=== PATIENT | male | born 1945 | race Caucasian/White ===

== ENCOUNTER 2023-11-12 23:06 | Inpatient (IN) | payer OTHER, SELFPAY ==
[2023-11-12] VITALS (11 sets, daily range): BP systolic 99–127; BP diastolic 59–84; BMI 30.9
[2023-11-12] MEDS: CORDARONE 103 MG IV (21:55)
[2023-11-12 21:57] LABS: % Basophils 0.5 % (0-2); % Eosinophils 6.3 % (0-6); % Immature Granulocytes 0.5 % (0-0.5); % Lymphocytes 24.8 % (20.5-51.1); % Monocytes 11.3 % (1.7-9.3); % Neutrophils 56.6 % (42.2-75.2); Absolute Eosinophils 0.5 10^3/uL (0-0.7); Absolute Lymphocytes 1.8 10^3/uL (1.2-3.4); Absolute Monocytes 0.8 10^3/uL (0.1-0.6); Absolute Neutrophils 4.2 10^3/uL (1.4-6.5); Hematocrit 41.2 % (39.0-52.0); Mean Corpuscular Hgb 28.6 pg (27.0-31.0); Mean Corpuscular Volume 84.3 fL (80.0-94.0); Mean Platelet Volume 10.3 fL (7.4-10.4); Nucleated Red Blood Cells % 0 % (-); Platelet Count 193 10^3/uL (130-400); Red Blood Cell Count 4.89 10^6/uL (4.70-6.10); Red Cell Dist. Width 14.3 % (11.5-14.5); White Blood Cell Count 7.4 10^3/uL (4.8-10.8)
[2023-11-12 22:05] LABS: INR 1.05; PT 13.7 Sec (11.4-14.6)
[2023-11-12 22:06] LABS: APTT 32.4 Sec (23.4-35.0)
--- NOTE | 2023-11-12 22:10 | ED.GENMED ---
History of Present Illness
General
Chief Complaint: Chest Pain
Source: patient and family
Exam Limitations: none
Time Seen by Provider: 11/12/23 21:34
Travel History
Have you had any contact with someone who has COVID-19?: No
Do you have any symptoms of coronavirus? Fever > 100 degrees, chills, cough, shortness of breath, sore throat, loss of taste or smell, muscle aches, or headache?: No
History of Present Illness
History of Present Illness:
78-year-old male with intermittent episodes of substernal chest pain over the last week. At times these are associated with neck pain. These are also associated with dizziness and blurry vision. He has had a few episodes over the last week but
many more episodes today. Described as dull achy. No shortness of breath.
Past History
Past History
ED Past Medical History: COPD, HTN and Hypercholesterolemia
ED Past Surgical History: Orthopedic; Negative Cardiac (cath 06/2013)
Social History
Tobacco: Smoker
Alcohol: Binge drinker
Drug: None
Personal:
Living: with family
Employment: Retired
Family History
Family History: Hypertension
Review of Systems
Review of Systems
All Other Systems: Not applicable
Respiratory: Reports no symptoms
ABD/GI: Reports no symptoms
Phy Exam
Physical Exam
Physical Exam:
GENERAL: Alert and oriented in no apparent distress
EYE: Orbits normal.
NECK: Supple, no thyroid palpable
ENT: Pharynx without erythema
CARDIAC: Regular rate and rhythm without any obvious murmurs. Episodes of pulselessness during V. tach
LUNGS: Clear breath sounds,normal
ABDOMEN: Soft, without focal tenderness or distention
NEUROLOGICAL: Alert and oriented , grossly non-focal
SKIN: Warm and dry
MUSCULOSKELETAL: No edema,no deformity.Good color
PSYCH: Normal and appropriate interaction.
Scores
Heart Score for Chest Pain Patients
STEMI patient?: No
History: Moderately Suspicious
ECG: Nonspecific Repolarization
Age: >/= 65 years
Risk Factors: >/= 3 Risk Factors or History of CAD
Troponin: </= Normal Limit
Heart Score for Chest Pain Patients: 6
Heart Score Risk: 20.3% MACE over next 6 weeks
Course
Orders/Labs/Results
Orders:
Orders
11/12/23 20:58
EKG [Electrocardiogram (*1)] Urgent
Reason for Study: Chest Pain
EKG- Treatment ONCE
11/12/23 21:40
IV Insert/Care/Rem.- Treatment PRN
Pulse Ox/cont/shift [RESP] Stat
Quantity: 1
11/12/23 21:41
Cardiac Monitoring- Treatment ONCE
11/12/23 21:42
Amiodarone [Cordarone] 150 mg .ROUTE .STK-MED ONE
11/12/23 21:49
Basic Metabolic Panel Urgent
Complete Blood Count/With Diff Urgent
Magnesium Urgent
Comment: ADD ON
PTT Urgent
Prothrombin Time Urgent
Troponin I Urgent
11/12/23 21:55
Amiodarone [Cordarone] 150 mg Dextrose 5%/Water 100 ml [D5w] 100 ml IV NOW
11/12/23 21:58
Add On- LAB Urgent
Tests Added?: Magnesium
11/12/23 22:05
Amiodarone [Cordarone] 900 mg DEXTROSE 5% PVC-free BAG [D5W PVC-free BAG] 500 ml IV NOW
Initial Dose in mg/min:: 1
Duration of initial dose (hours):: 6
Subsequent dose in mg/min:: 0.5
Duration of subsequent dose (hours):: 18
Maximum dose in mg/min:: 1
Hold and notify provider if:: Heart rate < 60 BPM or SBP < 90 mmHg or MAP < 60 mmHg
11/12/23 22:13
EKG [Electrocardiogram (*1)] Urgent
Reason for Study: Chest Pain
EKG- Treatment ONCE
11/12/23 22:15
CR Chest Portable - 1 View Urgent
Comment:
Reason For Exam: cp
Reason Study Needs to be Portable: Unable to Transport
11/12/23 23:01
Admit/Transfer Patient As Directed
Co-Sign Provider:
Level of Care: Inpatient admission
Assign to:: IVU
Physician / Group: ian
Diagnosis: nonsustained vtach
Reason for Hospitalization: nonsustained vtach
Expected length of stay greater than two midnights?: Yes
ELOS- Estimated Length of Stay in days: 2
I certify the patient meets the requirements for IP care: Yes
11/12/23 23:03
Code Status As Directed
Resuscitation Status: Full Code
11/13/23 00:42
Amiodarone [Cordarone] 900 mg DEXTROSE 5% PVC-free BAG [D5W PVC-free BAG] 500 ml IV PER PROTOCOL
Initial Dose in mg/min:: 1
Duration of initial dose (hours):: 6
Subsequent dose in mg/min:: 0.5
Duration of subsequent dose (hours):: 18
Maximum dose in mg/min:: 1
Hold and notify provider if:: Heart rate < 60 BPM or SBP < 90 mmHg or MAP < 60 mmHg
11/13/23 00:42
Activity As Directed
Activity Level: As Tolerated
Vital Signs As Directed
Frequency: Per unit guidelines
DX Deep Vein Thrombosis Video Routine
11/13/23 05:13
Complete Blood Count/With Diff IN AM
Comprehensive Metabolic Panel IN AM
11/13/23 08:00
Heparin 5,000 units SC Q12
11/13/23 Dinner
Cholesterol Lowering
At Your Request: Full Participation
Does patient need a safe tray?: No
Cholesterol Lowering: Sodium, 2 Gram
Abnormal Lab Results
11/12/23
21:49
Absolute Monos (auto) 0.8 H 10^3/uL
(0.1-0.6)
Monocytes % 11.3 H %
(1.7-9.3)
Eosinophils % 6.3 H %
(0-6)
Carbon Dioxide 20 L mmol/L
(22-30)
Glucose 130 H mg/dl
(70-99)
11/12/23 21:49
11/12/23 21:49
Vital Signs
Initial and Last Documented VS:
Initial Vital Signs
Temp Pulse Resp BP Pulse Ox
98.0 F 115 20 108/84 96
11/12/23 20:59 11/12/23 20:59 11/12/23 20:59 11/12/23 20:59 11/12/23 20:59
Last Documented Vital Signs
Temp Pulse Resp BP Pulse Ox
97.7 F 63 18 116/64 94
11/13/23 22:54 11/14/23 00:00 11/13/23 22:54 11/13/23 23:02 11/13/23 22:54
*Pulse Oximetry
Patient hypoxic: no
*EKG
Interpreted by ED Provider?: Yes
Interpretation: abnormal
Comparison EKG: changes noted
Heart Rate: 110
Rate: tachycardiac
Rhythm: sinus
[place]: left axis deviation
Interval: normal interval
QRS Pattern: normal QRS
Ischemia: non-specific ST changes
*Ship Erector Interpretation
Rate: normal
Interpretation: abnormal
Heart Rate: 80
Rhythm: sinus and other (Multiple episodes of runs of V. tach typically 6-12 beats.)
*Critical Care Note
Total Time (30-74mins, 75-104mins- exclusive of procedures): 45
Data Reviewed
Review of Other/Old Records Reveals: Labs, Records, Testing and Discharge Summary
Update Note
Update Note:
Patient with multiple episodes of V. tach. These seem to correlate with his symptoms. Amiodarone 150 ordered and drip ordered. Reviewed his QT interval. We will hold his other QT prolonging meds this evening. Discussed with cardiology. Patient
currently asymptomatic.
2240... Repeat EKG sinus rhythm with first-degree block PACs left bundle branch block. Occasional PVC. Patient has bibasilar changes on x-ray but no acute lung symptoms
ED Attending Note
-
Portions of this chart may have been created with voice recognition software.� Occasional wrong word or��sound alike� substitutions may have occurred due to the inherent limitations of voice recognition software.
Discharge Plan
Departure
Patient Disposition: Admit
Date of Disposition: 11/12/23
Time of Disposition: 22:12
Presentation/result/management discussed w/ accepting MD/DO: Cardiology
Discharge Problem:
Recurrent nonsustained V. tach
Interventions
Interventions:
*Risk Screen - Suicide Last Done: 11/12/23 20:59
*General Assessment Last Done: 11/12/23 20:59
*Neglect/Abuse Screening Last Done: 11/12/23 20:59
ED- Fall Risk Assessment Last Done: 11/12/23 21:54
*ED COVID-19 Vaccine History Last Done: 11/13/23 00:49
*Nursing Disposition Last Done: 11/13/23 00:50
ED- Cardiac Assessment Last Done: 11/12/23 21:54
Discharge Date and Time
Discharge Date/Time: 11/13/23 00:50
[2023-11-12 22:13] LABS: Blood Urea Nitrogen 18 mg/dl (9-20); Carbon Dioxide 20 mmol/L (22-30); Chloride 105 mmol/L (98-107); Estimated Creatinine Clearance 55 ml/min; Glucose 130 mg/dl (70-99); Magnesium 1.8 mg/dl (1.6-2.3); Sodium 138 mmol/L (135-145); eGFR > 60.00
[2023-11-12 22:20] LABS: Troponin I 0.015 ng/ml
[2023-11-12] MEDS: CORDARONE 518 MG IV (22:24)
--- NOTE | 2023-11-12 23:10 | HPS.HSE ---
Family Physician
-
Family Physician: Steven Reynolds
Chief Complaint
-
chest pain
History of Present Illness
78-year-old male with past medical history of nonischemic cardiopathy/HFrEF, orthostatic hypotension, hypertension, hyperlipidemia, COPD, obstructive sleep apnea, cognitive dysfunction, recurrent/smoldering distal descending colon diverticulitis
status post sigmoidectomy, obesity, presenting with intermittent episodes of substernal chest pain described as dull and achy over the past week also associated with neck pain sometimes radiating to ears and associated with warmth. Also has
dizziness and blurry vision. No shortness of breath. He had a few episodes over the past week but many more episodes today.
Medical History
Past Medical History
Past Medical History: Reports Other (nonischemic cardiopathy/HFrEF, orthostatic hypotension, hypertension, hyperlipidemia, COPD, obstructive sleep apnea, cognitive dysfunction, recurrent/smoldering distal descending colon diverticulitis status post
sigmoidectomy, obesity)
Past Surgical History: Reports None
Social History
Tobacco: Non-smoker
Alcohol: None
Drug: None
Family History
Family History: Not pertinent
Allergies / Home Medications
Allergies reflects when Allergies were last updated in [facility].
Home Medications with original date entered in [facility]
Allergy/Medication List:
Allergies
Allergy/AdvReac Type Severity Reaction Status Date / Time
No Known Allergies Allergy Verified 11/12/23 20:58
Home Medications
aspirin 81 mg tablet,delayed release 81 mg PO Q48H Blood clot prevention/tx 10/05/22
atorvastatin 40 mg tablet (Lipitor) 40 mg PO DAILY High cholesterol 10/05/22
budesonide-formoterol HFA 160 mcg-4.5 mcg/actuation aerosol inhaler 2 puff inhalation R BID Lung/breathing issues 10/05/22
citalopram 10 mg tablet 10 mg PO DAILY Mental Health/Anxiety 10/05/22
levocetirizine 5 mg tablet (Xyzal) 5 mg PO HS Allergies 10/05/22
gabapentin 300 mg capsule 300 mg PO HS Pain 11/03/22
lisinopril 10 mg tablet 10 mg PO DAILY Blood Pressure 11/03/22
metoprolol succinate 25 mg tablet,extended release 24 hr (Toprol XL) 25 mg PO BID Blood Pressure 08/21/23
pantoprazole 40 mg tablet,delayed release 40 mg PO DAILY Gastrointestinal issue 30 days #30 tabs 08/27/23
aspirin 325 mg tablet 325 mg PO ONCE 11/12/23
guaifenesin 200 mg tablet 200 mg PO BID 11/12/23
Review of Systems
-
History Source: Patient
A 12 point ROS was completed and negative except as noted: Yes
Constitutional: Reports No Symptoms
EENT: Reports No Symptoms
Respiratory: Reports No Symptoms
Cardiac: Reports No Symptoms
Abdomen/GI: Reports No Symptoms
: Reports No Symptoms
Musculoskeletal: Reports No Symptoms
Skin: Reports No Symptoms
Neurological: Reports No Symptoms
Endocrine: Reports No Symptoms
Hematologic/Lymphatic: Reports No Symptoms
Psych: Reports No Symptoms
Physical Exam
Vital Signs
Vital Signs
Temp Pulse Resp BP Pulse Ox
98.0 F 97 16 123/75 95
11/12/23 20:59 11/12/23 22:30 11/12/23 22:30 11/12/23 22:30 11/12/23 22:30
Physical Exam
General: Well Developed, Well Nourished and No Apparent Distress
HEENT: NormoCephalic, Moist mucous membranes and Atraumatic
Respiratory: Clear
Cardiac: S1/S2 and Regular Rhythm; No Murmur or Rub
GI: Soft, Non Tender, Non Distended and Normal Bowel Sounds; No Organomegaly
Rectal: Deferred by Provider
Musculoskeletal: No Clubbing, No Cyanosis and No Edema
Skin: No Rash
Neuro: Nonfocal/grossly intact
Laboratory Results
-
11/12/23 21:49
11/12/23 21:49
Laboratory Results
PT 13.7 Sec (11.4-14.6) 11/12/23 21:49
INR 1.05 11/12/23 21:49
APTT 32.4 Sec (23.4-35.0) 11/12/23 21:49
Troponin I 0.015 ng/ml 11/12/23 21:49
Data Reviewed
-
Lab Data: Labs Reviewed by me
Old Records: Reviewed
Impression/Plan
-
IMPRESSION:
PLAN:
# Multiple episodes of nonsustained ventricular tachycardia
-EKG shows sinus rhythm with first-degree AV block with PACs, left bundle branch block
-Cardiology recommended amiodarone drip
-QTc of 442
-Hold citalopram to avoid QT prolongation
-Troponin 0.015, continue to trend
-Check chest x-ray
-Continue aspirin
Chronic HFrEF/nonicshemic cardiomyopathy
-Recent echo shows 40 to 45% EF
-Continue metoprolol
Essential hypertension
-Continue lisinopril
Orthostatic hypotension
Hyperlipidemia
-Continue statin
COPD
Obstructive sleep apnea
-Noncompliant with CPAP
Mild cognitive impairment
-Hold citalopram
Recurrent diverticulitis status post sigmoidectomy
Obesity
GERD
-Continue Protonix
Full code
DVT prophylaxis- heparin
Cardiac diet
[2023-11-13] VITALS (9 sets, daily range): BP systolic 103–117; BP diastolic 62–96; BMI 30.9
[2023-11-13] MEDS: TYLENOL 650 MG PO (01:28)
[2023-11-13] MEDS: ASPIR LOW (ENTERIC COATED) 81 MG PO (01:28)
--- NOTE | 2023-11-13 01:54 | PTCARENOTE ---
Pt rec'd from ED on stretcher awake,alert c/o blurriness, Sinus on telemetry with with occ pvc's first degree with BBB. + cough non productive. Iv Amio gtt infusing at 1 mg/hr. Pt made aware to call nursing if pain at site.
--- NOTE | 2023-11-13 05:34 | PTCARENOTE ---
Pt remains sinus no VT noted. Amio gtt titrated per protocol to 0.5 mg /hr 16.7 ml/hr
[2023-11-13 05:47] LABS: % Basophils 0.3 % (0-2); % Eosinophils 7.8 % (0-6); % Immature Granulocytes 0.5 % (0-0.5); % Lymphocytes 26.1 % (20.5-51.1); % Monocytes 10.8 % (1.7-9.3); % Neutrophils 54.5 % (42.2-75.2); Absolute Eosinophils 0.5 10^3/uL (0-0.7); Absolute Lymphocytes 1.5 10^3/uL (1.2-3.4); Absolute Monocytes 0.6 10^3/uL (0.1-0.6); Absolute Neutrophils 3.2 10^3/uL (1.4-6.5); Hemoglobin 13.2 g/dL (13.0-18.0); Mean Corpuscular Hgb 28.5 pg (27.0-31.0); Mean Corpuscular Volume 86.4 fL (80.0-94.0); Mean Platelet Volume 10.4 fL (7.4-10.4); Nucleated Red Blood Cells % 0 % (-); Platelet Count 170 10^3/uL (130-400); Red Blood Cell Count 4.63 10^6/uL (4.70-6.10); Red Cell Dist. Width 14.3 % (11.5-14.5); White Blood Cell Count 5.9 10^3/uL (4.8-10.8)
[2023-11-13 06:08] LABS: ALT (SGPT) 19 U/L (0-50); AST (SGOT) 24 U/L (17-59); Albumin 3.4 g/dl (3.5-5.0); Alkaline Phosphatase 104 U/L (38-126); Blood Urea Nitrogen 16 mg/dl (9-20); Calcium 8.4 mg/dl (8.4-10.2); Carbon Dioxide 23 mmol/L (22-30); Chloride 109 mmol/L (98-107); Estimated Creatinine Clearance 53 ml/min; Glucose 116 mg/dl (70-99); Potassium 3.8 mmol/L (3.5-5.1); Sodium 138 mmol/L (135-145); Total Bilirubin 0.6 mg/dl (0.2-1.3); Total Protein 5.7 g/dl (6.3-8.2); eGFR > 60.00
[2023-11-13 06:10] LABS: Troponin I 0.019 ng/ml
--- NOTE | 2023-11-13 06:18 | PTCARENOTE ---
Pt called nursing to room stating he felt something wet at his iv site. some leakage noted on drsg. small infiltrate noted. no redness or cord noted
IV Amio gtt switched to RFA.
--- NOTE | 2023-11-13 06:28 | PTCARENOTE ---
IV team notified of left wrist iv site leaking (amio site) iv site removed.
[2023-11-13] MEDS: SYMBICORT 160/4.5 MCG INHALER 2 PUFF INH ×2 (07:55→17:48)
[2023-11-13] MEDS: ZESTRIL 10 MG PO (08:34)
[2023-11-13] MEDS: HEPARIN 5000 UNITS SC ×2 (08:34→19:33)
[2023-11-13] MEDS: LIPITOR 40 MG PO (08:34)
[2023-11-13] MEDS: PROTONIX 40 MG PO (08:34)
[2023-11-13] MEDS: ROBITUSSIN 200 MG PO ×2 (08:34→19:34)
[2023-11-13] MEDS: TOPROL XL 25 MG PO ×2 (08:34→19:34)
--- NOTE | 2023-11-13 08:55 | PTCARENOTE ---
assumed care of pt from previous shift RN, sinus rhythm on tele w 1st degree HB and BBB, + peripheral pulses, no edema, denies CP or SOB. Lungs diminished bilaterally. POx 94% on RA. +BS, NPO maintained until see by . Amiodarone infusing through
right FA PIV.
--- NOTE | 2023-11-13 08:55 | CON.CAR ---
Addendum entered and electronically signed by Mendez Todd MD 11/13/23 10:21:
78-year-old man with history of nonischemic cardiomyopathy with improved EF, most recent EF 45% by cardiac catheterization in 2022. No significant coronary artery disease identified at cardiac catheterization. Now admitted with 2 or 3 episodes of
dizziness and lightheadedness last week, associated with tightness in the neck at the moment of symptoms, with 3 or 4 episodes yesterday all occurring at rest. Presented to emergency department with runs of rapid nonsustained VT correlating with
symptoms.
PMH: Nonischemic cardiomyopathy, most recent EF 45%, possibly alcohol related, COPD, hypertension, hyperlipidemia, possible mild cognitive impairment, untreated sleep apnea, history of PVCs with 2 episodes of nonsustained VT on monitor September
2021, depression
SH: , retired, lives with daughter, former smoker, former alcohol
FH: Noncontributory
Surgical history: Numerous orthopedic procedures hands, knees, feet, robotic sigmoidectomy September 2023
Allergies: None
Review of systems: Negative except as above
Hemoglobin 13.2 platelets 170, BUN and creatinine 16 and 1.2, magnesium 1.8, troponin is 0.019 and 0.015
Chest x-ray no active disease
ECG: Sinus rhythm, first-degree AV block left axis, left bundle branch block, PVCs
Impression:
Symptomatic nonsustained VT
Nonischemic cardiomyopathy with improved EF, most recent EF 45% 2022, possibly alcohol related
Minimal coronary artery disease by cardiac catheterization 2022
COPD
History of alcohol use disorder
History of tobacco use, rare cigars now
Hypertension
Hyperlipidemia
History of PVCs
Untreated obstructive sleep apnea
Robotic sigmoidectomy September 2023
Plan:
He presents with symptomatic nonsustained VT at a rapid cycle length.
I suspect VT relates to nonischemic cardiomyopathy and am skeptical that it is a manifestation of an acute coronary syndrome or severe obstructive CAD. At this point, I do not feel pressed to repeat cardiac catheterization in the past, we have
canceled stress testing related to concerns about dobutamine and regadenoson. However, will discuss with electrophysiology regarding need for cardiac catheterization.
We will repeat echocardiogram.
Will also review with EP as to best treatment strategy for VT, options likely limited to amiodarone versus VT ablation. He is already on metoprolol and in the past has tolerated carvedilol poorly probably related to COPD.
Original Note:
Consultation
Consultation Request
Date/Time Consultation Requested: 11/12/2023
Date/Time Consultation Performed: 11/13/2023
Requesting Provider: Dr. Arreguin
Performing Provider: Rekha Cowart PA-C for Dr. Mendez Todd
Reason for Consultation: Chest pain, arrhythmia
Medical History
-
History of Present Illness:
Patient is a 78-year-old male with past medical history significant for nonobstructive coronary artery disease on cardiac catheterization October 2022, nonischemic cardiomyopathy with mildly reduced ejection fraction of 45%, hypertension,
hyperlipidemia, former smoker with COPD, obstructive sleep apnea with intolerance to CPAP and recurrent diverticulitis recent robotic sigmoidectomy in September 2023 who presented to emergency department 11/12/2023 with intermittent chest pain
radiating into neck associated with warmth sensation, dizziness and blurry vision. He reports symptoms have been intermittent and ongoing for approximately 2 to 3 weeks. They seem to be increasing in frequency. He denies having syncope or
presyncope. Baseline EKG on presentation showed sinus rhythm with first-degree AV block, PACs and left bundle branch block. QTc 442 ms. Troponin 0.015, 0.019. Potassium 4.0, magnesium 1.8. Chest x-ray stable bibasilar atelectasis scarring. In
emergency department he was noted to have multiple episodes of nonsustained ventricular tachycardia which correlated with his symptoms. He was provided IV amiodarone bolus and drip.
At time of this evaluation patient is feeling well. He has not had any further symptoms since starting Amio gtt.
PMH:
Nonischemic cardiomyopathy, EF 45%
Nonobstructive coronary artery disease
Hypertension
Hyperlipidemia
PVCs
Former smoker
COPD
Obstructive sleep apnea, CPAP intolerant
Diverticulitis s/p robotic sigmoidectomy on 09/17/2023
Past Medical History
Past Medical History: Other (See HPI)
Past Surgical History: Bowel Resection (s/p robotic sigmoidectomy on 09/17/2023), Orthopedic (Right knee arthroscopy, right foot surgery, bilateral hand surgery) and Other (Bilateral hernia repair)
Social History
Tobacco: Former Smoker (quit cigarettes 2001, occasional cigar)
Alcohol: Occasional (rare 1-2 drinks a month)
Drug: None
Personal:
Living: With Family
Family History
Family History: Other (Father had dementia, mother diabetes and heart disease)
Allergies / Home Medications
Allergy/AdvReac Type Severity Reaction Status Date / Time
No Known Allergies Allergy Verified 11/13/23 01:03
Medication Instructions Recorded Confirmed Type
aspirin 81 mg tablet,delayed 81 mg PO Q48H Blood clot 10/05/22 11/12/23 History
release prevention/tx
atorvastatin 40 mg tablet (Lipitor) 40 mg PO DAILY High cholesterol 10/05/22 11/12/23 History
budesonide-formoterol HFA 160 2 puff inhalation R BID 10/05/22 11/12/23 History
mcg-4.5 mcg/actuation aerosol Lung/breathing issues
inhaler
citalopram 10 mg tablet 10 mg PO DAILY Mental 10/05/22 11/12/23 History
Health/Anxiety
levocetirizine 5 mg tablet (Xyzal) 5 mg PO HS Allergies 10/05/22 11/12/23 History
gabapentin 300 mg capsule 300 mg PO HS Pain 11/03/22 11/12/23 History
lisinopril 10 mg tablet 10 mg PO DAILY Blood Pressure 11/03/22 11/12/23 History
metoprolol succinate 25 mg 25 mg PO BID Blood Pressure 08/21/23 11/12/23 History
tablet,extended release 24 hr
(Toprol XL)
pantoprazole 40 mg tablet,delayed 40 mg PO DAILY Gastrointestinal 08/27/23 11/12/23 Rx
release issue 30 days #30 tabs
aspirin 325 mg tablet 325 mg PO ONCE 11/12/23 11/12/23 History
guaifenesin 200 mg tablet 200 mg PO BID 11/12/23 11/12/23 History
Review of Systems
-
History Source: Patient
All other systems: Negative unless noted
Physical Exam
Vital Signs
Temp Pulse Resp BP Pulse Ox
97.5 F 63 18 115/66 95
11/13/23 07:57 11/13/23 08:00 11/13/23 07:59 11/13/23 07:57 11/13/23 07:59
GEN: No distress, awake, Ox3
HEENT: supple, anicteric, mmm
LUNGS:faint crackles at bases otherwise CTA, no wheezes/rales
CV: Reg, S1/S2, no murmur, rub or gallop
ABD: soft, BS+, NT/ND
EXT: No edema, clubbing or cyanosis
NEURO: Gross non-focal
SKIN: No rash, warm, dry, pink
Lab Results
11/13/23 05:13
11/13/23 05:13
Troponin I Cancelled 11/13/23 12:42
Impression / Plan
-
PCP: Steven Reynolds
Personal Lines Advisor: Dr. EDGAR Todd
Impression:
Presented with 11/12/2023 with intermittent chest pain, blurry vision and dizziness
Nonsustained ventricular tachycardia
Recent admission 09/2023 for recurrent diverticulitis
s/p robotic sigmoidectomy on 09/17/2023
Nonischemic cardiomyopathy, EF 45%
Nonobstructive coronary artery disease
Hypertension
Hyperlipidemia
PVCs
Former smoker
COPD
Obstructive sleep apnea, CPAP intolerant
Nuclear Sestamibi 10/30/22. Mild to moderate-sized, mid intensity defect in the basal, mid, inferior and apical segments. Summed rest score was 4.
Cardiac cath 11/03/2022:�LM: NL; LAD: LI, A [employer] wire was advanced to the distal LAD and the iFR serially measured at/above the ischemic threshold. RAMUS:LI. LCX:LI. RCA: LI.� LVG:Mildly reduced LVEF estimated 45% with moderate global
hypokinesis that is more pronounced in the inferior and anterolateral gallegos
Echo 10/30/22: EF 40-45%,� mild concentric LVH with inferior, anteroseptal, and focal apical hypokinesis. Thickened mitral leaflets w/ trace MR. nl LA. trace AR. nl RV. nl RA. aortic root is 4cm. Similar to December 2021.
Echo 09/16/2023: EF 40 to 45%, mild global hypokinesis, stage I diastolic dysfunction, mild MR, trace TR, mildly dilated aortic root at 4.0 cm.
Plan:
Patient is a 78-year-old male with past medical history significant for nonobstructive coronary artery disease on cardiac catheterization October 2022, nonischemic cardiomyopathy with mildly reduced ejection fraction of 45%, hypertension,
hyperlipidemia, former smoker with COPD, obstructive sleep apnea with intolerance to CPAP and recurrent diverticulitis recent robotic sigmoidectomy in September 2023 who presented to emergency department 11/12/2023 with intermittent chest pain
radiating into neck associated with warmth sensation, dizziness and blurry vision. He reports symptoms have been intermittent and ongoing for approximately 2 to 3 weeks. They seem to be increasing in frequency. He denies having syncope or
presyncope. Baseline EKG on presentation showed sinus rhythm with first-degree AV block, PACs and left bundle branch block. QTc 442 ms. Troponin 0.015, 0.019. Potassium 4.0, magnesium 1.8. Chest x-ray stable bibasilar atelectasis scarring. In
emergency department he was noted to have multiple episodes of nonsustained ventricular tachycardia which correlated with his symptoms. He was provided IV amiodarone bolus and drip.
At time of this evaluation patient is feeling well. He has not had any further symptoms since starting Amio gtt.
-Presented with 11/12/2023 with intermittent chest pain, blurry vision and dizziness.
-Nonsustained ventricular tachycardia multiple episodes 4-12 beats which was symptomatic and correlated with above symptoms.
-Negative troponin x 2.
-Provided amiodarone bolus 150 mg followed by drip starting 11/12/2023.
-No further VT on tele since initiation of Amiodarone, still occasional PVCs
-Start oral Amiodarone 400 mg TID.
-Monitor QTc closely, will repeat EKG daily. EKG 11/13/2023 pending
-Check echo.
-Would hold/Avoid QT prolonging medication including Citalopram
-K+3.8 and magnesium 1.8. Will replete keep K greater than 4 and magnesium greater than 2
-Patient has history of nonobstructive coronary artery disease on cardiac cath 11/03/2022
-History of NICM. Continue Toprol, Lisinopril.
-Will discuss with electrophysiology.
Data Reviewed
-
EKG: Report Reviewed by me, Discussed with Physician, Discussed with Nurse, Discussed with Patient and Discussed with Family
Radiology: Report Reviewed by me, Discussed with Physician, Discussed with Nurse, Discussed with Patient and Discussed with Family
Labs: Labs Reviewed by me, Discussed with Physician, Discussed with Nurse, Discussed with Patient and Discussed with Family
Old Records: Reviewed
--- NOTE | 2023-11-13 10:14 | W.PN.HOSP.TC ---
Today's Communication/Plan
-
Amiodarone drip
Cardio consult
Assessment / Plan
Assessment / Plan
# Multiple episodes of Symptomatic nonsustained ventricular tachycardia
-EKG shows sinus rhythm with first-degree AV block with PACs, left bundle branch block
-Cardiology recommended amiodarone drip
-QTc of 442
-Hold citalopram to avoid QT prolongation
-Troponin 0.015, continue to trend
-chest x-ray: Stable bibasilar atelectasis/scarring. No convincing acute cardiopulmonary process.
-Continue aspirin
09/16/23 Echo: Normal left ventricular wall thickness. Normal left ventricular chamber size.
�Mildly reduced left ventricular systolic function. Left ventricular ejection
�fraction is 40 to 45% visually.� Mild global hypokinesis.� Stage I diastolic
�dysfunction suggestive of abnormal relaxation.
�Mildly dilated aortic root. 4.0 cm.
�Since echocardiogram October 2022, there is no significant change.
Chronic HFrEF/nonischemic cardiomyopathy
-Recent echo shows 40 to 45% EF
-Continue metoprolol
Essential hypertension
-Continue lisinopril
Orthostatic hypotension
Hyperlipidemia
-Continue statin
COPD
Obstructive sleep apnea
-Noncompliant with CPAP
Mild cognitive impairment
-Hold citalopram
Recurrent diverticulitis status post sigmoidectomy
Pt states currently asymptomatic
Hx of Cigarette use in past
currently rare Cigars only
Obesity
GERD
-Continue Protonix
Full code
DVT prophylaxis- heparin
Cardiac diet
Anticipated Discharge: > 48 hours
Subjective/Interval History
-
Date of Service: November 13, 2023
Awake, alert, denies chest pain
Objective Data
-
Labs:
Laboratory Results
11/13/23
05:13
WBC 5.9
Hgb 13.2
Hct 40.0
Plt Count 170
Sodium 138
Potassium 3.8
Chloride 109 H
Carbon Dioxide 23
BUN 16
Creatinine 1.2
Glucose 116 H
Calcium 8.4
Total Bilirubin 0.6
AST 24
ALT 19
Alkaline Phosphatase 104
Vital Signs:
Vital Signs
Temp Pulse Resp BP Pulse Ox
97.5 F 63 18 115/66 94
11/13/23 07:57 11/13/23 08:00 11/13/23 07:59 11/13/23 07:57 11/13/23 09:06
I&O
11/12/23 11/13/23 11/14/23
06:59 06:59 06:59
Intake Total 300 / 300 16.7 / 16.7
Output Total 500 / 500
Balance -200 / -200 16.7 / 16.7
Review of Systems
-
History Source: Patient and Coordinated Provider
Constitutional: Denies Fever
EENT: Reports No Symptoms Reported
Respiratory: Reports No Symptoms; Denies Cough or Trouble Breathing
Cardiac: Reports No Symptoms; Denies Chest Pain (prior to admission, radiating into neck with warmth sensation, none since admission), Palpitations or Orthopnea
Abdomen/GI: Reports No Symptoms
Genitourinary: Reports No Symptoms
Neuro: Reports Dizzy (prior to admit, since resolved)
Physical Exam
-
General: Well Developed, Well Nourished and No Apparent Distress
HEENT: Normocephalic, Atraumatic and Moist Mucous Membranes
Respiratory: Rales (fine bibasilar rales, noted on deep inspiration)
Cardiac: Regular Rhythm and S1/S2
GI: Soft, Nontender and Nondistended
Musculoskeletal: No Clubbing, No Cyanosis and No Edema
Neuro: Awake, Alert and Oriented
Psych: Calm
[2023-11-13] MEDS: KCL 40 MEQ PO (10:25)
[2023-11-13] MEDS: PACERONE 400 MG PO ×3 (10:25→23:02)
[2023-11-13] MEDS: MAGNESIUM OXIDE 500 MG PO (10:25)
[2023-11-13 10:56] LABS: NT-proBNP 234 pg/ml; Troponin I 0.016 ng/ml
--- NOTE | 2023-11-13 12:14 | CM ---
Chart reviewed. Patient is independent of ADLS, lives with his grandson in an apartment, [address], 0 [address]ILVER, 0 DME. Patient is not current with VN and said he is not interested. He said his granddaughter works in his [employer]'s office. Plan
is for the patient to return home. CM to follow
--- NOTE | 2023-11-13 14:21 | PTCARENOTE ---
amiodarone gtt discontinued, IV removed and new IV started.
[2023-11-13 14:25] LABS: TSH Reflex To Free T4 3.38 uIU/ml (0.47-4.68)
--- NOTE | 2023-11-13 17:27 | W.PN.UPDATE ---
Update Note
Progress Note Update
Spoke with Dr. Todd, daughter, plan to meet with patient regarding his symptoms. Had 15 minutes of near syncope and heart racing yesterday and came to the ER. He was found to have salvos of non sustained ventricular tachycardia here and IV
amiodarone was initiated. His EF% by echo here is 30-35% and is similar to 09/2023 echocardiogram in review of those images. He is on beta-rissa and MARQUES-I. QRS duration is 122-128msec with prolonged MI interval in LBBB pattern.
Reviewed options with daughter and plan to with patient and discussed implant as well as risks in detail. Will plan IV/PO amiodarone transition and BIVICD thursday. Daughter and Dr. Todd in agreement.
[2023-11-13] MEDS: NEURONTIN 300 MG PO (22:59)
[2023-11-13] MEDS: ZYRTEC 5 MG PO (22:59)
[2023-11-14] VITALS (7 sets, daily range): BP systolic 100–124; BP diastolic 50–76; BMI 30.4
--- NOTE | 2023-11-14 00:32 | PTCARENOTE ---
Pt received at start of shift. HR SR/SB w/ 1st degree HB and BBB 50s-70s. BP stable. Pt in bed with daughter at bedside. Educated pt on plan of care, pt states no further questions. Pt denies any CP, vision changes, or lightheadedness/dizziness at
this time. Informed to notify RN if any changes, call simental within reach.
--- NOTE | 2023-11-14 04:38 | PTCARENOTE ---
swelling noted at IV site where amio infused at L wrist/forearm area. Pt states tender to touch. Ice pack placed on site.
[2023-11-14 05:21] LABS: Blood Urea Nitrogen 19 mg/dl (9-20); Calcium 9.2 mg/dl (8.4-10.2); Carbon Dioxide 22 mmol/L (22-30); Chloride 106 mmol/L (98-107); Estimated Creatinine Clearance 58 ml/min; Glucose 97 mg/dl (70-99); Potassium 4.6 mmol/L (3.5-5.1); Sodium 139 mmol/L (135-145); eGFR > 60.00
[2023-11-14] MEDS: SYMBICORT 160/4.5 MCG INHALER 2 PUFF INH ×2 (08:16→18:01)
[2023-11-14] MEDS: PROTONIX 40 MG PO (08:46)
[2023-11-14] MEDS: PACERONE 400 MG PO ×3 (08:47→22:19)
[2023-11-14] MEDS: ZESTRIL 10 MG PO (08:47)
[2023-11-14] MEDS: ROBITUSSIN 200 MG PO ×2 (08:47→20:31)
[2023-11-14] MEDS: HEPARIN 5000 UNITS SC ×2 (08:47→20:31)
[2023-11-14] MEDS: TOPROL XL 25 MG PO (08:47)
[2023-11-14] MEDS: LIPITOR 40 MG PO (08:47)
--- NOTE | 2023-11-14 10:11 | W.PN.CARDCBS ---
Today's Communication / Plan
-
Stop lisinopril
Start Entresto
Start spironolactone
BiV ICD on Thursday
Impression / Plan
-
PCP: Steven Reynolds
Lab Intern: Dr. EDGAR Todd
Impression:
Presented with 11/12/2023 with intermittent chest pain, blurry vision and dizziness
Nonsustained ventricular tachycardia
Recent admission 09/2023 for recurrent diverticulitis
s/p robotic sigmoidectomy on 09/17/2023
Nonischemic cardiomyopathy, EF 45%
Nonobstructive coronary artery disease
Hypertension
Hyperlipidemia
PVCs
Former smoker
COPD
Obstructive sleep apnea, CPAP intolerant
Nuclear Sestamibi 10/30/22. Mild to moderate-sized, mid intensity defect in the basal, mid, inferior and apical segments. Summed rest score was 4.
Cardiac cath 11/03/2022:�LM: NL; LAD: LI, A [place] Omni wire was advanced to the distal LAD and the iFR serially measured at/above the ischemic threshold. RAMUS:LI. LCX:LI. RCA: LI.� LVG:Mildly reduced LVEF estimated 45% with moderate global
hypokinesis that is more pronounced in the inferior and anterolateral gallegos
Echo 10/30/22: EF 40-45%,� mild concentric LVH with inferior, anteroseptal, and focal apical hypokinesis. Thickened mitral leaflets w/ trace MR. nl LA. trace AR. nl RV. nl RA. aortic root is 4cm. Similar to December 2021.
Echo 09/16/2023: EF 40 to 45%, mild global hypokinesis, stage I diastolic dysfunction, mild MR, trace TR, mildly dilated aortic root at 4.0 cm.
Echo 11/13/2023: EF 30-35%, global hypokinesis, mild LVH, trace MR, aortic valve grossly normal, right atrium normal left atrium mildly dilated, RV normal, trace TR
Plan:
Case reviewed with electrophysiology. Based on EF of 30 to 35%, with left bundle branch block, biventricular ICD is planned for Thursday.
In the meantime, will switch lisinopril to Entresto, continue metoprolol and amiodarone, add low-dose spironolactone, and consider SGLT2 antagonist. Potassium is 4.6 will need to follow. We may need to decrease metoprolol.
Based on catheterization roughly 1 year ago, we will not repeat at this time, suspect there is no ongoing ACS.
proBNP is 234, which is reassuring.
Progress Note - Lab Intern
Subjective
Date of Service: November 14, 2023:
Allergies: None, outpatient medications: Aspirin, atorvastatin 40 mg a day, budesonide/formoterol, citalopram, gabapentin, guaifenesin, levo cetirizine, lisinopril 10 mg a day, metoprolol ER 25 mg twice daily, pantoprazole
Current medications: As above, plus amiodarone
PMH/PSH/SH/FH: Reviewed
ROS: Some discomfort left great toe
ECG today: Sinus, first-degree AV block, left bundle branch block left axis
BUN and creatinine 19 and 1.1, proBNP 234, troponin 0.016
Objective
Labs:
11/13/23 05:13
11/14/23 04:27
Labs
Hgb 13.2 g/dL (13.0-18.0) 11/13/23 05:13
Hct 40.0 % (39.0-52.0) 11/13/23 05:13
Plt Count 170 10^3/uL (130-400) 11/13/23 05:13
PT 13.7 Sec (11.4-14.6) 11/12/23 21:49
INR 1.05 11/12/23 21:49
APTT 32.4 Sec (23.4-35.0) 11/12/23 21:49
Sodium 139 mmol/L (135-145) 11/14/23 04:27
Potassium 4.6 mmol/L (3.5-5.1) 11/14/23 04:27
BUN 19 mg/dl (9-20) 11/14/23 04:27
Creatinine 1.1 mg/dL (0.7-1.3) 11/14/23 04:27
Glucose 97 mg/dl (70-99) 11/14/23 04:27
Troponins
11/12/23 11/13/23 11/13/23
21:49 00:42 05:13
Troponin I 0.015 Cancelled 0.019 D
11/13/23 11/13/23 11/13/23
06:42 10:22 12:42
Troponin I Cancelled 0.016 Cancelled
11/13/23
16:00
Troponin I Cancelled
Vital Signs and I&O:
Vital Signs
Temp Pulse Resp BP Pulse Ox
36.6 C 55 16 124/65 95
11/14/23 07:34 11/14/23 08:18 11/14/23 08:18 11/14/23 07:33 11/14/23 08:18
Vital Signs
Temp Pulse Resp BP Pulse Ox
36.6 C 55 16 124/65 95
11/14/23 07:34 11/14/23 08:18 11/14/23 08:18 11/14/23 07:33 11/14/23 08:18
Intake & Output
11/12/23 11/13/23 11/14/23 11/15/23
07:59 07:59 07:59 07:59
Intake Total 300 / 300 256.7 / 256.7
Output Total 500 / 500
Balance -200 / -200 256.7 / 256.7
Physical Exam
Physical Exam
124/65, pulse 50s to 60s, resp rate 16, head neck exam unremarkable, lungs rare rhonchi, regular rate and rhythm without obvious murmurs, abdomen benign extremities without clubbing cyanosis or edema neuro nonfocal
[2023-11-14] MEDS: ALDACTONE 12.5 MG PO (12:51)
[2023-11-14] MEDS: TYLENOL 650 MG PO (13:38)
--- NOTE | 2023-11-14 13:40 | PTCARENOTE ---
patient c/o headache, Tylenol po given as ordered.
--- NOTE | 2023-11-14 15:03 | W.PN.HOSP.TC ---
Today's Communication/Plan
-
Entresto started
Lisinopril stopped
Amio now 400 tid
Started Aldactone
Assessment / Plan
Assessment / Plan
# Multiple episodes of Symptomatic nonsustained ventricular tachycardia
-EKG shows sinus rhythm with first-degree AV block with PACs, left bundle branch block
-Cardiology has transitioned pt to Amio 400 mg tid
-QTc of 442
-Hold citalopram to avoid QT prolongation
-chest x-ray: Stable bibasilar atelectasis/scarring. No convincing acute cardiopulmonary process.
-Continue aspirin
09/16/23 Echo: Normal left ventricular wall thickness. Normal left ventricular chamber size.
�Mildly reduced left ventricular systolic function. Left ventricular ejection
�fraction is 40 to 45% visually.� Mild global hypokinesis.� Stage I diastolic
�dysfunction suggestive of abnormal relaxation.
�Mildly dilated aortic root. 4.0 cm.
�Since echocardiogram October 2022, there is no significant change.
Chronic HFrEF/nonischemic cardiomyopathy
-Recent echo shows 40 to 45% EF
-Continue metoprolol
Essential hypertension
-Continue lisinopril
Area of pain in left medial hallux evaluated
currently nothing to suggest infection, but small spur from nail is pressing on medial nail bed
Once cardiac aspect resolved, will need to follow up with Podiatry for intervention on the nail, pt and dgt told
Orthostatic hypotension
Hyperlipidemia
-Continue statin
COPD
Obstructive sleep apnea
-Noncompliant with CPAP
Recurrent diverticulitis status post sigmoidectomy
Pt states currently asymptomatic
Hx of Cigarette use in past
currently rare Cigars only
Obesity
GERD
-Continue Protonix
Full code
DVT prophylaxis- heparin
Cardiac diet
reviewed with dgt at bedside
BiV ICD for Thursday
Anticipated Discharge: > 48 hours
Subjective/Interval History
-
Date of Service: November 14, 2023
In good spirits, awaiting AICD
Objective Data
-
Labs:
Laboratory Results
11/14/23
04:27
Sodium 139
Potassium 4.6
Chloride 106
Carbon Dioxide 22
BUN 19
Creatinine 1.1
Glucose 97
Calcium 9.2
Vital Signs:
Vital Signs
Temp Pulse Resp BP Pulse Ox
97.9 F 58 18 123/72 95
11/14/23 11:34 11/14/23 11:16 11/14/23 11:34 11/14/23 11:16 11/14/23 11:34
I&O
11/13/23 11/14/23 11/15/23
06:59 06:59 06:59
Intake Total 300 / 300 256.7 / 256.7
Output Total 500 / 500
Balance -200 / -200 256.7 / 256.7
Review of Systems
-
History Source: Patient and Coordinated Provider
Constitutional: Denies Fever
EENT: Reports No Symptoms Reported
Respiratory: Reports No Symptoms; Denies Cough or Trouble Breathing
Cardiac: Reports No Symptoms; Denies Chest Pain (prior to admission, radiating into neck with warmth sensation, none since admission), Palpitations or Orthopnea
Abdomen/GI: Reports No Symptoms
Genitourinary: Reports No Symptoms
Musculoskeletal: Reports Other (left medial hallux tenderness)
Neuro: Reports Dizzy (prior to admit, since resolved)
Physical Exam
-
General: Well Developed, Well Nourished and No Apparent Distress
HEENT: Normocephalic, Atraumatic and Moist Mucous Membranes
Respiratory: Rales (fine bibasilar rales, noted on deep inspiration)
Cardiac: Regular Rhythm and S1/S2
GI: Soft, Nontender and Nondistended
Musculoskeletal: No Clubbing, No Cyanosis and No Edema
Neuro: Awake, Alert and Oriented
Psych: Calm
[2023-11-14] MEDS: ZYRTEC 5 MG PO (20:31)
[2023-11-14] MEDS: NEURONTIN 300 MG PO (22:20)
[2023-11-14] MEDS: ASPIR LOW (ENTERIC COATED) 81 MG PO (22:20)
[2023-11-15] VITALS (8 sets, daily range): BP systolic 100–123; BP diastolic 61–76
[2023-11-15 04:08] LABS: Blood Urea Nitrogen 21 mg/dl (9-20); Carbon Dioxide 23 mmol/L (22-30); Chloride 107 mmol/L (98-107); Estimated Creatinine Clearance 53 ml/min; Glucose 97 mg/dl (70-99); Potassium 4.5 mmol/L (3.5-5.1); Sodium 136 mmol/L (135-145); eGFR > 60.00
[2023-11-15] MEDS: SYMBICORT 160/4.5 MCG INHALER 2 PUFF INH ×2 (07:22→17:57)
[2023-11-15] MEDS: ROBITUSSIN 200 MG PO (08:35)
[2023-11-15] MEDS: HEPARIN 5000 UNITS SC ×2 (08:35→20:13)
[2023-11-15] MEDS: TYLENOL 650 MG PO (08:35)
[2023-11-15] MEDS: PROTONIX 40 MG PO (08:35)
[2023-11-15] MEDS: LIPITOR 40 MG PO (08:36)
[2023-11-15] MEDS: ALDACTONE 12.5 MG PO (08:36)
[2023-11-15] MEDS: TOPROL XL PO (08:49)
[2023-11-15] MEDS: PACERONE 200 MG PO ×3 (09:21→22:08)
[2023-11-15] MEDS: PACERONE PO (09:36)
--- NOTE | 2023-11-15 15:54 | W.PN.CARDCBS ---
Today's Communication / Plan
-
ICD in a.m.
Reduce metoprolol and amiodarone for bradycardia
Impression / Plan
-
PCP: Steven Reynolds
Drawing Frame Tender: Dr. EDGAR Todd
Impression:
Presented with 11/12/2023 with intermittent chest pain, blurry vision and dizziness
Nonsustained ventricular tachycardia
Recent admission 09/2023 for recurrent diverticulitis
s/p robotic sigmoidectomy on 09/17/2023
Nonischemic cardiomyopathy, EF 45%
Nonobstructive coronary artery disease
Hypertension
Hyperlipidemia
PVCs
Former smoker
COPD
Obstructive sleep apnea, CPAP intolerant
Nuclear Sestamibi 10/30/22. Mild to moderate-sized, mid intensity defect in the basal, mid, inferior and apical segments. Summed rest score was 4.
Cardiac cath 11/03/2022:�LM: NL; LAD: LI, A [employer] Omni wire was advanced to the distal LAD and the iFR serially measured at/above the ischemic threshold. RAMUS:LI. LCX:LI. RCA: LI.� LVG:Mildly reduced LVEF estimated 45% with moderate global
hypokinesis that is more pronounced in the inferior and anterolateral gallegos
Echo 10/30/22: EF 40-45%,� mild concentric LVH with inferior, anteroseptal, and focal apical hypokinesis. Thickened mitral leaflets w/ trace MR. nl LA. trace AR. nl RV. nl RA. aortic root is 4cm. Similar to December 2021.
Echo 09/16/2023: EF 40 to 45%, mild global hypokinesis, stage I diastolic dysfunction, mild MR, trace TR, mildly dilated aortic root at 4.0 cm.
Echo 11/13/2023: EF 30-35%, global hypokinesis, mild LVH, trace MR, aortic valve grossly normal, right atrium normal left atrium mildly dilated, RV normal, trace TR
Plan:
He looks well but is somewhat bradycardic.
Will reduce metoprolol ER from 25 twice daily to 25 once daily, and reduce amiodarone from 400 mg 3 times daily to 200 mg 3 times daily.
Proceed with ICD implantation in AM.
Progress Note - Drawing Frame Tender
Subjective
Date of Service: November 15, 2023:
He offers no complaints
Allergies none
Outpatient medications aspirin every 48 hours, atorvastatin 40 mg a day budesonide formoterol, citalopram, gabapentin, guaifenesin, levocetirizine, lisinopril 10 mg a day, metoprolol ER 25 twice daily
Current meds as above, plus amiodarone 200 mg 3 times daily and spironolactone 12.5 mg a day, Entresto in place of lisinopril once
PMH/PSH/FH/SH: Reviewed
ROS negative except as above
Telemetry: Bradycardic at times
BUN/creatinine 21 and 1.2 potassium 4.5
Objective
Labs:
11/13/23 05:13
11/15/23 02:54
Labs
Hgb 13.2 g/dL (13.0-18.0) 11/13/23 05:13
Hct 40.0 % (39.0-52.0) 11/13/23 05:13
Plt Count 170 10^3/uL (130-400) 11/13/23 05:13
PT 13.7 Sec (11.4-14.6) 11/12/23 21:49
INR 1.05 11/12/23 21:49
APTT 32.4 Sec (23.4-35.0) 11/12/23 21:49
Sodium 136 mmol/L (135-145) 11/15/23 02:54
Potassium 4.5 mmol/L (3.5-5.1) 11/15/23 02:54
BUN 21 mg/dl (9-20) H 11/15/23 02:54
Creatinine 1.2 mg/dL (0.7-1.3) 11/15/23 02:54
Glucose 97 mg/dl (70-99) 11/15/23 02:54
Troponins
11/12/23 11/13/23 11/13/23
21:49 00:42 05:13
Troponin I 0.015 Cancelled 0.019 D
11/13/23 11/13/23 11/13/23
06:42 10:22 12:42
Troponin I Cancelled 0.016 Cancelled
11/13/23
16:00
Troponin I Cancelled
Vital Signs and I&O:
Vital Signs
Temp Pulse Resp BP Pulse Ox
36.3 C 61 20 120/73 93
11/15/23 15:39 11/15/23 15:39 11/15/23 15:39 11/15/23 15:39 11/15/23 15:39
Vital Signs
Temp Pulse Resp BP Pulse Ox
36.3 C 61 20 120/73 93
11/15/23 15:39 11/15/23 15:39 11/15/23 15:39 11/15/23 15:39 11/15/23 15:39
Intake & Output
11/13/23 11/14/23 11/15/23 11/16/23
07:59 07:59 07:59 07:59
Intake Total 300 / 300 256.7 / 256.7 240 / 240
Output Total 500 / 500
Balance -200 / -200 256.7 / 256.7 240 / 240
Physical Exam
Physical Exam
No distress, head neck exam unremarkable, mildly diminished breath sounds in bases, regular rate and rhythm without obvious murmurs, abdomen benign extremities without much edema distal pulses intact
--- NOTE | 2023-11-15 17:46 | W.PN.HOSP.TC ---
Today's Communication/Plan
-
for AICD tomorrow
Assessment / Plan
Assessment / Plan
# Multiple episodes of Symptomatic nonsustained ventricular tachycardia
-EKG shows sinus rhythm with first-degree AV block with PACs, left bundle branch block
-Cardiology has transitioned pt first to Amio 400 mg tid and now 200 mg tid along with Toprol XL 25 mg daily
-QTc of 442
-Hold citalopram to avoid QT prolongation
-chest x-ray: Stable bibasilar atelectasis/scarring. No convincing acute cardiopulmonary process.
-Continue aspirin
09/16/23 Echo: Normal left ventricular wall thickness. Normal left ventricular chamber size.
�Mildly reduced left ventricular systolic function. Left ventricular ejection
�fraction is 40 to 45% visually.� Mild global hypokinesis.� Stage I diastolic
�dysfunction suggestive of abnormal relaxation.
�Mildly dilated aortic root. 4.0 cm.
�Since echocardiogram October 2022, there is no significant change.
Chronic HFrEF/nonischemic cardiomyopathy
-Recent echo shows 40 to 45% EF
-Continue metoprolol
Essential hypertension
-Continue lisinopril
Area of pain in left medial hallux evaluated
currently nothing to suggest infection, but small spur from nail is pressing on medial nail bed
Once cardiac aspect resolved, will need to follow up with Podiatry for intervention on the nail, pt and dgt told
Orthostatic hypotension
Hyperlipidemia
-Continue statin
COPD
Obstructive sleep apnea
-Noncompliant with CPAP
Recurrent diverticulitis status post sigmoidectomy
Pt states currently asymptomatic
Hx of Cigarette use in past
currently rare Cigars only
Obesity
GERD
-Continue Protonix
Full code
DVT prophylaxis- heparin
Cardiac diet
BiV ICD for Thursday
Anticipated Discharge: 24 - 48 hours
Subjective/Interval History
-
Date of Service: November 15, 2023
Awake, alert, as per son-in-law mentation is at baseline
Objective Data
-
Vital Signs:
Vital Signs
Temp Pulse Resp BP Pulse Ox
97.3 F 50 20 120/73 93
11/15/23 15:39 11/15/23 17:24 11/15/23 15:39 11/15/23 15:39 11/15/23 15:39
I&O
11/14/23 11/15/23 11/16/23
06:59 06:59 06:59
Intake Total 256.7 / 256.7 240 / 240
Balance 256.7 / 256.7 240 / 240
Review of Systems
-
History Source: Patient and Coordinated Provider
Constitutional: Denies Fever
EENT: Reports No Symptoms Reported
Respiratory: Reports No Symptoms; Denies Cough or Trouble Breathing
Cardiac: Reports No Symptoms; Denies Chest Pain (prior to admission, radiating into neck with warmth sensation, none since admission), Palpitations or Orthopnea
Abdomen/GI: Reports No Symptoms
Genitourinary: Reports No Symptoms
Musculoskeletal: Reports Other (left medial hallux tenderness)
Neuro: Reports Dizzy (prior to admit, since resolved)
Physical Exam
-
General: Well Developed, Well Nourished and No Apparent Distress
HEENT: Normocephalic, Atraumatic and Moist Mucous Membranes
Respiratory: Rales (fine bibasilar rales, noted on deep inspiration)
Cardiac: Regular Rhythm and S1/S2
GI: Soft, Nontender and Nondistended
Musculoskeletal: No Clubbing, No Cyanosis and No Edema
Neuro: Awake, Alert and Oriented
Psych: Calm
[2023-11-15] MEDS: ROBITUSSIN PO (20:14)
[2023-11-15] MEDS: ENTRESTO 24 MG/26 MG 1 TAB PO (20:14)
--- NOTE | 2023-11-15 21:40 | PTCARENOTE ---
assumed care of patient at the change of shift. AAOx3. SB-SR with a first degree AVB 50s-60s. bp stable. ambulating in the room independently. denies any lightheadedness/dizziness. reviewed plan of care with patient and verbalized understanding.
reviewed ICD prep. NPO at midnight. answered all questions. call simental within reach; makes needs know.
[2023-11-15] MEDS: ZYRTEC 5 MG PO (22:08)
[2023-11-15] MEDS: NEURONTIN 300 MG PO (22:08)
[2023-11-16] VITALS (11 sets, daily range): BP systolic 85–124; BP diastolic 63–97; BMI 29.9
[2023-11-16 05:09] LABS: Blood Urea Nitrogen 22 mg/dl (9-20); Calcium 9.1 mg/dl (8.4-10.2); Carbon Dioxide 22 mmol/L (22-30); Chloride 104 mmol/L (98-107); Estimated Creatinine Clearance 53 ml/min; Glucose 107 mg/dl (70-99); Potassium 4.5 mmol/L (3.5-5.1); Sodium 137 mmol/L (135-145); eGFR > 60.00
[2023-11-16] MEDS: TYLENOL 650 MG PO ×2 (05:58→15:22)
[2023-11-16] MEDS: PROTONIX 40 MG PO (08:09)
[2023-11-16] MEDS: ENTRESTO 24 MG/26 MG 1 TAB PO ×2 (08:10→20:21)
[2023-11-16] MEDS: ALDACTONE 12.5 MG PO (08:10)
[2023-11-16] MEDS: TOPROL XL 25 MG PO (08:10)
[2023-11-16] MEDS: PACERONE 200 MG PO ×2 (08:10→15:39)
[2023-11-16] MEDS: LIPITOR 40 MG PO (08:10)
--- NOTE | 2023-11-16 08:10 | W.ICD.CONTRA ---
Post ICD/PUBLIC DEFENDER-D
-
History of [place]?: No
LV Function
Left ventricular function study result?: Ejection Fraction >/= 40%
ACEI/ARB/ARNI
Patient already on ACEI/ARB/ARNI: Yes
Beta-Ken
Patient already on Beta Ken: Yes
[2023-11-16] MEDS: ROBITUSSIN 200 MG PO ×2 (08:50→20:23)
[2023-11-16] MEDS: SYMBICORT 160/4.5 MCG INHALER 2 PUFF INH ×2 (09:04→20:07)
--- NOTE | 2023-11-16 09:21 | PTCARENOTE ---
Rec'd pt from prev nsg shift AAOx3 w/no c/o CP or SOB. Pt does c/o 'mild' 2/10 anterior headache, for which the prev nsg shift had administered PO Tylenol as ordered. Pt's VS stable. Pt's daughter at bedside w/pt, awaiting pt's scheduled ICD
placement this AM. This RN spoke w/Cardiac PLASTER MOLDER & rec'd order to hold SC Heparin dose this AM prior to procedure. Pt w/call simental within reach & no addtl needs at this time. Plan of care ongoing.
[2023-11-16] MEDS: HEPARIN SC (09:47)
--- NOTE | 2023-11-16 10:47 | PTCARENOTE ---
Report given to Helen in EP lab & pt transported by EP staff to pathology lab technician/EP lab for ICD placement. Pt w/no jewelry, dentures, or undergarments on. Plan of care ongoing.
--- NOTE | 2023-11-16 11:52 | CM ---
Pricing on Entresto 24-26mg through the patient's PP is $19.35 for a 30 day supply. I will place a free 30 day coupon in the patient's red discharge folder
--- NOTE | 2023-11-16 13:58 | PTCARENOTE ---
Rec'd report from Renetta in EP lab & rec'd pt back into the rm s/p ICD placement at 1345. Pt AAOx3 w/no CP or SOB. Pt c/o 4/10 pain at L chest wall device site. Positioned pt for comfort, elevating LUE on a pillow. Having pt drink some juice &
have some crackers prior to administering PO meds for pain. Post procedure EKG completed. Pt's daughter at bedside. Call simental within reach. Plan of care ongoing.
--- NOTE | 2023-11-16 15:15 | W.PN.HOSP.TC ---
Addendum entered and electronically signed by Broderick Gonzáles MD 11/19/23 14:49:
Correction, lisinopril has been replaced by Entresto
Original Note:
Today's Communication/Plan
-
see bold
Assessment / Plan
Assessment / Plan
# Recurrent symptomatic nonsustained ventricular tachycardia
-EKG shows sinus rhythm with first-degree AV block with PACs, left bundle branch block
-Appreciate cardiology input, continue amiodarone and metoprolol as per cardiology, dose adjustments as per cardiology
-Hold citalopram to avoid QT prolongation
-Chest x-ray: Stable bibasilar atelectasis/scarring. No convincing acute cardiopulmonary process.
-Continue aspirin, status post AICD 11/16 today
-Monitor overnight, discharge when cleared by cardiology
-Patient is independent�no PT needed
09/16/23 Echo: Normal left ventricular wall thickness. Normal left ventricular chamber size.
�Mildly reduced left ventricular systolic function. Left ventricular ejection
�fraction is 40 to 45% visually.� Mild global hypokinesis.� Stage I diastolic
�dysfunction suggestive of abnormal relaxation.
�Mildly dilated aortic root. 4.0 cm.
�Since echocardiogram October 2022, there is no significant change.
Chronic HFrEF/nonischemic cardiomyopathy
-Recent echo shows 40 to 45% EF
-Continue metoprolol
Essential hypertension
-Continue lisinopril
Area of pain in left medial hallux evaluated
currently nothing to suggest infection, but small spur from nail is pressing on medial nail bed
Once cardiac aspect resolved, will need to follow up with Podiatry for intervention on the nail, pt and dgt told
Orthostatic hypotension
Hyperlipidemia
-Continue statin
COPD
Obstructive sleep apnea
-Noncompliant with CPAP
Recurrent diverticulitis status post sigmoidectomy
Pt states currently asymptomatic
Hx of Cigarette use in past
currently rare Cigars only
Obesity
GERD
-Continue Protonix
DVT prophylaxis�subcu heparin
Full code
Updated daughter at bedside 11/16
Physical Exam
General: No acute distress
HEENT: Normocephalic, Atraumatic, EOMI, MMM
Respiratory: Clear to Auscultation bilaterally
Cardiac: Normal S1/S2, tachycardic rate and Rhythm
Chest wall: Dressing over ICD incision
GI: Soft, Nontender, Nondistended, Normal Bowel Sounds
Anticipated Discharge: Within 24 hours
Subjective/Interval History
-
Date of Service: November 16, 2023
Patient reports left-sided chest soreness. Denies palpitations.
Objective Data
-
Labs:
Laboratory Results
11/16/23
04:22
Sodium 137
Potassium 4.5
Chloride 104
Carbon Dioxide 22
BUN 22 H
Creatinine 1.2
Glucose 107 H
Calcium 9.1
Vital Signs:
Vital Signs
Temp Pulse Resp BP Pulse Ox
98.2 F 54 16 114/73 92
11/16/23 06:29 11/16/23 09:07 11/16/23 09:07 11/16/23 04:19 11/16/23 09:07
I&O
11/15/23 11/16/23 11/17/23
06:59 06:59 06:59
Intake Total 490 / 490
Balance 490 / 490
--- NOTE | 2023-11-16 15:30 | PTCARENOTE ---
This RN attempted to get pt OOB to use bathroom & pt had an episode of VT upon standing at bedside. Pt was symptomatic w/dizziness but was not shocked by his new ICD. Pt assisted back to bed & VS obtained. HR 90's, BP 124/77, R 24, SpO2 93% on 2L
via SD. Cardiology notified & ORI Braswell in to see pt. 1600 dose of PO Amiodarone administered as ordered. Labs drawn & sent. PRN Tylenol for 4/10 L chest wall pain at new ICD site administered as ordered. Plan of care ongoing.
--- NOTE | 2023-11-16 15:31 | ITS.CL.ICD ---
Strategic Marketing Leader - ICD
Implantable Cardioverter Defibrillator
Procedure Report:
ICD IMPLANTATION REPORT
Date of Procedure: November 16, 2023
Primary Care Provider: Dr. Steven Reynolds
Primary stainless steel finisher: Dr. Mendez Todd
tool grinder operator external: Paul Reddy M.D.
PROCEDURES:
1. Right Heart Cath, 2. BiV ICD Implant
INDICATION FOR PROCEDURE:
He has demonstrated sustained symptomatic self terminating monomorphic ventricular tachycardia.
He has a known history of heart failure with reduced ejection fraction/cardiomyopathy felt to be noninfarct related. Most recent echocardiogram has found diminished LVEF now down to 30 to 35% with global hypokinesis. There is no wall motion
abnormality or significant valvular disease. Right ventricular size and function is noted to be normal.
He has a known history of frequent runs of nonsustained ventricular tachycardia. He underwent coronary angiography November 03, 2022 in part related to evaluation of frequent ventricular tachycardia at which time he was found to have nonobstructive
coronary artery disease and mildly reduced LVEF at 45% with moderate global hypokinesis that was more pronounced at the inferior and anterolateral gallegos.
Additionally he has left bundle branch morphology QRS with mildly widened QRS duration at 125 ms.
Implantation of cardiac resynchronization defibrillator has been requested.
She does meet secondary prevention indication for ICD and given his continued fall and LVEF despite guideline directed medical therapy and widened QRS complex, attempted cardiac resynchronization is also indicated.
Lidocaine with epi was used for local anesthesia. Central venous access was obtained via axillary venipuncture. An incision was made along the left chest and a pre-pectoral pocket was formed. Using a Seldinger technique and peel-away sheaths, the
pacing leads were placed under fluoroscopic guidance with ICD lead placed at the mid interventricular septum, right atrial lead placed at the right atrial appendage.
Fluoroscopy was used to determine likely anatomic site for left bundle branch pacing. The re3D C315 sheath was used to deliver the Medtronic 3830 Selectsecure pacing lead with the helix exposed just exposed from the sheath tip during continuous
monitoring when pacemapping the septum during gentle clockwise rotation to obtain a paced QRS morphology of a W pattern in lead V1. Once the suspected optimal site was identified, lead deployment was performed with several rapid rotations as paced
QRS morphology was intermittently monitored until a paced QRS complex in lead V1 demonstrated development of an R wave (QR).
Unipolar pacing impedance dropped by approximately 100 ohms suggesting it had reached the left ventricular subendocardial.
Stable VEgm injury current is present throughout lead position and at end of case.
Final unipolar pacing impedance is 900 Ohms
Unipolar pacing threshold (LBB lead tip to RV ICD lead coil) is stable at 1.75 V @ 0.4 ms.
The patient had pre-existing left bundle branch block at baseline.
Final conduction system paced QRS complex duration is 134 ms
LVAT is 69 ms and peak V5 -> peak V1 timing is 90 ms
Once testing (see below) showed adequate and stable function, the leads were secured using the suture sleeves. The pocket was liberally irrigated with antibiotic solution. The leads were connected to the generator header and the leads and
generator were placed within the pocket. Fluoroscopy confirmed stable lead position. The pocket was closed in the typical fashion.
Antibiotic pouch was used
FLUOROSCOPY:
Fluoroscopy was used to guide lead placement.
IMPLANTS:
ICD Medtronic [id number], SN [id number] , Left Pectoral
RA Medtronic 5076, SN [id number]
RV Medtronic [id number], SN [id number]
LBB Medtronic [id number], SN [id number]
DEVICE TESTING:
Sensing: RA 2.1, RV 8 mV, LBB 5 mV
Capture: RA 0.75 V @ 0.4 ms, RV 1 point V @ 0.4ms, LBB 1.75 V@ 0.4ms
Ohms: RA 560, RV 670, LV 670 (extended bi-pole LBB lead tip to RV coil)
FINAL PROGRAMMING:
Osman Pacing: MVP (max AV delay of 400 ms) 50-130 ppm
At present avoiding ventricular pacing and allowing intrinsic conduction but if QRS duration further prolongs her LV function further falls there can be an attempt at pacing resynchronization via the LBB lead.
Tachy parameters:
VF: 188 bpm, ATP X 1, ShockX 6
VT: 150 bpm, iATP, CV 10 J, CV 40 J X 4
COMPLICATIONS:
None
CONCLUSIONS:
- Recurrent sustained monomorphic ventricular tachycardia
- Successful implantation of cardiac resynchronization ICD
* During the case he did have several runs of sustained self terminating ventricular tachycardia. He also had sustained ventricular tachycardia terminating with antitachycardia pacing. With ventricular tachycardia he did become hypotensive with
systolic blood pressures of 65-70 mmHg.
Each episode of VT is wide left bundle inferior axis and rightward, QS in aVR and aVL consistent with ventricular outflow tract origin and concerning for LV summit given there is some degree of pattern break at lead V1 -> V2 (RS -> rS with
monophasic R in V3 where R in V3 is > 3 times the r in V2). However lead placement during ICD implant is modified to allow sterile access at implant site and precordial lead placement / transition may be affected.
RECOMMENDATIONS:
Continue amiodarone
If he continues to have sustained ventricular tachycardia after amiodarone loading, mapping and ablation would be neck step.
Guideline directed medical therapy for heart failure with reduced ejection fraction.
He is currently on Entresto, continue
He is currently on spironolactone, continue
With pacing support we can now increase dose of Toprol-XL which we will do.
Evaluate cost for SGLT2 inhibitor
Copy:
Dr. Steven Reynolds
Dr. Mendez Todd
--- NOTE | 2023-11-16 15:36 | W.PN.UPDATE ---
Update Note
Progress Note Update
Called to see patient for NSVT when attempting OOB to go to the bathroom, he felt dizzy during the episode. Check BMP and magnesium now. He is due for the next dose of amiodarone 200 mg TID now. He still needs his post-implant CXR too.
--- NOTE | 2023-11-16 15:59 | CM ---
Chart reviewed. Patient is independent of ADLS, lives with his grandson in a 1st floor apartment, daughter also lives close by, 0 DME. Patient is not current with VN and is not interested in VN. Plan is for the patient to return home. CM to
follow
[2023-11-16 16:08] LABS: Blood Urea Nitrogen 21 mg/dl (9-20); Calcium 8.9 mg/dl (8.4-10.2); Carbon Dioxide 21 mmol/L (22-30); Chloride 105 mmol/L (98-107); Estimated Creatinine Clearance 48 ml/min; Glucose 118 mg/dl (70-99); Magnesium 2.1 mg/dl (1.6-2.3); Potassium 4.6 mmol/L (3.5-5.1); Sodium 138 mmol/L (135-145); eGFR 55.88
[2023-11-16] MEDS: ANCEF 5 IV (17:41)
[2023-11-16] MEDS: FLUSH (NSS) 2 FLUSH IV (17:42)
--- NOTE | 2023-11-16 19:30 | PTCARENOTE ---
Pt w/ approx 3 mins of sustained VT at 1900. This RN and other staff in to see pt. Pt reports no CP, but stated his 'vision went blurry' & that he 'felt dizzy'. Pt on bedrest at the time. BP low at 85/73, recheck was 119/66. Had pt bear down &
cough repeatedly. Pacer pads placed on pt. Pt converted back to SR w/HR in the 70's-80's. Dr Mcguire notified & telemetry strip sent to Dr Mcguire. CT PA asked to see pt & call Dr Mcguire. CT PA CASSI Mustafa notified & in to see pt & pt's daughters. Plan of
care ongoing.
[2023-11-16] MEDS: HEPARIN 5000 UNITS SC (20:21)
[2023-11-16] MEDS: ULTRAM 50 MG PO (21:22)
[2023-11-16] MEDS: NEURONTIN 300 MG PO (22:56)
[2023-11-16] MEDS: PACERONE 400 MG PO (22:56)
[2023-11-16] MEDS: ZYRTEC 5 MG PO (22:57)
[2023-11-17] VITALS (14 sets, daily range): BP systolic 95–122; BP diastolic 54–91; BMI 30.1
[2023-11-17] MEDS: ANCEF 5 IV ×2 (01:02→22:35)
[2023-11-17] MEDS: ASPIR LOW (ENTERIC COATED) 81 MG PO (01:02)
[2023-11-17] MEDS: FLUSH (NSS) 2 FLUSH IV ×2 (01:03→22:36)
--- NOTE | 2023-11-17 03:06 | PTCARENOTE ---
Voiding clear betsey urine. Left chest wall ICD dressing dry and intact. Using O2 at 2 lpm via NC. Around 0055 he had a run of wide-complex tachycardia in the the 140's, lasting approximately 12 minutes, he was asymptomatic, were able to obtain an
EKG during the tachy rhythm. Ed Ramsey PAC aware, no orders at this time. Sleeping at intervals.
[2023-11-17 05:54] LABS: Hematocrit 43.5 % (39.0-52.0); Hemoglobin 14.6 g/dL (13.0-18.0); Mean Corp Hgb Conc. 33.6 g/dL (33.0-37.0); Mean Corpuscular Hgb 28.4 pg (27.0-31.0); Mean Corpuscular Volume 84.6 fL (80.0-94.0); Mean Platelet Volume 10.6 fL (7.4-10.4); Platelet Count 172 10^3/uL (130-400); Red Blood Cell Count 5.14 10^6/uL (4.70-6.10); Red Cell Dist. Width 14.5 % (11.5-14.5); White Blood Cell Count 8.5 10^3/uL (4.8-10.8)
[2023-11-17 06:04] LABS: Blood Urea Nitrogen 25 mg/dl (9-20); Calcium 8.7 mg/dl (8.4-10.2); Carbon Dioxide 21 mmol/L (22-30); Chloride 104 mmol/L (98-107); Estimated Creatinine Clearance 48 ml/min; Glucose 120 mg/dl (70-99); Magnesium 2.1 mg/dl (1.6-2.3); Potassium 4.8 mmol/L (3.5-5.1); Sodium 134 mmol/L (135-145); eGFR 55.88
--- NOTE | 2023-11-17 07:11 | W.PN.CARDCBS ---
Addendum entered and electronically signed by Paul Reddy MD 11/17/23 16:09:
Patient seen, interviewed and examined by me.
Well-appearing, no acute distress
Regular rate and rhythm with normal S1 and S2, no S3 no S4. There is a grade 1/6 apical holosystolic murmur and no rubs. PMI is normally placed.
Aquacel dressing is clean and dry at left chest
Lungs are clear to auscultation bilaterally without wheezes rales or rhonchi.
Abdomen soft nontender nondistended with normoactive bowel sounds
Extremities show trace pretibial edema bilaterally no clubbing or cyanosis.
Neurologic exam is grossly nonfocal.
Agree with advanced practice professionals assessment and plan as noted below.
Of note, interrogation of the newly placed device shows an increase in right ventricular pacing threshold. Evaluation of chest x-ray suggest that the lead has been pulled back slightly although there is adequate sensing at present. I discussed
this with the patient and his daughter and I recommended that we take him back to the laboratory for repositioning of the right ventricular defibrillator lead.
Additionally, we have increased amiodarone to 400 mg 3 times daily to treat his recurrent ventricular tachycardia which by electrogram is most consistent with outflow tract origin. The QRS complex is quite wide and at times precordial transition is
suggestive of possible epicardial/summit origin although endocardial origin is still possible. Plan will be to continue with antiarrhythmic drug therapy and at some point we can consider mapping and ablation.
Given that there is no clear etiology for his ventricular tachycardia and for his declining left ventricular systolic function, will check echocardiogram to assess for infiltrative disorder.
While it is generally recommended to the try to wait 6 weeks after implantation to obtain an MRI, MRI is obtained prior to 6 weeks can be done and done safely. After assessing risk versus benefit of proceeding with MRI and a device and lead system
that is less than 6 weeks old, I recommended that we proceed with cardiac MRI which can be performed tomorrow as overall I believe the risk to be very low of any MRI related complication.
Original Note:
Today's Communication / Plan
-
Device checked by me and patient with VT treated with ATP
Increased amiodarone to 400 mg TID
GDMT now includes Coreg, Entresto, spironolactone and Farxiga.
Impression / Plan
-
PCP: Steven Reynolds
Research And Evaluation Analyst: Dr. EDGAR Todd
Impression:
Presented with 11/12/2023 with intermittent chest pain, blurry vision and dizziness
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
Recent admission 09/2023 for recurrent diverticulitis
s/p robotic sigmoidectomy on 09/17/2023
Nonischemic cardiomyopathy, EF 30-35% by echo 11/13/23
Nonobstructive coronary artery disease by cath 11/03/22
Hypertension
Hyperlipidemia
PVCs
Former smoker
COPD
Obstructive sleep apnea, CPAP intolerant
Nuclear Sestamibi 10/30/22. Mild to moderate-sized, mid intensity defect in the basal, mid, inferior and apical segments. Summed rest score was 4.
Cardiac cath 11/03/2022:�LM: NL; LAD: LI, A 1Ring Omni wire was advanced to the distal LAD and the iFR serially measured at/above the ischemic threshold. RAMUS:LI. LCX:LI. RCA: LI.� LVG:Mildly reduced LVEF estimated 45% with moderate global
hypokinesis that is more pronounced in the inferior and anterolateral gallegos
Echo 10/30/22: EF 40-45%,� mild concentric LVH with inferior, anteroseptal, and focal apical hypokinesis. Thickened mitral leaflets w/ trace MR. nl LA. trace AR. nl RV. nl RA. aortic root is 4cm. Similar to December 2021.
Echo 09/16/23: EF 40 to 45%, mild global hypokinesis, stage I diastolic dysfunction, mild MR, trace TR, mildly dilated aortic root at 4.0 cm.
Echo 11/13/23: EF 30-35%, global hypokinesis, mild LVH, trace MR, aortic valve grossly normal, right atrium normal left atrium mildly dilated, RV normal, trace TR
Plan:
-Overnight events reviewed. [facility] express transmission performed by ks 11/17/23 AM. Patient had sustained VT treated with ATP. Will increase amiodarone to 400 mg TID starting 11/17/23 AM. Patient has received a 3.8 gram load as of 11/17/23.
-Potassium 4.8 and magnesium 2.1 on 11/17/23.
-Outpatient dose of Toprol XL 25 mg BID was decreased to 25 mg daily this admission. Will increase back to Toprol XL 25 mg BID.
-If patient continues with VT options include adding additional AAD or consideration for VT ablation.
-EF 30-35% by echo 11/13/23. GDMT includes Toprol XL as noted and outpatient dose of lisinopril was changed to Entresto 24/26 mg BID and his co-pay is only $19/month.
-New to spironolactone 12.5 mg daily this admission.
-Added Farxiga 10 mg daily 11/17/23.
Progress Note - Research And Evaluation Analyst
Subjective
Date of Service: November 17, 2023
He gets lightheaded with VT
Objective
Labs:
11/17/23 05:20
11/17/23 05:20
Labs
Hgb 14.6 g/dL (13.0-18.0) 11/17/23 05:20
Hct 43.5 % (39.0-52.0) 11/17/23 05:20
Plt Count 172 10^3/uL (130-400) 11/17/23 05:20
PT 13.7 Sec (11.4-14.6) 11/12/23 21:49
INR 1.05 11/12/23 21:49
APTT 32.4 Sec (23.4-35.0) 11/12/23 21:49
Sodium 134 mmol/L (135-145) L 11/17/23 05:20
Potassium 4.8 mmol/L (3.5-5.1) 11/17/23 05:20
BUN 25 mg/dl (9-20) H 11/17/23 05:20
Creatinine 1.3 mg/dL (0.7-1.3) 11/17/23 05:20
Glucose 120 mg/dl (70-99) H 11/17/23 05:20
Vital Signs and I&O:
Vital Signs
Temp Pulse Resp BP Pulse Ox
98.4 F 63 18 106/60 97
11/17/23 04:58 11/17/23 04:57 11/17/23 04:58 11/17/23 04:57 11/17/23 04:58
Vital Signs
Temp Pulse Resp BP Pulse Ox
98.4 F 63 18 106/60 97
11/17/23 04:58 11/17/23 04:57 11/17/23 04:58 11/17/23 04:57 11/17/23 04:58
Intake & Output
11/15/23 11/16/23 11/17/23 11/18/23
06:59 06:59 06:59 06:59
Intake Total 490 / 490 660 / 660
Output Total 840 / 840
Balance 490 / 490 -180 / -180
Physical Exam
Physical Exam
GEN: NAD. AAOx3
HEENT: EOMI, MMM
LUNGS: CTA B/L without rales
CV: Reg, left ACW implant site without hematoma or ecchymosis
ABD: soft, BS+
EXT: No edema B/L
NEURO: Gross non-focal
SKIN: No rash
[2023-11-17] MEDS: SYMBICORT 160/4.5 MCG INHALER 2 PUFF INH ×2 (08:51→20:35)
[2023-11-17] MEDS: PACERONE 400 MG PO ×3 (09:11→22:37)
[2023-11-17] MEDS: TYLENOL 650 MG PO (09:12)
[2023-11-17] MEDS: ROBITUSSIN 200 MG PO ×2 (09:15→19:38)
[2023-11-17] MEDS: HEPARIN 5000 UNITS SC ×2 (09:15→19:39)
[2023-11-17] MEDS: LIPITOR 40 MG PO (09:15)
[2023-11-17] MEDS: PROTONIX 40 MG PO (09:15)
[2023-11-17] MEDS: FARXIGA 10 MG PO (09:15)
[2023-11-17] MEDS: ENTRESTO 24 MG/26 MG 1 TAB PO ×2 (09:16→19:38)
[2023-11-17] MEDS: TOPROL XL 25 MG PO (09:16)
[2023-11-17] MEDS: ALDACTONE 12.5 MG PO (09:17)
--- NOTE | 2023-11-17 10:39 | W.PN.HOSP.TC ---
Addendum entered and electronically signed by Broderick Gonzáles MD 11/19/23 14:49:
Correction, lisinopril has been replaced by Entresto
Original Note:
Today's Communication/Plan
-
see bold
Assessment / Plan
Assessment / Plan
# Recurrent symptomatic nonsustained ventricular tachycardia
-EKG shows sinus rhythm with first-degree AV block with PACs, left bundle branch block
-Status post AICD 11/16, continue amiodarone and metoprolol dose adjustments as per cardiology
-Cardiology added spironolactone and Farxiga
-Hold citalopram to avoid QT prolongation, continue aspirin
-Patient is independent�no PT needed
-Discharge when cleared by cardiology
Chronic HFrEF/nonischemic cardiomyopathy
-Recent echo shows 40 to 45% EF
-Continue metoprolol
Essential hypertension
-Continue lisinopril
Area of pain in left medial hallux evaluated
-Currently nothing to suggest infection, but small spur from nail is pressing on medial nail bed
-Will need to follow up with Podiatry for intervention on the nail, pt and dtr informed
Orthostatic hypotension
Hyperlipidemia
-Continue statin
COPD
Obstructive sleep apnea
-Noncompliant with CPAP
Recurrent diverticulitis status post sigmoidectomy
Pt states currently asymptomatic
Hx of Cigarette use in past
currently rare Cigars only
Obesity
GERD
-Continue Protonix
DVT prophylaxis�subcu heparin
Full code
Updated daughter at bedside 11/16
Physical Exam
General: No acute distress
HEENT: Normocephalic, Atraumatic, EOMI, MMM
Respiratory: Clear to Auscultation bilaterally
Cardiac: Normal S1/S2, tachycardic rate and Rhythm
Chest Wall: AICD dressing in place
Chest wall: Dressing over ICD incision
GI: Soft, Nontender, Nondistended, Normal Bowel Sounds
Anticipated Discharge: Within 24 hours
Subjective/Interval History
-
Date of Service: November 17, 2023
Overnight events noted. Patient has sustained V. tach treated with ATP.
Objective Data
-
Labs:
Laboratory Results
11/17/23
05:20
WBC 8.5
Hgb 14.6
Hct 43.5
Plt Count 172
Sodium 134 L
Potassium 4.8
Chloride 104
Carbon Dioxide 21 L
BUN 25 H
Creatinine 1.3
Glucose 120 H
Calcium 8.7
Vital Signs:
Vital Signs
Temp Pulse Resp BP Pulse Ox
97.7 F 75 14 109/65 92
11/17/23 08:00 11/17/23 09:16 11/17/23 08:55 11/17/23 09:16 11/17/23 08:00
I&O
11/16/23 11/17/23 11/18/23
06:59 06:59 06:59
Intake Total 490 / 490 660 / 660
Output Total 840 / 840
Balance 490 / 490 -180 / -180
--- NOTE | 2023-11-17 10:41 | CM ---
Chart reviewed. Patient is independent of ADLS, lives in a 1st floor apartment with his grandson and his daughter also lives close by, 0 DME. Patient currently with no discharge needs. CM to follow
[2023-11-17] MEDS: PACERONE PO (10:55)
--- NOTE | 2023-11-17 12:39 | CM ---
Pricing on Farxiga 10mg under the patient's PP is $19.35 for a 30 day supply. I will place a free 30 day coupon in the patient's red discharge folder
--- NOTE | 2023-11-17 17:11 | ITS.CL.ICD ---
Vessel Specialist - ICD
Implantable Cardioverter Defibrillator
Procedure Report:
ICD IMPLANTATION REPORT
Date of Procedure: November 17, 2023
Primary Care Provider: Dr. Steven Reynolds
Primary central scheduler: Dr. Mendez Todd
high lift operator: Paul Reddy M.D.
PROCEDURES:
Right ventricular pacing/ICD lead revision
INDICATION FOR PROCEDURE:
He underwent cardiac resynchronization ICD implantation yesterday November 16, 2023. Routine interrogation of his device this morning finds elevated capture threshold for the right ventricular/ICD lead. Evaluation of imaging finds that the lead
seems to have been withdrawn somewhat from its initial implantation position.
Conscious sedation was provided and local anesthesia was provided at the ICD site. An incision was made over the previous incision and the ICD and leads were dissected from the pocket. The right ventricular/ICD lead was identified and
from the header. Its suture sleeve was then identified and the sutures were from the suture sleeve freeing up the lead. Under fluoroscopy the active-fixation was withdrawn. Using a stylette, the ICD lead was positioned to a new site,
more basal septal or active-fixation was applied and excellent pacing and sensing thresholds were obtained. There is stable injury current.
The lead was fixated to the pectoral fascia using the suture sleeve. The pocket was irrigated with antibiotic solution. A lead was reattached to the ICD header. The ICD and leads were repositioned within the pocket and the ICD was tethered to the
pectoral fascia with suture. Fluoroscopic imaging continues to demonstrate stable lead position. Interrogation found stable lead function.
The pocket was then closed in a typical fashion.
Device and leads:
ICD� Medtronic [id number], SN [id number] , Left Pectoral (implanted November 16, 2023)
RA� Medtronic 5076, SN [id number] (implanted November 16, 2023)
RV Medtronic [id number], SN [id number] (Repositioned November 17, 2023)
LBB� Medtronic [id number], SN [id number] (implanted November 16, 2023)
� � � � � � �
DEVICE TESTING: � � � � �
Sensing:�� RV 19 mV� � � � � � �
Capture:� RV 1 V @ 0.4ms � � � �
Ohms:� � � RV 532
FINAL PROGRAMMING:
��Osman Pacing:
Reprogrammed from MVP to DDDR 50- 130
Tachy parameters:
� � � � � VF: 188 bpm, ATP X 1, Shocks
VT: 150 bpm, iATP, CV 10 J, CV 40 J X 4
� � � � � � � � � � � � � � � � � � � � � � �
COMPLICATIONS:
None
CONCLUSIONS:
- Repositioning of dislodged right ventricular ICD lead
RECOMMENDATIONS:
Continue amiodarone
Guideline directed medical therapy for heart failure with reduced ejection fraction.
Cardiac MRI tomorrow.
�
�
Copy:
Dr. Steven Reynolds
Dr. Mendez Todd
--- NOTE | 2023-11-17 17:39 | PTCARENOTE ---
Received pt post lead revision. Left ACW w/ aquacel dressing w/ gauze dressing intact. VSS. Pt denies any chest discomfort. Will monitor.
[2023-11-17] MEDS: ULTRAM 50 MG PO (19:36)
--- NOTE | 2023-11-17 21:56 | PTCARENOTE ---
Medicated with ultram for ICD site pain with relief. Monitor shows V-Paced and occasional AV pacing in the 60's. Sleeping at present.
[2023-11-17] MEDS: ZYRTEC 5 MG PO (22:37)
[2023-11-17] MEDS: NEURONTIN 300 MG PO (22:39)
[2023-11-18] VITALS (7 sets, daily range): BP systolic 103–121; BP diastolic 63–73
[2023-11-18 05:20] LABS: Hematocrit 43.6 % (39.0-52.0); Hemoglobin 14.9 g/dL (13.0-18.0); Mean Corp Hgb Conc. 34.2 g/dL (33.0-37.0); Mean Corpuscular Hgb 28.5 pg (27.0-31.0); Mean Corpuscular Volume 83.5 fL (80.0-94.0); Mean Platelet Volume 10.9 fL (7.4-10.4); Platelet Count 143 10^3/uL (130-400); Red Blood Cell Count 5.22 10^6/uL (4.70-6.10); Red Cell Dist. Width 14.5 % (11.5-14.5); White Blood Cell Count 8.1 10^3/uL (4.8-10.8)
[2023-11-18 05:36] LABS: Blood Urea Nitrogen 24 mg/dl (9-20); Calcium 8.5 mg/dl (8.4-10.2); Carbon Dioxide 21 mmol/L (22-30); Chloride 106 mmol/L (98-107); Estimated Creatinine Clearance 49 ml/min; Glucose 102 mg/dl (70-99); Sodium 133 mmol/L (135-145); eGFR 55.88
[2023-11-18] MEDS: FLUSH (NSS) 2 FLUSH IV (05:37)
[2023-11-18] MEDS: ANCEF 5 IV (05:37)
[2023-11-18 05:42] LABS: Potassium 4.7 mmol/L (3.5-5.1)
[2023-11-18] MEDS: SYMBICORT 160/4.5 MCG INHALER 2 PUFF INH ×2 (07:22→19:54)
[2023-11-18] MEDS: ROBITUSSIN 200 MG PO ×2 (08:37→20:01)
[2023-11-18] MEDS: LIPITOR 40 MG PO (08:38)
[2023-11-18] MEDS: ALDACTONE 12.5 MG PO (08:38)
[2023-11-18] MEDS: HEPARIN 5000 UNITS SC ×2 (08:38→20:01)
[2023-11-18] MEDS: PROTONIX 40 MG PO (08:39)
[2023-11-18] MEDS: PACERONE 400 MG PO ×3 (08:39→22:53)
[2023-11-18] MEDS: ENTRESTO 24 MG/26 MG 1 TAB PO ×2 (08:39→20:01)
[2023-11-18] MEDS: FARXIGA 10 MG PO (08:39)
[2023-11-18] MEDS: TOPROL XL 25 MG PO (08:46)
--- NOTE | 2023-11-18 09:06 | W.PN.HOSP.TC ---
Addendum entered and electronically signed by Broderick Gonzáles MD 11/19/23 14:48:
Correction, lisinopril has been replaced by Entresto
Original Note:
Today's Communication/Plan
-
see bold
Assessment / Plan
Assessment / Plan
# Recurrent symptomatic nonsustained ventricular tachycardia
-EKG shows sinus rhythm with first-degree AV block with PACs, left bundle branch block
-Status post AICD 11/16, continue amiodarone and metoprolol dose adjustments as per cardiology
-Cardiology added spironolactone and Farxiga, awaiting cardiac MRI
-Hold citalopram to avoid QT prolongation, continue aspirin
-Patient is independent�no PT needed
-Discharge when cleared by cardiology
Chronic HFrEF/nonischemic cardiomyopathy
-Recent echo shows 40 to 45% EF
-Continue metoprolol
Essential hypertension
-Continue lisinopril
Area of pain in left medial hallux evaluated
-Currently nothing to suggest infection, but small spur from nail is pressing on medial nail bed
-Will need to follow up with Podiatry for intervention on the nail, pt and dtr informed
Orthostatic hypotension
Hyperlipidemia
-Continue statin
COPD
Obstructive sleep apnea
-Noncompliant with CPAP
Recurrent diverticulitis status post sigmoidectomy
Pt states currently asymptomatic
Hx of Cigarette use in past
currently rare Cigars only
Obesity
GERD
-Continue Protonix
DVT prophylaxis�subcu heparin
Full code
Updated daughter at bedside 11/16
Physical Exam
General: No acute distress
HEENT: Normocephalic, Atraumatic, EOMI, MMM
Respiratory: Clear to Auscultation bilaterally
Cardiac: Normal S1/S2, tachycardic rate and Rhythm
Chest Wall: AICD dressing in place
Chest wall: Dressing over ICD incision
GI: Soft, Nontender, Nondistended, Normal Bowel Sounds
Anticipated Discharge: Within 24 hours
Subjective/Interval History
-
Date of Service: November 18, 2023
Denies CP/SOB/LH.
Objective Data
-
Labs:
Laboratory Results
11/18/23
05:10
WBC 8.1
Hgb 14.9
Hct 43.6
Plt Count 143
Sodium 133 L
Potassium 4.7
Chloride 106
Carbon Dioxide 21 L
BUN 24 H
Creatinine 1.3
Glucose 102 H
Calcium 8.5
Vital Signs:
Vital Signs
Temp Pulse Resp BP Pulse Ox
97.9 F 82 16 114/73 93
11/18/23 06:58 11/18/23 09:00 11/18/23 07:24 11/18/23 08:46 11/18/23 07:24
I&O
11/17/23 11/18/23 11/19/23
06:59 06:59 06:59
Intake Total 660 / 660 650 / 650
Output Total 840 / 840
Balance -180 / -180 650 / 650
--- NOTE | 2023-11-18 09:31 | W.PN.CARDCBS ---
Addendum entered and electronically signed by Paul Reddy MD 11/19/23 12:13:
Patient seen, interviewed and examined by me.
Well-appearing, no acute distress
Regular rate and rhythm with normal S1 and S2, no S3 no S4. There is a grade 1/6 apical holosystolic murmur and no rubs. PMI is normally placed.
Lungs are clear to auscultation bilaterally without wheezes rales or rhonchi.
Abdomen soft nontender nondistended with normoactive bowel sounds
Extremities show trace pretibial edema bilaterally no clubbing or cyanosis.
Neurologic exam is grossly nonfocal.
Agree with advanced practice professionals assessment and plan as noted below.
Rhythm has stabilized on amiodarone.
Will plan to discharge on amiodarone 200 mg 3 times daily for 2 weeks, then 200 mg twice daily for 2 weeks, then 200 mg daily thereafter.
Eventually there can be consideration for cardiac MRI as an outpatient
He will keep his appointment with Dr. Todd for next week and I will plan to see him back in 6 to 8 weeks.
Original Note:
Today's Communication / Plan
-
Cont amiodarone loading upon discharge, will arrange
Cardiac MRI pending
Impression / Plan
-
PCP: Steven Reynolds
Finger Lift Operator: Dr. EDGAR Todd
Impression:
Presented with 11/12/2023 with intermittent chest pain, blurry vision and dizziness
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
RV lead revision 11/17/23
Recent admission 09/2023 for recurrent diverticulitis
s/p robotic sigmoidectomy on 09/17/2023
Nonischemic cardiomyopathy, EF 30-35% by echo 11/13/23
Nonobstructive coronary artery disease by cath 11/03/22
Hypertension
Hyperlipidemia
PVCs
Former smoker
COPD
Obstructive sleep apnea, CPAP intolerant
Nuclear Sestamibi 10/30/22. Mild to moderate-sized, mid intensity defect in the basal, mid, inferior and apical segments. Summed rest score was 4.
Cardiac cath 11/03/2022:�LM: NL; LAD: LI, A [place] Omni wire was advanced to the distal LAD and the iFR serially measured at/above the ischemic threshold. RAMUS:LI. LCX:LI. RCA: LI.� LVG:Mildly reduced LVEF estimated 45% with moderate global
hypokinesis that is more pronounced in the inferior and anterolateral gallegos
Echo 10/30/22: EF 40-45%,� mild concentric LVH with inferior, anteroseptal, and focal apical hypokinesis. Thickened mitral leaflets w/ trace MR. nl LA. trace AR. nl RV. nl RA. aortic root is 4cm. Similar to December 2021.
Echo 09/16/23: EF 40 to 45%, mild global hypokinesis, stage I diastolic dysfunction, mild MR, trace TR, mildly dilated aortic root at 4.0 cm.
Echo 11/13/23: EF 30-35%, global hypokinesis, mild LVH, trace MR, aortic valve grossly normal, right atrium normal left atrium mildly dilated, RV normal, trace TR
Plan:
-Uneventful night and patient overall feels better on 11/18/23. Ectopy burden decreased overnight.
-Outpatient dose of Toprol XL 25 mg BID has been resumed.
-Patient has received a 5.0 gram load as of 11/18/23 AM. Upon discharge to home will continue amiodarone 200 mg TID for 2 weeks then 200 mg BID for 2 weeks and then 200 mg daily thereafter.
-If patient continues with VT options include adding additional AAD or consideration for VT ablation.
-EF 30-35% by echo 11/13/23. GDMT includes Toprol XL as noted and outpatient dose of lisinopril was changed to Entresto mg BID and his co-pay is only $19/month.
-New to spironolactone 12.5 mg daily this admission.
-Added Farxiga 10 mg daily 11/17/23.
-Cardiac MRI scheduled for 11/18/23.
-Possible discharge to home 11/18/23
Progress Note - Finger Lift Operator
Subjective
Date of Service: November 18, 2023
He feels better today, uneventful night
Objective
Labs:
11/18/23 05:10
11/18/23 05:10
Labs
Hgb 14.9 g/dL (13.0-18.0) 11/18/23 05:10
Hct 43.6 % (39.0-52.0) 11/18/23 05:10
Plt Count 143 10^3/uL (130-400) 11/18/23 05:10
PT 13.7 Sec (11.4-14.6) 11/12/23 21:49
INR 1.05 11/12/23 21:49
APTT 32.4 Sec (23.4-35.0) 11/12/23 21:49
Sodium 133 mmol/L (135-145) L 11/18/23 05:10
Potassium 4.7 mmol/L (3.5-5.1) 11/18/23 05:10
BUN 24 mg/dl (9-20) H 11/18/23 05:10
Creatinine 1.3 mg/dL (0.7-1.3) 11/18/23 05:10
Glucose 102 mg/dl (70-99) H 11/18/23 05:10
Vital Signs and I&O:
Vital Signs
Temp Pulse Resp BP Pulse Ox
97.9 F 82 16 114/73 93
11/18/23 06:58 11/18/23 09:00 11/18/23 07:24 11/18/23 08:46 11/18/23 07:24
Vital Signs
Temp Pulse Resp BP Pulse Ox
97.9 F 82 16 114/73 93
11/18/23 06:58 11/18/23 09:00 11/18/23 07:24 11/18/23 08:46 11/18/23 07:24
Intake & Output
11/16/23 11/17/23 11/18/23 11/19/23
06:59 06:59 06:59 06:59
Intake Total 490 / 490 660 / 660 650 / 650
Output Total 840 / 840
Balance 490 / 490 -180 / -180 650 / 650
Physical Exam
Physical Exam
GEN: NAD. AAOx3
HEENT: EOMI, MMM
LUNGS: CTA B/L without rales
CV: Reg, left ACW implant site without hematoma or ecchymosis
ABD: soft, BS+
EXT: No edema B/L
NEURO: Gross non-focal
SKIN: No rash
--- NOTE | 2023-11-18 10:35 | PTCARENOTE ---
Pt accompanied by RN to MRI. VSS. Cardiac unable to be completed. Pt escorted back to his room. MD notified. Will monitor.
--- NOTE | 2023-11-18 21:59 | PTCARENOTE ---
Pt received start of shift, HR AV Paced 60s-70s. Reviewed activity restrictions with pt. Pt states understanding, requested arm immobilizer to be left on overnight in case he moves arm in sleep. Dressing CDI at pacemaker insertion site. Pt denies
any CP, SOB, or lightheadedness/dizziness at this time. Informed to notify RN if any changes, call simental within reach.
[2023-11-18] MEDS: ZYRTEC 5 MG PO (22:53)
[2023-11-18] MEDS: NEURONTIN 300 MG PO (22:56)
[2023-11-18] MEDS: ASPIR LOW (ENTERIC COATED) 81 MG PO (23:43)
[2023-11-19 03:30] VITALS: BP 107/60
[2023-11-19 06:00] VITALS: BMI 29.9
[2023-11-19 07:46] VITALS: BP 102/62
[2023-11-19] MEDS: ROBITUSSIN 200 MG PO (07:49)
[2023-11-19] MEDS: ENTRESTO 24 MG/26 MG 1 TAB PO (07:49)
[2023-11-19] MEDS: PACERONE 400 MG PO (07:49)
[2023-11-19] MEDS: FARXIGA 10 MG PO (07:50)
[2023-11-19] MEDS: PROTONIX 40 MG PO (07:50)
[2023-11-19] MEDS: TOPROL XL 25 MG PO (07:50)
[2023-11-19] MEDS: LIPITOR 40 MG PO (07:50)
[2023-11-19] MEDS: ALDACTONE 12.5 MG PO (07:51)
[2023-11-19] MEDS: HEPARIN 5000 UNITS SC (07:51)
[2023-11-19] MEDS: SYMBICORT 160/4.5 MCG INHALER 2 PUFF INH (08:27)
--- NOTE | 2023-11-19 08:51 | PTCARENOTE ---
Assumed care of pt from night RN. Pt received awake and alert, Ox3. VSS, CM shows 100% A/V pacing, POX 91% on RA. Left chest wall dsg remains CDI, immobilizer intact. Limb restrictions reviewed with pt. Pt denies any pain or discomfort at this
time.
--- NOTE | 2023-11-19 09:00 | W.PN.HOSP.TC ---
Addendum entered and electronically signed by Broderick Gonzáles MD 11/19/23 14:48:
Correction, lisinopril has been replaced by Entresto
Original Note:
Today's Communication/Plan
-
Cleared by cardiology for discharge today
Assessment / Plan
Assessment / Plan
# Recurrent symptomatic nonsustained ventricular tachycardia
-EKG shows sinus rhythm with first-degree AV block with PACs, left bundle branch block
-Status post AICD 11/16, continue amiodarone and metoprolol as per cardiology
-Cardiology added spironolactone and Farxiga, recommend outpatient cardiac MRI
-Hold citalopram to avoid QT prolongation, continue aspirin
-Patient is independent�no PT needed
-Cleared by cardiology for discharge today
Chronic HFrEF/nonischemic cardiomyopathy
-Recent echo shows 40 to 45% EF
-Continue metoprolol
Essential hypertension
-Continue lisinopril
Area of pain in left medial hallux evaluated
-Currently nothing to suggest infection, but small spur from nail is pressing on medial nail bed
-Will need to follow up with Podiatry for intervention on the nail, pt and dtr informed
Orthostatic hypotension
Hyperlipidemia
-Continue statin
COPD
Obstructive sleep apnea
-Noncompliant with CPAP
Recurrent diverticulitis status post sigmoidectomy
Pt states currently asymptomatic
Hx of Cigarette use in past
currently rare Cigars only
Obesity
GERD
-Continue Protonix
DVT prophylaxis�subcu heparin
Full code
Updated daughter at bedside 11/19
Physical Exam
General: No acute distress
HEENT: Normocephalic, Atraumatic, EOMI, MMM
Respiratory: Clear to Auscultation bilaterally
Cardiac: Normal S1/S2, tachycardic rate and Rhythm
Chest Wall: AICD dressing in place
Chest wall: Dressing over ICD incision
GI: Soft, Nontender, Nondistended, Normal Bowel Sounds
Anticipated Discharge: Today
Subjective/Interval History
-
Date of Service: November 19, 2023
No acute events overnight. Denies chest pain, shortness of breath, palpitations. Eager for discharge.
Objective Data
-
Vital Signs:
Vital Signs
Temp Pulse Resp BP Pulse Ox
98 F 60 16 102/62 91
11/19/23 07:48 11/19/23 08:27 11/19/23 08:27 11/19/23 07:46 11/19/23 08:43
I&O
11/18/23 11/19/23 11/20/23
06:59 06:59 06:59
Intake Total 1130 / 1130 480 / 480
Balance 1130 / 1130 480 / 480
--- NOTE | 2023-11-19 11:34 | CM ---
Chart reviewed. Patient is independent of ADLS, lives with his grandson in a 1st floor apartment, 0 WILVER, 0 DME. Patient with a supportive family who lives close by. Patient currently with no discharge needs. Plan is for the patient to return
home. CM to follow
--- NOTE | 2023-11-19 13:41 | W.PN.CARDCBS ---
Today's Communication / Plan
-
D/C to home today, will add meds to discharge instructions
Impression / Plan
-
PCP: Steven Reynolds
Human Resources Safety Manager: Dr. EDGAR Todd
Impression:
Presented with 11/12/2023 with intermittent chest pain, blurry vision and dizziness
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
RV lead revision 11/17/23
Recent admission 09/2023 for recurrent diverticulitis
s/p robotic sigmoidectomy on 09/17/2023
Nonischemic cardiomyopathy, EF 30-35% by echo 11/13/23
Nonobstructive coronary artery disease by cath 11/03/22
Hypertension
Hyperlipidemia
PVCs
Former smoker
COPD
Obstructive sleep apnea, CPAP intolerant
Nuclear Sestamibi 10/30/22. Mild to moderate-sized, mid intensity defect in the basal, mid, inferior and apical segments. Summed rest score was 4.
Cardiac cath 11/03/2022:�LM: NL; LAD: LI, A [place] Omni wire was advanced to the distal LAD and the iFR serially measured at/above the ischemic threshold. RAMUS:LI. LCX:LI. RCA: LI.� LVG:Mildly reduced LVEF estimated 45% with moderate global
hypokinesis that is more pronounced in the inferior and anterolateral gallegos
Echo 10/30/22: EF 40-45%,� mild concentric LVH with inferior, anteroseptal, and focal apical hypokinesis. Thickened mitral leaflets w/ trace MR. nl LA. trace AR. nl RV. nl RA. aortic root is 4cm. Similar to December 2021.
Echo 09/16/23: EF 40 to 45%, mild global hypokinesis, stage I diastolic dysfunction, mild MR, trace TR, mildly dilated aortic root at 4.0 cm.
Echo 11/13/23: EF 30-35%, global hypokinesis, mild LVH, trace MR, aortic valve grossly normal, right atrium normal left atrium mildly dilated, RV normal, trace TR
Plan:
-Patient continues to feel well and ectopy/NSVT burden has decreased dramatically.
-Patient has received a 6.4 gram load as of 11/19/23 AM. Upon discharge to home will continue amiodarone 200 mg TID for 2 weeks then 200 mg BID for 2 weeks and then 200 mg daily thereafter.
-Uneventful night and patient overall feels better on 11/18/23. Ectopy burden decreased overnight.
-EF 30-35% by echo 11/13/23. GDMT includes Toprol XL as noted and outpatient dose of lisinopril was changed to Entresto 24/26 mg BID and his co-pay is only $19/month.
-Outpatient dose of Toprol XL 25 mg BID has been resumed.
-New to spironolactone 12.5 mg daily this admission.
-Added Farxiga 10 mg daily 11/17/23.
-Cardiac MRI can be considered as an outpatient. Attempt at inpatient cardiac MRI on 11/18/23 was unsuccessful due to difficulty with gating images
-Reviewed limb restrictions and device follow up
-Talked with patient and his daughter 11/19/23 and reviewed medication changes one by one. Recommended a 64 oz daily fluid restriction, he is not on a diuretic and EF has dropped in the last 2 months.
-Discharge to home 11/18/23
Progress Note - Human Resources Safety Manager
Subjective
Date of Service: November 19, 2023
He feels well and wants to go home
Objective
Labs:
11/18/23 05:10
11/18/23 05:10
Labs
Hgb 14.9 g/dL (13.0-18.0) 11/18/23 05:10
Hct 43.6 % (39.0-52.0) 11/18/23 05:10
Plt Count 143 10^3/uL (130-400) 11/18/23 05:10
PT 13.7 Sec (11.4-14.6) 11/12/23 21:49
INR 1.05 11/12/23 21:49
APTT 32.4 Sec (23.4-35.0) 11/12/23 21:49
Sodium 133 mmol/L (135-145) L 11/18/23 05:10
Potassium 4.7 mmol/L (3.5-5.1) 11/18/23 05:10
BUN 24 mg/dl (9-20) H 11/18/23 05:10
Creatinine 1.3 mg/dL (0.7-1.3) 11/18/23 05:10
Glucose 102 mg/dl (70-99) H 11/18/23 05:10
Vital Signs and I&O:
Vital Signs
Temp Pulse Resp BP Pulse Ox
97.7 F 60 20 102/62 92
11/19/23 11:20 11/19/23 08:27 11/19/23 11:20 11/19/23 07:46 11/19/23 11:20
Vital Signs
Temp Pulse Resp BP Pulse Ox
97.7 F 60 20 102/62 92
11/19/23 11:20 11/19/23 08:27 11/19/23 11:20 11/19/23 07:46 11/19/23 11:20
Intake & Output
11/17/23 11/18/23 11/19/23 11/20/23
06:59 06:59 06:59 06:59
Intake Total 660 / 660 1130 / 1130 480 / 480
Output Total 840 / 840
Balance -180 / -180 1130 / 1130 480 / 480
Physical Exam
Physical Exam
GEN: NAD. AAOx3
HEENT: EOMI, MMM
LUNGS: CTA B/L without rales
CV: Reg, left ACW implant site without hematoma or ecchymosis
ABD: soft, BS+
EXT: No edema B/L
NEURO: Gross non-focal
SKIN: No rash
--- NOTE | 2023-11-19 14:52 | W.DCSUMMARY ---
Discharge Summary
Discharge Data
Date of Admission: 11/12/23
Date of Discharge: 11/19/23
-
Pending Results: No
Hospital Course
Discharge diagnosis:
Recurrent symptomatic nonsustained ventricular tachycardia
Chronic heart failure with reduced ejection fraction
Nonischemic cardiomyopathy
Essential hypertension
Left medial hallux pain
Orthostatic hypotension
Hyperlipidemia
Chronic obstructive pulmonary disease
Obstructive sleep apnea
Consults: Cardiology
Procedures:
11/16/2023 biventricular ICD placement
11/17/2023 RV lead revision
Hospital course:
78-year-old male with past medical history significant for nonobstructive coronary artery disease on cardiac catheterization October 2022, nonischemic cardiomyopathy with mildly reduced ejection fraction of 45%, hypertension, hyperlipidemia, former
smoker with COPD, obstructive sleep apnea with intolerance to CPAP and recurrent diverticulitis with recent robotic sigmoidectomy in September 2023 who presented to emergency department 11/12/2023 with intermittent chest pain radiating into neck,
associated with warmth sensation, dizziness and blurry vision. Patient was found to have recurrent symptomatic nonsustained ventricular tachycardia.
Patient was seen in conjunction with cardiology. He had biventricular ICD placement on 11/16/2023, with RV lead revision on 11/17/2023. Cardiology adjusted his medications. His lisinopril was replaced with Entresto. He was started on Farxiga and and
spironolactone. He was loaded with amiodarone. Cardiology recommends outpatient cardiac MRI.
During his hospitalization, he did complain of an area of pain in the left medial hallux, that appeared elevated. There were no signs or symptoms of infection, there is a small spur from the nail that is pressing on the medial nail bed. He needs
to follow-up with podiatry in the office for intervention.
Patient's symptoms resolved. He is medically stable and cleared by cardiology for discharge. Cardiology recommends amiodarone 200 mg TID for 2 weeks, then 200 mg BID for 2 weeks, and then 200 mg daily thereafter. He will also be discharged on
Farxiga, spironolactone, and Toprol-XL 25 mg twice daily. He needs to follow-up with his primary care doctor in 1 week, as well as cardiology.
Disposition: Home self care
Discharge planning: Required 36 minutes
Discharge Plan
-
Patient Disposition: Home (Routine Discharge)
Discharge Diagnosis/Procedures: Recurrent symptomatic nonsustained ventricular tachycardia status post biventricular ICD implant on 11/16, left ventricular lead revision on 11/17, hypertension, congestive heart failure, left medial hallux pain,
chronic obstructive pulmonary disease, obstructive sleep apnea
Condition: Good
Diet: Restrict fluids to 64 oz
Activity: Other activity
Driving Restrictions: No driving for 3 months.
Bathing Restrictions: OK to Shower
Other Services: Cardiac Rehab
Stop these medications:: STOP taking lisinopril
Activity Restrictions/Additional Instructions:
-Lisinopril was replaced with Entresto (sacubitril/.valsartan).
-Spironolactone is a new medication to help with heart failure.
-Farxiga is a new medication to help with heart failure and was originally designed as a diabetes medication, but has been proven to help improve heart function.
-Take amiodarone 200 mg 3 times a day (morning, noon and night) for 2 weeks (until 12/03/23) then reduce to 200 mg twice a day for 2 weeks (until 12/17/23) and then decrease to 200 mg once a day thereafter.
-Your QTc was prolonged, we recommend you stopping citalopram as this can worsen the QT prolongation.
-Follow up with Podiatry for intervention on your toenail.
-Follow-up with your primary care doctor in 1 week, and cardiology as directed
Stand Alone Forms: DC Inst - Implanted Device
Referrals:
[facility]. Cardiac Rehab [Outside] - 12/31/23 1:00 pm
(Cardiac Rehab Orientation appointment and� First Exercise appointment is on 12/31/23 at 1PM.
The Cardiac Rehab gym is located on the first floor of the [facility] [place].)
Steven Reynolds, [Family Provider] - in one week
Rand Contreras DPM [Active] - in two to three weeks
Mendez Todd MD [Active] - 11/24/23 2:20 pm (Cardiology follow-up and post device incision check appointment. The office is working on a follow up appt with Dr. Darrius Reddy.)
Prescriptions:
New
spironolactone 25 mg Tablet
12.5 mg PO DAILY Qty: 30 11RF
Entresto 24-26 mg Tablet
1 tab PO BID Qty: 60 11RF
dapagliflozin propanediol [Farxiga] 10 mg Tablet
10 mg PO DAILY Qty: 30 11RF
amiodarone 200 mg tablet
200 mg PO TID Qty: 42 0RF
amiodarone 200 mg tablet
200 mg PO BID Qty: 28 0RF
amiodarone 200 mg tablet
200 mg PO DAILY Qty: 30 11RF
Continued
atorvastatin [Lipitor] 40 mg Tablet
40 mg PO DAILY
levocetirizine [Xyzal] 5 mg Tablet
5 mg PO HS
budesonide-formoterol 160-4.5 mcg/actuation Hfa Aerosol Inhaler
2 puff inhalation R BID
aspirin 81 mg Tablet,Delayed Release (Dr/Ec)
81 mg PO Q48H
gabapentin 300 mg capsule
300 mg PO HS
metoprolol succinate [Toprol XL] 25 mg Tablet Extended Release 24 Hr
25 mg PO BID
Hold Instructions: until BP >140/90
pantoprazole 40 mg Tablet,Delayed Release (Dr/Ec)
40 mg PO DAILY 30 Days Qty: 30 0RF
guaifenesin 200 mg Tablet
200 mg PO BID
Discontinued
citalopram 10 mg Tablet
10 mg PO DAILY
lisinopril 10 mg Tablet
10 mg PO DAILY
Discharge Orders:
Discharge Patient (As Directed); Ordered 11/19/23
Ordered By: Broderick Gonzáles
Care Plan Goals
Care Plan Goals:
Problem: Readiness for enhanced knowledge related to diagnosis and treatment plan
Goal: Understand your diagnosis and treatment plan needs, including medications if applicable.
Instructions: Know your diagnosis, underlying causes and treatment plan options, including medications if applicable. Consult with your health care team to learn about your diagnosis and treatment plan, including medications if applicable.
Discharge Date and Time
Discharge Date/Time: 11/19/23 15:55
--- NOTE | 2023-11-19 15:52 | PTCARENOTE ---
All D/C info reviewed with pt and daughter, all questions answered. Pt D/C'd home with daughter.
== END 2023-11-19 15:55 | disposition home or self-care (01) | DRG 277 ==
LOC: IVU 23:06
PROVIDERS: Internal Medicine Cardiovascular Disease; Nurse Practitioner; Physician Assistant Medical; ADMITTING PHYSICIAN Hospitalist; ATTENDING PHYSICIAN Family Medicine; EMERGENCY PHYSICIAN Emergency Medicine; FAMILY PHYSICIAN Family Medicine; OTHER PHYSICIAN Internal Medicine Cardiovascular Disease
PROC: 4A023N6 Measurement of Cardiac Sampling and Pressure, Right Heart, Percutaneous Approach (ICD-10-PCS; 2023-11-16)
PROC: 02HK3KZ Insertion of Defibrillator Lead into Right Ventricle, Percutaneous Approach (ICD-10-PCS; 2023-11-16)
PROC: 3E0102A Introduction of Anti-Infective Envelope into Subcutaneous Tissue, Open Approach (ICD-10-PCS; 2023-11-16)
PROC: 02HL3KZ Insertion of Defibrillator Lead into Left Ventricle, Percutaneous Approach (ICD-10-PCS; 2023-11-16)
PROC: 02H63KZ Insertion of Defibrillator Lead into Right Atrium, Percutaneous Approach (ICD-10-PCS; 2023-11-16)
PROC: 0JH609Z Insertion of Cardiac Resynchronization Defibrillator Pulse Generator into Chest Subcutaneous Tissue and Fascia, Open Approach (ICD-10-PCS; 2023-11-16)
PROC: 02WA3MZ Revision of Cardiac Lead in Heart, Percutaneous Approach (ICD-10-PCS; 2023-11-17)
PROC: 4B02XTZ Measurement of Cardiac Defibrillator, External Approach (ICD-10-PCS; 2023-11-17)
DX: I47.29 Other ventricular tachycardia (principal); I42.8 Other cardiomyopathies; I50.22 Chronic systolic (congestive) heart failure; J98.11 Atelectasis; T82.120A Displacement of cardiac electrode, initial encounter; I44.7 Left bundle-branch block, unspecified; I44.0 Atrioventricular block, first degree; I49.3 Ventricular premature depolarization; I11.0 Hypertensive heart disease with heart failure; I95.1 Orthostatic hypotension; E78.00 Pure hypercholesterolemia, unspecified; J44.9 Chronic obstructive pulmonary disease, unspecified; G47.33 Obstructive sleep apnea (adult) (pediatric); M79.675 Pain in left toe(s); I25.10 Atherosclerotic heart disease of native coronary artery without angina pectoris; Y71.2 Prosthetic and other implants, materials and accessory cardiovascular devices associated with adverse incidents; K21.9 Gastro-esophageal reflux disease without esophagitis; F17.290 Nicotine dependence, other tobacco product, uncomplicated; E66.9 Obesity, unspecified; Z68.30 Body mass index [BMI] 30.0-30.9, adult; G31.84 Mild cognitive impairment of uncertain or unknown etiology; F32.A Depression, unspecified; G47.30 Sleep apnea, unspecified; F10.10 Alcohol abuse, uncomplicated
CPT/HCPCS: 33215; 33249; 71045; 80048; 80053; 83735; 83880; 84443; 84484; 85025; 85027; 85610; 85730; 93005; 93306; 93451; 94640; 96374; 99285; C1769; C1777; C1882; C1887; C1892; C1898

== ENCOUNTER → 2023-11-24 16:41 | Outpatient (REF) | payer OTHER, SELFPAY | LOC: RAD 16:41 | PROVIDERS: ATTENDING PHYSICIAN Internal Medicine Cardiovascular Disease; FAMILY PHYSICIAN Family Medicine | DX: M79.602 Pain in left arm (principal) | CPT/HCPCS: 93971 ==

== ENCOUNTER → 2023-12-15 12:04 | Outpatient (REF) | payer OTHER, SELFPAY ==
[2023-12-15 13:23] LABS: Blood Urea Nitrogen 29 mg/dl (9-20); Carbon Dioxide 18 mmol/L (22-30); Chloride 105 mmol/L (98-107); Glucose 132 mg/dl (70-99); Potassium 4.3 mmol/L (3.5-5.1); Sodium 137 mmol/L (135-145); eGFR 47.06
== END ==
LOC: REG 12:04
PROVIDERS: ATTENDING PHYSICIAN Internal Medicine Cardiovascular Disease
DX: I10 Essential (primary) hypertension (principal)
CPT/HCPCS: 36415; 80048

== ENCOUNTER 2023-12-31 16:11 | Outpatient (RCR) | payer OTHER, SELFPAY | END 2023-12-31 23:59 | disposition home or self-care (01) | LOC: CRHB 16:11 | PROVIDERS: ATTENDING PHYSICIAN Internal Medicine Cardiovascular Disease | DX: I50.22 Chronic systolic (congestive) heart failure (principal); Z95.810 Presence of automatic (implantable) cardiac defibrillator | CPT/HCPCS: G0422; G0423 ==

== ENCOUNTER 2024-01-29 17:27 | Outpatient (RCR) | payer OTHER, SELFPAY | END 2024-01-29 23:59 | disposition home or self-care (01) | LOC: CRHB 17:27 | PROVIDERS: ATTENDING PHYSICIAN Internal Medicine Cardiovascular Disease | DX: I50.20 Unspecified systolic (congestive) heart failure (principal); I50.22 Chronic systolic (congestive) heart failure (principal); Z95.810 Presence of automatic (implantable) cardiac defibrillator | CPT/HCPCS: G0422; G0423 ==

== ENCOUNTER 2024-02-22 18:20 | Outpatient (RCR) | payer OTHER, SELFPAY | END 2024-02-22 23:59 | disposition home or self-care (01) | LOC: CRHB 18:20 | PROVIDERS: ATTENDING PHYSICIAN Internal Medicine Cardiovascular Disease | DX: I50.22 Chronic systolic (congestive) heart failure (principal); M25.559 Pain in unspecified hip | CPT/HCPCS: G0422 ==

== ENCOUNTER 2024-02-26 18:51 | Observation (INO) | payer OTHER, SELFPAY ==
[2024-02-26] VITALS (10 sets, daily range): BP systolic 97–137; BP diastolic 53–74; PULSE 67–83; BMI 27.9; BMI 28.1
[2024-02-26 16:26] LABS: % Basophils 0.3 % (0-2); % Eosinophils 0.9 % (0-6); % Immature Granulocytes 0.5 % (0-0.5); % Lymphocytes 12.3 % (20.5-51.1); % Monocytes 8.1 % (1.7-9.3); % Neutrophils 77.9 % (42.2-75.2); Absolute Eosinophils 0.1 10^3/uL (0-0.7); Absolute Immature Granulocytes 0.1 10^3/uL (0-0.05); Absolute Lymphocytes 1.3 10^3/uL (1.2-3.4); Absolute Monocytes 0.8 10^3/uL (0.1-0.6); Absolute Neutrophils 7.9 10^3/uL (1.4-6.5); Hematocrit 49.1 % (39.0-52.0); Hemoglobin 16.8 g/dL (13.0-18.0); Mean Corp Hgb Conc. 34.2 g/dL (33.0-37.0); Mean Corpuscular Hgb 28.4 pg (27.0-31.0); Mean Corpuscular Volume 83.1 fL (80.0-94.0); Mean Platelet Volume 10.6 fL (7.4-10.4); Nucleated Red Blood Cells % 0 % (-); Platelet Count 146 10^3/uL (130-400); Red Blood Cell Count 5.91 10^6/uL (4.70-6.10); Red Cell Dist. Width 15.3 % (11.5-14.5); White Blood Cell Count 10.1 10^3/uL (4.8-10.8)
[2024-02-26 16:40] LABS: ALT (SGPT) 20 U/L (0-50); AST (SGOT) 25 U/L (17-59); Albumin 4.5 g/dl (3.5-5.0); Alkaline Phosphatase 100 U/L (38-126); Blood Urea Nitrogen 23 mg/dl (9-20); Calcium 9.8 mg/dl (8.4-10.2); Carbon Dioxide 18 mmol/L (22-30); Chloride 108 mmol/L (98-107); Glucose 103 mg/dl (70-99); Potassium 4.4 mmol/L (3.5-5.1); Sodium 140 mmol/L (135-145); Total Protein 7.2 g/dl (6.3-8.2); eGFR 47.06
[2024-02-26 16:41] LABS: Lipase 88 U/L (23-300)
[2024-02-26 16:48] LABS: NT-proBNP 236 pg/ml; Troponin I 0.015 ng/ml
--- NOTE | 2024-02-26 17:20 | ED.GENMED ---
History of Present Illness
General
Chief Complaint: Chest Pain
Source: patient, records and family
Exam Limitations: none
Time Seen by Provider: 02/26/24 16:31
Nursing documentation reviewed up to this point in time: agreed with
Travel History
Have you had any contact with someone who has COVID-19?: No
Do you have any symptoms of coronavirus? Fever > 100 degrees, chills, cough, shortness of breath, sore throat, loss of taste or smell, muscle aches, or headache?: No
History of Present Illness
History of Present Illness:
78-year-old male complex cardiac history on Entresto, AICD, congestive heart failure drinks once or twice a month, non-smoker he is retired had a pacemaker placed a month or 2 ago he has been driving the past week or so he feels fatigued, some
shortness of breath, some chest pain since last night, no syncope, no fevers his device was interrogated, apparently showed some extra fluid apparently did not tolerate diuretic earlier
Past History
Past History
ED Past Medical History: COPD, HTN and Hypercholesterolemia
ED Past Surgical History: Orthopedic; Negative Cardiac (cath 06/2013)
Social History
Tobacco: Smoker
Alcohol: Binge drinker
Drug: None
Personal:
Living: with family
Employment: Retired
Family History
Family History: Hypertension
Phy Exam
Physical Exam
Physical Exam:
Physical Exam
General: 78-year-old sitting upright looks short of breath
Neck: Slight JVD
Heart: Regular
Lungs: Faint crackles at the base
Abdomen: Nontender
Neuro: alert and oriented. no focal neurological deficits
Skin: no rash
Psychiatric: well kept. interactive and cooperative
Extremities: Trace edema
Scores
Heart Score for Chest Pain Patients
STEMI patient?: No
History: Slightly or Non-Suspicious
ECG: Nonspecific Repolarization
Age: >/= 65 years
Risk Factors: 1 or 2 Risk Factors
Troponin: </= Normal Limit
Heart Score for Chest Pain Patients: 4
Heart Score Risk: 20.3% MACE over next 6 weeks
Course
Orders/Labs/Results
Orders:
Orders
02/26/24 15:52
Electrocardiogram (*1) Urgent
Reason for Study: Chest Pain
02/26/24 15:53
EKG- Treatment ONCE
02/26/24 16:07
BNP [NT-proBNP] Urgent
Complete Blood Count/With Diff Urgent
Comprehensive Metabolic Panel Urgent
Free T4 Urgent
Lipase Urgent
TSH Reflex To Free T4 Urgent
Comment: ADD ON
Troponin I Urgent
02/26/24 16:57
CR Chest - 2 Views Urgent
Comment:
Reason For Exam: sob
02/26/24 16:58
Orthostatic VS- Treatment ONCE
02/26/24 17:28
Furosemide [Lasix] 40 mg IV NOW STA
02/26/24 18:28
Admit/Transfer Patient As Directed
Co-Sign Provider:
Level of Care: Observation services
Assign to:: Telemetry
Physician / Group: ian
Diagnosis: chest pressure
Reason for Telemetry: Arrhythmia
Date to Stop Telemetry: 02/29/24
Time to Stop Telemetry: 11:00
Code Status As Directed
Resuscitation Status: Full Code
02/26/24 18:31
Add On- LAB Urgent
Tests Added?: TSH with reflex free T4
02/26/24 18:36
Pantoprazole [Protonix] 40 mg PO NOW STA
02/26/24 19:00
Atorvastatin [Lipitor] 20 mg PO QPM
02/26/24 20:00
Sacubitril 24/Valsartan 26 [Entresto 24 mg/26 mg] 1 tab PO BID
02/27/24 08:00
Amiodarone [Pacerone] 200 mg PO DAILY
Dapagliflozin [Farxiga] 10 mg PO DAILY
Metoprolol Xl [Toprol Xl] 25 mg PO DAILY
Pantoprazole [Protonix] 40 mg PO DAILY
Spironolactone [Aldactone] 12.5 mg PO DAILY
02/29/24 11:00
DC Protocol for Telemetry ONCE
Abnormal Lab Results
02/26/24
16:07
RDW 15.3 H %
(11.5-14.5)
MPV 10.6 H fL
(7.4-10.4)
Abs Immat Gran (auto) 0.1 H 10^3/uL
(0-0.05)
Absolute Neuts (auto) 7.9 H 10^3/uL
(1.4-6.5)
Absolute Monos (auto) 0.8 H 10^3/uL
(0.1-0.6)
Neutrophils % 77.9 H %
(42.2-75.2)
Lymphocytes % 12.3 L %
(20.5-51.1)
Chloride 108 H mmol/L
(98-107)
Carbon Dioxide 18 L mmol/L
(22-30)
BUN 23 H mg/dl
(9-20)
Creatinine 1.5 H mg/dL
(0.7-1.3)
Glucose 103 H mg/dl
(70-99)
TSH (Reflex) 10.50 H uIU/ml
(0.47-4.68)
02/26/24 16:07
02/26/24 16:07
Vital Signs
Initial and Last Documented VS:
Initial Vital Signs
Temp Pulse Resp BP Pulse Ox
98.2 F 86 16 132/74 93
02/26/24 16:00 02/26/24 16:00 02/26/24 16:00 02/26/24 16:00 02/26/24 16:00
Last Documented Vital Signs
Temp Pulse Resp BP Pulse Ox
98.2 F 71 13 119/67 94
02/26/24 16:00 02/26/24 19:00 02/26/24 19:00 02/26/24 19:00 02/26/24 19:00
MDM/Problems Addressed
Differential Diagnosis Includes:
Heart failure deconditioning electrolyte abnormality anemia UTI
MDM/Problems Addressed:
Fatigue shortness of breath
Chronic conditions affecting care: DM, HTN, Cardiomyopathy and Arrhythmia
Acute Exacerbation and/or Progression of Chronic Illness: DM, HTN and Arrhythmia
*Radiology
Radiology exam reviewed: preliminary read by ED provider
*Pulse Oximetry
Patient hypoxic: no
*EKG
Interpreted by ED Provider?: Yes
Interpretation: abnormal
Comparison EKG: no comparison EKG present
Heart Rate: 78
Rate: normal
Rhythm: ventricular paced
[place]: normal axis
Ischemia: non-specific ST changes
*Tutoring Manager Interpretation
Rate: normal
Interpretation: normal
Heart Rate: 78
Rhythm: ventricular paced
*Critical Care Note
Total Time (30-74mins, 75-104mins- exclusive of procedures): Not Applicable
ED Attending Note
-
Portions of this chart may have been created with voice recognition software.� Occasional wrong word or��sound alike� substitutions may have occurred due to the inherent limitations of voice recognition software.
Discharge Plan
Departure
Patient Disposition: Admit
Date of Disposition: 02/26/24
Time of Disposition: 17:28
Admit to: Telemetry
Presentation/result/management discussed w/ accepting MD/DO: Hospitalist
Patient with high blood pressure during this ER visit?: No
Discharge Problem:
Chronic systolic (congestive) heart failure, Nonischemic cardiomyopathy, KATE (obstructive sleep apnea), Hypertensive heart disease with heart failure
Interventions
Interventions:
*Risk Screen - Suicide Last Done: 02/26/24 17:32
*General Assessment Last Done: 02/26/24 16:00
*Neglect/Abuse Screening Last Done: 02/26/24 17:32
ED- Fall Risk Assessment Last Done: 02/26/24 17:32
*ED COVID-19 Vaccine History Last Done: 02/26/24 16:00
ED- Cardiac Assessment Last Done: 02/26/24 17:32
--- NOTE | 2024-02-26 17:46 | CON.CAR ---
Consultation
Consultation Request
Date/Time Consultation Requested: 02/26/2024 at 1700
Date/Time Consultation Performed: 02/26/2024 at 1800
Requesting Provider: Shiraz Carter MD
Performing Provider: Mendez Todd MD
Reason for Consultation: Chest discomfort and dyspnea
Medical History
-
History of Present Illness:
Patient with nonischemic cardiomyopathy status post ICD/DAIRY BACTERIOLOGIST November 2023 for sustained but self terminating monomorphic VT, without symptomatic heart failure, recently resumed driving and doing his own shopping, with increased salt intake. Former
alcohol use, now less. Onset of substernal dull discomfort last night with dyspnea and generalized fatigue. History is difficult to obtain. Daughters is at bedside. Amiodarone has been administered for approximately 3 months. Interrogation of
ICD showed drop in thoracic impedance potentially consistent with CHF, no arrhythmia
Past Medical History
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
irregularities of ramus with luminal irregularities of circumflex and RCA, EF 45% global hypokinesis), CHF (Nonischemic cardiomyopathy, EF 30-35% by echo prior to ICD implantation November 2023), COPD, HTN, Hypercholesterolemia and Other
(Diverticulitis, obstructive sleep apnea, possible mild cognitive impairments)
Past Surgical History: Bowel Resection (Robotic sigmoidectomy September 2023), Orthopedic (Right knee arthroscopy, foot and bilateral hand surgery) and Other (Herniorrhaphy)
Social History
Tobacco: Former Smoker
Drug: Former User (Probably was occasional beer at this time)
Personal:
Living: With Family (Lives with daughter Effie)
Employment: Retired
Family History
Family History: Reviewed & Not Pertinent
Allergies / Home Medications
Allergy/AdvReac Type Severity Reaction Status Date / Time
No Known Allergies Allergy Verified 02/26/24 16:03
�Medication �Instructions �Recorded �Confirmed �Type
aspirin 81 mg tablet,delayed 81 mg PO Q48H Blood clot 10/05/22 11/12/23 History
release prevention/tx
atorvastatin 40 mg tablet (Lipitor) 40 mg PO DAILY High cholesterol 10/05/22 11/12/23 History
budesonide-formoterol HFA 160 2 puff inhalation R BID 10/05/22 11/12/23 History
mcg-4.5 mcg/actuation aerosol Lung/breathing issues
inhaler
levocetirizine 5 mg tablet (Xyzal) 5 mg PO HS Allergies 10/05/22 11/12/23 History
gabapentin 300 mg capsule 300 mg PO HS Pain 11/03/22 11/12/23 History
metoprolol succinate 25 mg 25 mg PO BID Blood Pressure 08/21/23 11/12/23 History
tablet,extended release 24 hr
(Toprol XL)
pantoprazole 40 mg tablet,delayed 40 mg PO DAILY Gastrointestinal 08/27/23 11/12/23 Rx
release issue 30 days #30 tabs
guaifenesin 200 mg tablet 200 mg PO BID 11/12/23 11/12/23 History
amiodarone 200 mg tablet 200 mg PO BID Arrhythmia #28 tabs 11/19/23 Rx
amiodarone 200 mg tablet 200 mg PO DAILY Arrhythmia #30 tabs 11/19/23 Rx
amiodarone 200 mg tablet 200 mg PO TID Arrhythmia #42 tabs 11/19/23 Rx
dapagliflozin propanediol 10 mg 10 mg PO DAILY Heart Failure #30 11/19/23 Rx
tablet (Farxiga) tabs
sacubitril 24 mg-valsartan 26 mg 1 tab PO BID Heart Failure #60 tabs 11/19/23 Rx
tablet (Entresto)
spironolactone 25 mg tablet 12.5 mg (1/2 x 25 mg) PO DAILY 11/19/23 Rx
Heart Failure #30 tabs
Review of Systems
-
All other systems: Negative unless noted
Physical Exam
Vital Signs
Temp Pulse Resp BP Pulse Ox
36.8 C 72 14 110/66 94
02/26/24 16:00 02/26/24 17:30 02/26/24 17:30 02/26/24 17:28 02/26/24 17:32
Lab Results
02/26/24 16:07
02/26/24 16:07
Troponin I 0.015 ng/ml 02/26/24 16:07
Pmy-I-Dgdiutxiydw Pept 236 pg/ml 02/26/24 16:07
Physical Exam
General: Other (Appears fatigued, mildly uncomfortable)
HEENT: Normocephalic
Respiratory: Other (Decreased breath sounds throughout)
Cardiac: Regular Rhythm and Other (No murmur, JVD okay)
GI: Soft, Non Distended and Normal Bowel Sounds
Musculoskeletal: No Cyanosis and No Edema
Skin: Warm and Dry
Neuro: AO x 3 (Mildly irritable) and Nonfocal/Grossly Intact
Psych: Calm
Impression / Plan
-
Impression:
Chest discomfort, fatigue, dyspnea
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
s/p [employer] DAIRY BACTERIOLOGIST-D 11/16/23
RV lead revision 11/17/23Recent admission 09/2023 for recurrent diverticulitis
s/p robotic sigmoidectomy on 09/17/2023
Nonischemic cardiomyopathy, EF 30-35% by echo 11/13/23
Nonobstructive coronary artery disease by cath 11/03/22
Hypertension
Hyperlipidemia
PVCs
Former smoker
COPD
Obstructive sleep apnea, CPAP intolerant
Nuclear Sestamibi 10/30/22. Mild to moderate-sized, mid intensity defect in the basal, mid, inferior and apical segments. Summed rest score was 4.
Cardiac cath 11/03/2022:�LM: NL; LAD: LI, A [employer] Omni wire was advanced to the distal LAD and the iFR serially measured at/above the ischemic threshold. RAMUS:LI. LCX:LI. RCA: LI.� LVG:Mildly reduced LVEF estimated 45% with moderate global
hypokinesis that is more pronounced in the inferior and anterolateral gallegos
Echo 10/30/22: EF 40-45%,� mild concentric LVH with inferior, anteroseptal, and focal apical hypokinesis. Thickened mitral leaflets w/ trace MR. nl LA. trace AR. nl RV. nl RA. aortic root is 4cm. Similar to December 2021.
Echo 09/16/23: EF 40 to 45%, mild global hypokinesis, stage I diastolic dysfunction, mild MR, trace TR, mildly dilated aortic root at 4.0 cm.
Echo 11/13/23: EF 30-35%, global hypokinesis, mild LVH, trace MR, aortic valve grossly normal, right atrium normal left atrium mildly dilated, RV normal, trace TR
Plan:
Overall he looks reasonably well but symptoms of chest discomfort are of concern.
Will admit and trend troponin. If troponin is flat, could probably be released in a.m.
ICD interrogation suggested decreasing thoracic impedance consistent with heart failure, but not much evidence of heart failure on physical exam and proBNP is not elevated. Will observe for now.
Will also add PPI. At some point, patient said that symptoms were worse laying down and possibly pleuritic raising the possibility of pericarditis. We could consider colchicine as well.
Presuming troponin is flat, we could follow-up as outpatient to determine the need for follow-up stress testing, etc.
Data Reviewed
-
EKG: Tracing Personally Visualized and interpreted (AV paced, low voltage)
Radiology: Image Personally Visualized and interpreted (Minimal blunting costophrenic angles, mild vascular congestion, ICD)
Labs: Labs Reviewed by me (Hemoglobin 16.8, BUN and creatinine 23 and 1.5, proBNP 236, troponin 0.015)
Old Records: Reviewed
[2024-02-26] MEDS: LASIX 40 MG IV (18:22)
--- NOTE | 2024-02-26 18:31 | HPS.HSE ---
Family Physician
-
Family Physician: Steven Reynolds
Chief Complaint
-
chest pressure
History of Present Illness
78-year-old male past medical history of recurrent nonsustained ventricular tachycardia with ICD, HFrEF, nonischemic cardiomyopathy, essential hypertension, left medial hallux pain, KATE hypertension, hyperlipidemia, COPD, obstructive sleep apnea,
presenting with chest pressure since last night. He denies ever having pain like this before. He denies any dizziness or palpitations or shortness of breath or cough or fevers or chills. He denies any ICD shocks.
He denies any lower extremity pain. He has lost 25 pounds in the past few months.
He drinks alcohol occasionally. Denies smoking.
Medical History
Past Medical History
Past Medical History: Reports Other (recurrent nonsustained ventricular tachycardia with ICD, HFrEF, nonischemic cardiomyopathy, essential hypertension, left medial hallux pain, KATE hypertension, hyperlipidemia, COPD, obstructive sleep apnea)
Past Surgical History: Reports None
Social History
Tobacco: Non-smoker
Alcohol: Occasional
Drug: None
Family History
Family History: Not pertinent
Allergies / Home Medications
Allergies reflects when Allergies were last updated in [facility].
Home Medications with original date entered in [facility]
Allergy/Medication List:
Allergies
Allergy/AdvReac Type Severity Reaction Status Date / Time
No Known Allergies Allergy Verified 02/26/24 16:03
Home Medications
aspirin 81 mg tablet,delayed release 81 mg PO Q48H Blood clot prevention/tx 10/05/22
atorvastatin 40 mg tablet (Lipitor) 40 mg PO DAILY High cholesterol 10/05/22
budesonide-formoterol HFA 160 mcg-4.5 mcg/actuation aerosol inhaler 2 puff inhalation R BID Lung/breathing issues 10/05/22
levocetirizine 5 mg tablet (Xyzal) 5 mg PO HS Allergies 10/05/22
gabapentin 300 mg capsule 300 mg PO HS Pain 11/03/22
metoprolol succinate 25 mg tablet,extended release 24 hr (Toprol XL) 25 mg PO BID Blood Pressure 08/21/23
pantoprazole 40 mg tablet,delayed release 40 mg PO DAILY Gastrointestinal issue 30 days #30 tabs 08/27/23
guaifenesin 200 mg tablet 200 mg PO BID 11/12/23
amiodarone 200 mg tablet 200 mg PO BID Arrhythmia #28 tabs 11/19/23
amiodarone 200 mg tablet 200 mg PO DAILY Arrhythmia #30 tabs 11/19/23
amiodarone 200 mg tablet 200 mg PO TID Arrhythmia #42 tabs 11/19/23
dapagliflozin propanediol 10 mg tablet (Farxiga) 10 mg PO DAILY Heart Failure #30 tabs 11/19/23
sacubitril 24 mg-valsartan 26 mg tablet (Entresto) 1 tab PO BID Heart Failure #60 tabs 11/19/23
spironolactone 25 mg tablet 12.5 mg (1/2 x 25 mg) PO DAILY Heart Failure #30 tabs 11/19/23
Review of Systems
-
History Source: Patient
A 12 point ROS was completed and negative except as noted: Yes
Constitutional: Reports No Symptoms
EENT: Reports No Symptoms
Respiratory: Reports No Symptoms
Cardiac: Reports No Symptoms
Abdomen/GI: Reports No Symptoms
: Reports No Symptoms
Musculoskeletal: Reports No Symptoms
Skin: Reports No Symptoms
Neurological: Reports No Symptoms
Endocrine: Reports No Symptoms
Hematologic/Lymphatic: Reports No Symptoms
Psych: Reports No Symptoms
Physical Exam
Vital Signs
Vital Signs
Temp Pulse Resp BP Pulse Ox
98.2 F 68 14 99/53 90
02/26/24 16:00 02/26/24 18:22 02/26/24 18:15 02/26/24 18:22 02/26/24 18:15
Physical Exam
General: Well Developed, Well Nourished and No Apparent Distress
HEENT: NormoCephalic, Moist mucous membranes and Atraumatic
Respiratory: Clear
Cardiac: S1/S2 and Regular Rhythm; No Murmur or Rub
GI: Soft, Non Tender, Non Distended and Normal Bowel Sounds; No Organomegaly
Rectal: Deferred by Provider
Musculoskeletal: No Clubbing, No Cyanosis and No Edema
Skin: No Rash
Neuro: Nonfocal/grossly intact
Laboratory Results
-
02/26/24 16:07
02/26/24 16:07
Laboratory Results
Total Bilirubin 1.0 mg/dl (0.2-1.3) 02/26/24 16:07
AST 25 U/L (17-59) 02/26/24 16:07
ALT 20 U/L (0-50) 02/26/24 16:07
Alkaline Phosphatase 100 U/L (38-126) 02/26/24 16:07
Troponin I 0.015 ng/ml 02/26/24 16:07
Lipase 88 U/L (23-300) 02/26/24 16:07
Data Reviewed
-
Lab Data: Labs Reviewed by me
Old Records: Reviewed
Impression/Plan
-
IMPRESSION:
PLAN:
# Chest pressure
-EKG shows AV dual paced rhythm, no ischemic changes
-Troponin 0.015, continue to trend
#HFrEF/nonischemic cardiomyopathy
-Received 40 IV Lasix, although does not particularly appear volume overloaded to me
-Check I's and O's, daily weights
-Chest x-ray negative
-Cardiac BNP of 200
-Continue Entresto, spironolactone
-Continue aspirin, statin
-Continue dapagliflozin
Chronic kidney disease
-Creatinine of 1.5 compared to 1.3 at baseline
History of recurrent nonsustained ventricular tachycardia with ICD
-Needs ICD to be interrogated
-Continue amiodarone
Essential hypertension
-Continue metoprolol
Orthostatic hypotension
Hyperlipidemia
COPD
-Continue inhalers
Obstructive sleep apnea
-Noncompliant with CPAP
Recurrent diverticulitis status post sigmoidectomy
History of cigarette use in the past
Obesity
GERD
-Continue Protonix
History of left medial hallux pain
Full code
DVT prophylaxis�heparin
Cardiac diet
[2024-02-26] MEDS: PROTONIX 40 MG PO (18:43)
[2024-02-26] MEDS: LIPITOR 20 MG PO (19:38)
--- NOTE | 2024-02-26 20:02 | PTCARENOTE ---
Receive pt from ER. Pt alert oriented X3, calm and cooperative, in no distress. Pt assisted X1 to his bed. Pt oriented to the room, call simental within reach. Pt denies chest pain, but states 'it's still there'. Pt denies dizziness, or short of breath.
SpO2=94% on RA. VSS (T=97.5, HR=72, SZ=239/71, RR=18). Pt on V-paced on telemonitor. Will keep close monitoring of the pt.
[2024-02-26] MEDS: HEPARIN 5000 UNITS SC (20:39)
[2024-02-26] MEDS: ENTRESTO 24 MG/26 MG 1 TAB PO (20:39)
[2024-02-26 22:37] LABS: Troponin I 0.024 ng/ml
[2024-02-27 02:25] LABS: Troponin I 0.024 ng/ml
[2024-02-27 03:39] VITALS: BP 97/63
[2024-02-27 06:00] VITALS: BMI 27.9
[2024-02-27 07:00] VITALS: BP 121/63
[2024-02-27 07:47] LABS: % Basophils 0.6 % (0-2); % Eosinophils 2.6 % (0-6); % Immature Granulocytes 0.6 % (0-0.5); % Lymphocytes 16.8 % (20.5-51.1); % Monocytes 9.1 % (1.7-9.3); % Neutrophils 70.3 % (42.2-75.2); Absolute Basophils 0.1 10^3/uL (0-0.2); Absolute Eosinophils 0.2 10^3/uL (0-0.7); Absolute Immature Granulocytes 0.1 10^3/uL (0-0.05); Absolute Lymphocytes 1.5 10^3/uL (1.2-3.4); Absolute Monocytes 0.8 10^3/uL (0.1-0.6); Absolute Neutrophils 6.2 10^3/uL (1.4-6.5); Hematocrit 47.7 % (39.0-52.0); Hemoglobin 16.6 g/dL (13.0-18.0); Mean Corp Hgb Conc. 34.8 g/dL (33.0-37.0); Mean Corpuscular Hgb 28.8 pg (27.0-31.0); Mean Corpuscular Volume 82.7 fL (80.0-94.0); Mean Platelet Volume 10.3 fL (7.4-10.4); Nucleated Red Blood Cells % 0 % (-); Platelet Count 147 10^3/uL (130-400); Red Blood Cell Count 5.77 10^6/uL (4.70-6.10); Red Cell Dist. Width 15.8 % (11.5-14.5); White Blood Cell Count 8.9 10^3/uL (4.8-10.8)
--- NOTE | 2024-02-27 07:55 | W.PN.HOSP.TC ---
Today's Communication/Plan
-
PT eval. Cardiac monitoring. Cardiology reeval pending. Discharge once cleared by cardiology.
Assessment / Plan
Assessment / Plan
Physical Exam
General: Well Developed, Well Nourished and No Apparent Distress
HEENT: NormoCephalic, Moist mucous membranes and Atraumatic
Respiratory: Clear
Cardiac: S1/S2 and Regular Rhythm; No Murmur or Rub
GI: Soft, Non Tender, Non Distended and Normal Bowel Sounds; No Organomegaly
Rectal: Deferred by Provider
Musculoskeletal: No Clubbing, No Cyanosis and No Edema
Skin: No Rash
Neuro: Nonfocal/grossly intact
A/P:
# Chest pressure
-EKG shows AV dual paced rhythm, no ischemic changes
-Troponin 0.015, 0.024, 0.024, 0.019.
-Cardiology evaluated the patient yesterday and appreciated input
-Awaiting for cardiology reevaluation today
-Will ask PT eval for today as well
-Discharge planning once cleared by cardiology
#HFrEF/nonischemic cardiomyopathy
-Received 40 IV Lasix given in the ED yesterday. Not on diuretics at the moment. Appears euvolemic
-Check I's and O's, daily weights
-Chest x-ray negative
-Cardiac BNP of 200
-Continue Entresto, spironolactone
-Continue aspirin, statin
-Continue dapagliflozin
Chronic kidney disease
-Creatinine of 1.5 compared to 1.3 at baseline
History of recurrent nonsustained ventricular tachycardia with ICD
-Needs ICD to be interrogated
-Continue amiodarone
Essential hypertension
-Continue metoprolol
Orthostatic hypotension
Hyperlipidemia
COPD
-Continue inhalers
Obstructive sleep apnea
-Noncompliant with CPAP
Recurrent diverticulitis status post sigmoidectomy
History of cigarette use in the past
Obesity
GERD
-Continue Protonix
History of left medial hallux pain
Full code
DVT prophylaxis�heparin
Cardiac diet
Anticipated Discharge: Within 24 hours
Subjective/Interval History
-
Date of Service: February 27, 2024
Patient denies chest pain or shortness of breath today.
Objective Data
-
Labs:
Laboratory Results
02/27/24
07:30
WBC 8.9
Hgb 16.6
Hct 47.7
Plt Count 147
Sodium Pending
Potassium Pending
Chloride Pending
Carbon Dioxide Pending
BUN Pending
Creatinine Pending
Glucose Pending
Calcium Pending
Total Bilirubin Pending
AST Pending
ALT Pending
Alkaline Phosphatase Pending
Vital Signs:
Vital Signs
Temp Pulse Resp BP Pulse Ox
98.8 F 74 18 97/63 92
02/27/24 03:39 02/27/24 03:39 02/27/24 03:39 02/27/24 03:39 02/27/24 03:39
I&O
02/26/24 02/27/24 02/28/24
06:59 06:59 06:59
Intake Total 480 / 480
Output Total 1650 / 1650
Balance -1170 / -1170
[2024-02-27 08:18] LABS: Troponin I 0.019 ng/ml
[2024-02-27 08:41] LABS: ALT (SGPT) 19 U/L (0-50); AST (SGOT) 25 U/L (17-59); Albumin 4.4 g/dl (3.5-5.0); Alkaline Phosphatase 107 U/L (38-126); Blood Urea Nitrogen 29 mg/dl (9-20); Calcium 9.5 mg/dl (8.4-10.2); Carbon Dioxide 19 mmol/L (22-30); Chloride 105 mmol/L (98-107); Estimated Creatinine Clearance 39 ml/min; Glucose 114 mg/dl (70-99); Potassium 4.3 mmol/L (3.5-5.1); Sodium 138 mmol/L (135-145); Total Protein 6.9 g/dl (6.3-8.2); eGFR 47.06
[2024-02-27 09:45] VITALS: BP 115/70; BP 99/56; PULSE 71; PULSE 72
[2024-02-27] MEDS: PROTONIX 40 MG PO (09:47)
[2024-02-27] MEDS: ENTRESTO 24 MG/26 MG 1 TAB PO (09:47)
[2024-02-27] MEDS: ALDACTONE 12.5 MG PO (09:48)
[2024-02-27] MEDS: PACERONE 200 MG PO (09:48)
[2024-02-27] MEDS: TOPROL XL 25 MG PO (09:48)
[2024-02-27] MEDS: FARXIGA 10 MG PO (09:48)
[2024-02-27] MEDS: HEPARIN 5000 UNITS SC (09:48)
--- NOTE | 2024-02-27 10:35 | CM ---
Addendum entered by Tanja Tomlin 02/27/24 15:29:
OBS/MACARIO form completed and placed on the chart. CM updated patient daughter and family plan to come to transport patient home shortly.
Original Note:
Patient seen at bedside. Patient states that he lives with his grandson in a town home with first floor entrance and no steps. Patient stated that his PCP is Dr. Lenz and he uses the [facility] [address] in [place]. Patient asked for information
about POA documentation and was given the form with information. Patient plan to review with family. Patient IMM completed with admissions 02/25/25. CM will continue to follow for discharge planning needs.
Plan; home with family awaiting PT/OT assessment to confirm VN need
[2024-02-27 11:14] VITALS: BP 127/97
--- NOTE | 2024-02-27 14:35 | W.PN.CARDCBS ---
Today's Communication / Plan
-
Okay for discharge, see below
Impression / Plan
-
Impression:
Chest discomfort, fatigue, dyspnea
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
s/p [employer] HOME CONNECT LPN-D 11/16/23
RV lead revision 11/17/23Recent admission 09/2023 for recurrent diverticulitis
s/p robotic sigmoidectomy on 09/17/2023
Nonischemic cardiomyopathy, EF 30-35% by echo 11/13/23
Nonobstructive coronary artery disease by cath 11/03/22
Hypertension
Hyperlipidemia
PVCs
Former smoker
COPD
Obstructive sleep apnea, CPAP intolerant
Nuclear Sestamibi 10/30/22. Mild to moderate-sized, mid intensity defect in the basal, mid, inferior and apical segments. Summed rest score was 4.
Cardiac cath 11/03/2022:�LM: NL; LAD: LI, A Heavy Omni wire was advanced to the distal LAD and the iFR serially measured at/above the ischemic threshold. RAMUS:LI. LCX:LI. RCA: LI.� LVG:Mildly reduced LVEF estimated 45% with moderate global
hypokinesis that is more pronounced in the inferior and anterolateral gallegos
Echo 10/30/22: EF 40-45%,� mild concentric LVH with inferior, anteroseptal, and focal apical hypokinesis. Thickened mitral leaflets w/ trace MR. nl LA. trace AR. nl RV. nl RA. aortic root is 4cm. Similar to December 2021.
Echo 09/16/23: EF 40 to 45%, mild global hypokinesis, stage I diastolic dysfunction, mild MR, trace TR, mildly dilated aortic root at 4.0 cm.
Echo 11/13/23: EF 30-35%, global hypokinesis, mild LVH, trace MR, aortic valve grossly normal, right atrium normal left atrium mildly dilated, RV normal, trace TR
Plan:
He thinks his breathing is a little better having received furosemide yesterday.
His troponin is flat. In retrospect, he was doing heavy lifting on auto work and wonders if this was the cause of this chest discomfort. Dr. Archibald demonstrated tenderness to palpation over his chest today.
Okay for discharge from cardiac standpoint.
Since he has had a drop in thoracic impedance, and since he feels better having received IV Lasix, we will start furosemide 20 mg 3 times a week.
.
Overall he looks reasonably well but symptoms of chest discomfort are of concern.
Will admit and trend troponin. If troponin is flat, could probably be released in a.m.
ICD interrogation suggested decreasing thoracic impedance consistent with heart failure, but not much evidence of heart failure on physical exam and proBNP is not elevated. Will observe for now.
Will also add PPI. At some point, patient said that symptoms were worse laying down and possibly pleuritic raising the possibility of pericarditis. We could consider colchicine as well.
Presuming troponin is flat, we could follow-up as outpatient to determine the need for follow-up stress testing, etc. recommended cardiac
Medications at discharge:
Amiodarone 200 mg once daily
Aspirin 81 mg a day
Entresto 24-26 twice daily
Atorvastatin 40 mg a day
Metoprolol ER 25 mg once daily
Spironolactone 12.5 mg daily
Furosemide 20 mg on Wednesdays and Fridays
Okay for discharge from cardiac standpoint. He has follow-up with me on March 03.
Progress Note - [employer]
Subjective
Date of Service: February 27, 2024:
He feels his dyspnea is better. 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 Chest discomfort seems better.
PMH/PSH/SH/FH: Reviewed
Allergies: Reviewed
Outpatient medications reviewed
Current medications: Pantoprazole 40 mg a day, amiodarone 200 mg daily, metoprolol ER 25 mg a day, Entresto twice daily, dapagliflozin 10 mg a day, spironolactone 12.5 mg a day, atorvastatin, subcu heparin
ROS negative except as above
Intake and output -1.2 L, weight is 83.2 kg, which is substantially down,
127/97, pulse 68, respiratory rate 20,
Head neck exam unremarkable diminished breath sounds in bases regular rate and rhythm without murmurs, JVD okay, abdomen benign, extremities without edema pulses palpable
BUN and creatinine are 29 and 1.5, potassium is 4.3, troponin is flat at 0.019
Objective
Labs:
02/27/24 07:30
02/27/24 07:30
Labs
Hgb 16.6 g/dL (13.0-18.0) 02/27/24 07:30
Hct 47.7 % (39.0-52.0) 02/27/24 07:30
Plt Count 147 10^3/uL (130-400) 02/27/24 07:30
Sodium 138 mmol/L (135-145) 02/27/24 07:30
Potassium 4.3 mmol/L (3.5-5.1) 02/27/24 07:30
BUN 29 mg/dl (9-20) H 02/27/24 07:30
Creatinine 1.5 mg/dL (0.7-1.3) H 02/27/24 07:30
Glucose 114 mg/dl (70-99) H 02/27/24 07:30
Troponins
02/26/24 02/26/24 02/27/24
16:07 21:58 01:45
Troponin I 0.015 0.024 D 0.024
02/27/24
07:30
Troponin I 0.019
Vital Signs and I&O:
Vital Signs
Temp Pulse Resp BP Pulse Ox
36.9 C 68 20 127/97 93
02/27/24 11:14 02/27/24 11:14 02/27/24 11:14 02/27/24 11:14 02/27/24 11:14
Vital Signs
Temp Pulse Resp BP Pulse Ox
36.9 C 68 20 127/97 93
02/27/24 11:14 02/27/24 11:14 02/27/24 11:14 02/27/24 11:14 02/27/24 11:14
Intake & Output
02/25/24 02/26/24 02/27/24 02/28/24
07:59 07:59 07:59 07:59
Intake Total 480 / 480
Output Total 1650 / 1650
Balance -1170 / -1170
Physical Exam
Physical Exam
See above
[2024-02-27 15:19] VITALS: BP 114/68
--- NOTE | 2024-02-27 15:28 | W.DCSUMMARY ---
Discharge Summary
Discharge Data
Date of Admission: 02/26/24
Date of Discharge: 02/27/24
-
Pending Results: No
Hospital Course
Patient 78 years old male history of nonischemic cardiomyopathy status post ICD in the past with self terminating monomorphic VT, hypertension, COPD, hyperlipidemia, CAD, presented to the hospital with chest pain and dyspnea and generalized fatigue.
Cardiology consulted. Cardiac enzymes remained normal. Telemetry did not show any significant abnormalities. PT evaluated the patient and does not require rehab. He did receive IV Lasix upon admission but no further diuretics given. Overall he
might have had some degree of mild heart failure and recommendations to restart diuretics upon discharge and also regarding his chest pain cardiology felt that this was most likely musculoskeletal. Cardiology adjusted his medications since
medication reconciliation upon admission was inaccurate. We updated medications on his discharge list and we also called in for diuretics since this was the only new medication upon discharge, Lasix 20 mg Thursday and Thursday. He has
appropriate cardiology follow-up as outpatient. Otherwise, patient is chest pain-free and hemodynamically stable. Cardiology reached out to me and cleared him for discharge today.
Discharge duration: 32 minutes
Discharge Plan
-
Patient Disposition: Home (Routine Discharge)
Discharge Diagnosis/Procedures: Chest pain. History of coronary disease. History of chronic systolic congestive heart failure.
Diet: Low Cholesterol and Low Sodium
Activity: As tolerated
Driving Restrictions: As prior to admission
Blood Work: Please PCP to order CBC, BMP within 1 week
Referrals:
Steven Reynolds, [Family Provider] - in less than 1 week
Mendez Todd MD [Active] - in two to three weeks
Prescriptions:
New
amiodarone [Pacerone] 200 mg Tablet
200 mg PO DAILY Qty: 0 0RF
metoprolol succinate 25 mg Tablet Extended Release 24 Hr
25 mg PO DAILY Qty: 0 0RF
aspirin 81 mg capsule
81 mg PO DAILY Qty: 30 0RF
atorvastatin 40 mg tablet
40 mg PO HS Qty: 30 0RF
furosemide [Lasix] 20 mg tablet
20 mg PO Q OTHER DAY Qty: 30 0RF
Rx Instructions:
Thursday
Continued
levocetirizine [Xyzal] 5 mg Tablet
5 mg PO HS
budesonide-formoterol 160-4.5 mcg/actuation Hfa Aerosol Inhaler
2 puff inhalation R BID
gabapentin 300 mg capsule
300 mg PO HS
pantoprazole 40 mg Tablet,Delayed Release (Dr/Ec)
40 mg PO DAILY 30 Days Qty: 30 0RF
guaifenesin 200 mg Tablet
200 mg PO BID
spironolactone 25 mg Tablet
12.5 mg PO DAILY Qty: 30 11RF
Entresto 24-26 mg Tablet
1 tab PO BID Qty: 60 11RF
dapagliflozin propanediol [Farxiga] 10 mg Tablet
10 mg PO DAILY Qty: 30 11RF
Discontinued
atorvastatin [Lipitor] 40 mg Tablet
40 mg PO DAILY
aspirin 81 mg Tablet,Delayed Release (Dr/Ec)
81 mg PO Q48H
metoprolol succinate [Toprol XL] 25 mg Tablet Extended Release 24 Hr
25 mg PO BID
Hold Instructions: until BP >140/90
amiodarone 200 mg tablet
200 mg PO TID Qty: 42 0RF
amiodarone 200 mg tablet
200 mg PO BID Qty: 28 0RF
amiodarone 200 mg tablet
200 mg PO DAILY Qty: 30 11RF
Discharge Orders:
Discharge Patient (As Directed); Ordered 02/27/24
Ordered By: Nathen Harry
Discharge Date and Time
Discharge Date/Time: 02/27/24 17:13
Print Language: PASHTO
== END 2024-02-27 17:13 | disposition home or self-care (01) ==
LOC: 4 EAST ACU 18:51
PROVIDERS: Emergency Medicine; ADMITTING PHYSICIAN Hospitalist; ATTENDING PHYSICIAN Hospitalist; CONSULT PHYSICIAN Internal Medicine Cardiovascular Disease; EMERGENCY PHYSICIAN Emergency Medicine; FAMILY PHYSICIAN Family Medicine
DX: R07.89 Other chest pain (principal); E78.00 Pure hypercholesterolemia, unspecified; N18.9 Chronic kidney disease, unspecified; J44.9 Chronic obstructive pulmonary disease, unspecified; F17.200 Nicotine dependence, unspecified, uncomplicated; E11.22 Type 2 diabetes mellitus with diabetic chronic kidney disease; I50.22 Chronic systolic (congestive) heart failure; G47.33 Obstructive sleep apnea (adult) (pediatric); I42.8 Other cardiomyopathies; I13.0 Hypertensive heart and chronic kidney disease with heart failure and stage 1 through stage 4 chronic kidney disease, or unspecified chronic kidney disease; I47.29 Other ventricular tachycardia; I95.1 Orthostatic hypotension; I25.10 Atherosclerotic heart disease of native coronary artery without angina pectoris; E66.9 Obesity, unspecified; K21.9 Gastro-esophageal reflux disease without esophagitis; Z91.199 Patient's noncompliance with other medical treatment and regimen due to unspecified reason; Z82.49 Family history of ischemic heart disease and other diseases of the circulatory system; Z95.810 Presence of automatic (implantable) cardiac defibrillator; Z79.84 Long term (current) use of oral hypoglycemic drugs; Z90.49 Acquired absence of other specified parts of digestive tract; Z87.19 Personal history of other diseases of the digestive system; Z79.82 Long term (current) use of aspirin
CPT/HCPCS: 93284; 71046; 80053; 83690; 83880; 84439; 84443; 84484; 85025; 93005; 96374; 97161; 99285; G0378

== ENCOUNTER → 2024-03-14 10:31 | Outpatient (REF) | payer OTHER, SELFPAY | LOC: HWRCS 10:31 | PROVIDERS: ATTENDING PHYSICIAN Internal Medicine Cardiovascular Disease; FAMILY PHYSICIAN Family Medicine | DX: I42.8 Other cardiomyopathies (principal); I49.3 Ventricular premature depolarization | CPT/HCPCS: 93306 ==

== ENCOUNTER → 2024-03-16 11:26 | Outpatient (REF) | payer OTHER, SELFPAY ==
[2024-03-16 16:27] LABS: Blood Urea Nitrogen 26 mg/dl (9-20); Calcium 9.2 mg/dl (8.4-10.2); Carbon Dioxide 21 mmol/L (22-30); Chloride 102 mmol/L (98-107); Glucose 111 mg/dl (70-99); Potassium 4.2 mmol/L (3.5-5.1); Sodium 135 mmol/L (135-145); eGFR 51.13
[2024-03-16 16:51] LABS: NT-proBNP 177 pg/ml
== END ==
LOC: HWLAB 11:26
PROVIDERS: ATTENDING PHYSICIAN Internal Medicine Cardiovascular Disease; FAMILY PHYSICIAN Family Medicine
DX: I10 Essential (primary) hypertension (principal); R06.02 Shortness of breath; N18.30 Chronic kidney disease, stage 3 unspecified
CPT/HCPCS: 36415; 80048; 83880

== ENCOUNTER 2024-03-27 16:20 | Emergency (ER) | payer OTHER, SELFPAY ==
[2024-03-27 16:25] VITALS: BP 109/65
[2024-03-27] MEDS: NSS 500 IV (17:44)
[2024-03-27] MEDS: MORPHINE SULFATE 2 MG IV (17:45)
[2024-03-27] MEDS: ZOFRAN 4 MG IV (17:45)
[2024-03-27 18:00] VITALS: BP 116/68
[2024-03-27 18:01] LABS: % Basophils 0.3 % (0-2); % Eosinophils 1.8 % (0-6); % Immature Granulocytes 0.7 % (0-0.5); % Lymphocytes 9.5 % (20.5-51.1); % Monocytes 10.7 % (1.7-9.3); Absolute Eosinophils 0.2 10^3/uL (0-0.7); Absolute Immature Granulocytes 0.1 10^3/uL (0-0.05); Absolute Lymphocytes 0.9 10^3/uL (1.2-3.4); Absolute Neutrophils 7.3 10^3/uL (1.4-6.5); Hematocrit 48.6 % (39.0-52.0); Hemoglobin 16.7 g/dL (13.0-18.0); Mean Corp Hgb Conc. 34.4 g/dL (33.0-37.0); Mean Corpuscular Hgb 28.6 pg (27.0-31.0); Mean Corpuscular Volume 83.4 fL (80.0-94.0); Mean Platelet Volume 10.3 fL (7.4-10.4); Nucleated Red Blood Cells % 0 % (-); Platelet Count 144 10^3/uL (130-400); Red Blood Cell Count 5.83 10^6/uL (4.70-6.10); Red Cell Dist. Width 15.3 % (11.5-14.5); White Blood Cell Count 9.5 10^3/uL (4.8-10.8)
[2024-03-27 18:10] LABS: ALT (SGPT) 22 U/L (0-50); AST (SGOT) 26 U/L (17-59); Albumin 4.7 g/dl (3.5-5.0); Alkaline Phosphatase 107 U/L (38-126); Blood Urea Nitrogen 23 mg/dl (9-20); Calcium 9.6 mg/dl (8.4-10.2); Carbon Dioxide 20 mmol/L (22-30); Chloride 103 mmol/L (98-107); Glucose 101 mg/dl (70-99); Potassium 4.8 mmol/L (3.5-5.1); Sodium 134 mmol/L (135-145); Total Protein 7.2 g/dl (6.3-8.2); eGFR 55.88
[2024-03-27 18:21] LABS: NT-proBNP 262 pg/ml; Troponin I 0.016 ng/ml
--- NOTE | 2024-03-27 18:51 | ED.GENMED ---
History of Present Illness
General
Chief Complaint: Headache
Source: patient
Exam Limitations: none
Time Seen by Provider: 03/27/24 16:44
Nursing documentation reviewed up to this point in time: agreed with
History of Present Illness
History of Present Illness:
Patient to ED with complaint of sharp pain to left arm left neck and head. Symptoms started earlier today. Denies any chest pain or pressure. NO SOB.
Past History
Past History
ED Past Medical History: COPD, HTN and Hypercholesterolemia
ED Past Surgical History: Orthopedic; Negative Cardiac (cath 06/2013)
Social History
Tobacco: Smoker
Alcohol: Binge drinker
Drug: None
Personal:
Living: with family
Employment: Retired
Family History
Family History: Hypertension
Review of Systems
Review of Systems
Allergies reviewed?: Yes
All Other Systems: ROS reviewed and negative except as documented in HPI and ROS
Constitutional: Reports no symptoms
EENT: Reports no symptoms
Respiratory: Reports no symptoms
Cardiac: Reports no symptoms
ABD/GI: Reports no symptoms
: Reports no symptoms
Musculoskeletal: Reports other (left arm pain, left neck pain)
Skin: Reports no symptoms
Neurological: Reports no symptoms
Psychiatric: Reports no symptoms
Phy Exam
General Physical Exam
General Presentation: well appearing and no apparent distress
General age: appears stated age
General Skin: warm and dry
General Habitus: normal
General Mental: alert
Cardiovascular Exam
Cardiovascular Exam: regular rate/rhythm and no edema
Pulmonary Exam
Pulmonary Exam: lungs clear and no respiratory distress
Gastrointestinal Exam
Gastrointestinal Exam: normal bowel sounds, non tender, soft and no organomegaly
Neurological Exam
Neurological Exam: alert, oriented x3, CN II-XII intact, no motor deficits, no sensory deficits, speech normal and normal gait
Musculoskeletal Exam
Musculoskeletal Exam: full ROM and neuro vasc intact
Skin Exam
Skin Exam: normal color, warm/dry and no rash
Psychiatric Exam
Psychiatric Exam: normal mood/affect
Course
Orders/Labs/Results
Orders:
Orders
03/27/24 16:28
Electrocardiogram (*1) Urgent
Reason for Study: Other
Other Reason for Exam: left arm pain
03/27/24 16:29
EKG- Treatment ONCE
03/27/24 16:58
Interrogate Pacemaker- Treatment ONCE
03/27/24 16:59
0.9% Sodium Chloride 500 ml [Nss] 500 ml IV BOLUS
Morphine Sulfate 2 mg IV NOW STA
Ondansetron Injectable [Zofran] 4 mg IV NOW STA
03/27/24 17:01
CT Head W/o Iv Contrast Urgent
Comment:
Reason For Exam: pain
CR Chest - 2 Views Urgent
Comment:
Reason For Exam: chest pain
03/27/24 17:42
Complete Blood Count/With Diff Urgent
Comprehensive Metabolic Panel Urgent
NT-proBNP Urgent
Troponin I Urgent
Abnormal Lab Results
03/27/24
17:42
RDW 15.3 H %
(11.5-14.5)
Abs Immat Gran (auto) 0.1 H 10^3/uL
(0-0.05)
Absolute Neuts (auto) 7.3 H 10^3/uL
(1.4-6.5)
Absolute Lymphs (auto) 0.9 L 10^3/uL
(1.2-3.4)
Absolute Monos (auto) 1.0 H 10^3/uL
(0.1-0.6)
Immature Gran % 0.7 H %
(0-0.5)
Neutrophils % 77.0 H %
(42.2-75.2)
Lymphocytes % 9.5 L %
(20.5-51.1)
Monocytes % 10.7 H %
(1.7-9.3)
Sodium 134 L mmol/L
(135-145)
Carbon Dioxide 20 L mmol/L
(22-30)
BUN 23 H mg/dl
(9-20)
Glucose 101 H mg/dl
(70-99)
03/27/24 17:42
03/27/24 17:42
Vital Signs
Initial and Last Documented VS:
Initial Vital Signs
Temp Pulse Resp BP Pulse Ox
98.9 F 90 20 109/65 96
03/27/24 16:25 03/27/24 16:25 03/27/24 16:25 03/27/24 16:25 03/27/24 16:25
Last Documented Vital Signs
Temp Pulse Resp BP Pulse Ox
98.9 F 73 11 116/68 90
03/27/24 16:25 03/27/24 18:45 03/27/24 18:45 03/27/24 18:00 03/27/24 18:45
*Radiology
Radiology exam reviewed: radiology read reviewed
*Pulse Oximetry
Patient hypoxic: no
*Critical Care Note
Total Time (30-74mins, 75-104mins- exclusive of procedures): Not Applicable
ED Attending Note
-
Portions of this chart may have been created with voice recognition software.� Occasional wrong word or��sound alike� substitutions may have occurred due to the inherent limitations of voice recognition software.
Discharge Plan
Departure
Patient Disposition: Home (Routine Discharge)
Date of Disposition: 03/27/24
Time of Disposition: 18:51
Patient with high blood pressure during this ER visit?: No
Condition: Good
Covid-19: Not Applicable
Discharge Problem:
Neck pain
Instructions: Neck pain, Headache, Adult (DC)
Prescriptions:
No Action
levocetirizine [Xyzal] 5 mg Tablet
5 mg PO HS
budesonide-formoterol 160-4.5 mcg/actuation Hfa Aerosol Inhaler
2 puff inhalation R BID
gabapentin 300 mg capsule
300 mg PO HS
pantoprazole 40 mg Tablet,Delayed Release (Dr/Ec)
40 mg PO DAILY 30 Days Qty: 30 0RF
guaifenesin 200 mg Tablet
200 mg PO BID
spironolactone 25 mg Tablet
12.5 mg PO DAILY Qty: 30 11RF
Entresto 24-26 mg Tablet
1 tab PO BID Qty: 60 11RF
dapagliflozin propanediol [Farxiga] 10 mg Tablet
10 mg PO DAILY Qty: 30 11RF
amiodarone [Pacerone] 200 mg Tablet
200 mg PO DAILY Qty: 0 0RF
metoprolol succinate 25 mg Tablet Extended Release 24 Hr
25 mg PO DAILY Qty: 0 0RF
aspirin 81 mg capsule
81 mg PO DAILY Qty: 30 0RF
atorvastatin 40 mg tablet
40 mg PO HS Qty: 30 0RF
furosemide [Lasix] 20 mg tablet
20 mg PO Q OTHER DAY Qty: 30 0RF
Rx Instructions:
Thursday
Referrals:
Steven Reynolds, DO [Family Provider] - Tomorrow
Interventions
Interventions:
*Risk Screen - Suicide Last Done: 03/27/24 17:56
*General Assessment Last Done: 03/27/24 17:56
*Neglect/Abuse Screening Last Done: 03/27/24 17:56
ED- Fall Risk Assessment Last Done: 03/27/24 18:59
*ED COVID-19 Vaccine History Last Done: 03/27/24 17:56
*Nursing Disposition Last Done: 03/27/24 18:59
ED- Neurological Assessment Last Done: 03/27/24 17:56
Discharge Date and Time
Discharge Date/Time: 03/27/24 18:59
Print Language: KOREAN
== END 2024-03-27 18:59 | disposition home or self-care (01) ==
LOC: EMR 16:20
PROVIDERS: Nurse Practitioner; EMERGENCY PHYSICIAN Emergency Medicine; FAMILY PHYSICIAN Family Medicine
DX: M79.602 Pain in left arm (principal); R51.9 Headache, unspecified; M54.2 Cervicalgia; R11.0 Nausea; R06.02 Shortness of breath; J44.9 Chronic obstructive pulmonary disease, unspecified; I10 Essential (primary) hypertension; E78.00 Pure hypercholesterolemia, unspecified; F17.200 Nicotine dependence, unspecified, uncomplicated; Z95.0 Presence of cardiac pacemaker
CPT/HCPCS: 99284; 96374; 96375; 96361; 93288; 70450; 71046; 80053; 83880; 84484; 85025; 93005

== ENCOUNTER → 2024-04-04 07:17 | Outpatient (REF) | payer OTHER, SELFPAY | LOC: HWRAD 07:17 | PROVIDERS: ATTENDING PHYSICIAN Nurse Practitioner Adult Health; FAMILY PHYSICIAN Student in an Organized Health Care Education/Training Program | DX: R91.1 Solitary pulmonary nodule (principal) | CPT/HCPCS: 71250 ==

== ENCOUNTER 2024-05-10 23:03 | Observation (INO) | payer OTHER, SELFPAY ==
[2024-05-10 20:24] VITALS: BP 94/65
--- NOTE | 2024-05-10 20:46 | ED.GENMED ---
History of Present Illness
General
Chief Complaint: Chest Pain
Time Seen by Provider: 05/10/24 20:47
History of Present Illness
History of Present Illness:
HPI: The patient presents due to ongoing chest pain and shortness of breath since at least yesterday. The daughter, who works for Dr. EDGAR Todd, took him to Dr. Satinder Todd's office yesterday we had a pacemaker interrogation which suggested some
degree of increased heart failure parameters. The patient has a history of nonischemic cardiomyopathy with an EF of 30 to 35%. Dr. Todd recommended to increase the Lasix. They did increase Lasix however he feels no improvement. Daughter states
his blood pressure usually is chronically low. Family reports no increase in weight. In the past, he was only taking diuretic more on an as-needed basis.
EXAM:
GENERAL: Well appearing in no distress, blood pressure while I was in the room was 120/79
HEENT: Moist oral mucosa
CARDIOVASCULAR: No murmurs, normal heart rate, regular rhythm, No chest wall tenderness
PULMONARY: No respiratory distress, breath sounds are clear and equal
ABDOMEN: Soft with no peritoneal signs, no tenderness
NEUROLOGIC: Excellent strength all extremities, no coordination deficits
PSYCHIATRIC: Appropriate mental status, normal insight and judgement
EXTREMITIES: Nontender, no edema, moves all extremities equally
SKIN: No rash, no lesions
TIME OF INITIAL ENCOUNTER: 8:50 PM
NUMBER AND COMPLEXITY OF PROBLEMS ADDRESSED AT THE ENCOUNTER
� Chronic conditions affecting care: Nonischemic cardiomyopathy with EF of 30 to 35%, nonobstructive CAD
� Acute Exacerbation and/or Progression of Chronic Illness: This is an acute problem
� Differential Diagnosis includes: Progression of CHF
AMOUNT AND/OR COMPLEXITY OF DATA TO BE REVIEWED AND ANALYZED
� I performed an independent evaluation of and my interpretation is:
EKG: V paced rate of 72
CT:
X-rays: Chest x-ray shows pacemaker with questionable small left pleural effusion
Laboratory Studies: White count and hemoglobin are normal, renal function has worsened
Other: We did interrogate the [employer] device�report indicates no dysrhythmia since yesterday (was interrogated yesterday reportedly at Dr. Todd's office)
� Review of other/old records: I reviewed echo from 03/14/2024 which showed an EF of 25 to 30%. Stage I diastolic dysfunction noted
� Clinical information was obtained by an independent historian: I spoke to daughters at bedside
� Prescriptions/Medications Considered but not given:
� Further testing considered but not performed: Considered diuresis however the patient's weight as not increased and his renal function has worsened. Troponin normal and BNP not significantly higher than prior.
RISK OF COMPLICATIONS AND/OR MORBIDITY OR MORTALITY OF PATIENT MANAGEMENT
� Social determinants of health affecting care: Lives at home
� Discussion with other providers: Hospitalist acute for further observation
� Escalation of care including admission/observation vs risk of discharge considered: On reassessment at around 9:30 PM, the daughter does not feel comfortable with him going back with ongoing symptoms. Unclear etiology of his
symptoms.
Past History
Past History
ED Past Medical History: COPD, HTN and Hypercholesterolemia
ED Past Surgical History: Orthopedic; Negative Cardiac (cath 06/2013)
Social History
Tobacco: Smoker
Alcohol: Binge drinker
Drug: None
Personal:
Living: with family
Employment: Retired
Family History
Family History: Hypertension
Phy Exam
Physical Exam
Physical Exam:
See HPI
Scores
Heart Score for Chest Pain Patients
STEMI patient?: Not applicable
Course
Orders/Labs/Results
Orders:
Orders
05/10/24 20:21
Electrocardiogram (*1) Urgent
Reason for Study: Shortness of Breath
Other Reason for Exam: chest pain
EKG- Treatment ONCE
05/10/24 20:31
Electrocardiogram (*1) Urgent
Reason for Study: Chest Pain
EKG- Treatment ONCE
05/10/24 20:35
BNP [NT-proBNP] Urgent
Complete Blood Count/With Diff Urgent
Comprehensive Metabolic Panel Urgent
Troponin I Urgent
05/10/24 20:56
CR Chest - 2 Views Urgent
Comment:
Reason For Exam: cp sob
05/10/24 23:00
Flush (0.9% Sodium Chloride) [Flush (Nss)] See Dose Instructions IV PER PROTOCOL
Abnormal Lab Results
05/10/24
20:35
RDW 14.8 H %
(11.5-14.5)
Abs Immat Gran (auto) 0.1 H 10^3/uL
(0-0.05)
Absolute Neuts (auto) 7.2 H 10^3/uL
(1.4-6.5)
Absolute Monos (auto) 1.1 H 10^3/uL
(0.1-0.6)
Immature Gran % 0.8 H %
(0-0.5)
Lymphocytes % 15.0 L %
(20.5-51.1)
Monocytes % 10.9 H %
(1.7-9.3)
Sodium 133 L mmol/L
(135-145)
Carbon Dioxide 18 L mmol/L
(22-30)
BUN 38 H mg/dl
(9-20)
Creatinine 1.8 H mg/dL
(0.7-1.3)
05/10/24 20:35
05/10/24 20:35
Vital Signs
Initial and Last Documented VS:
Initial Vital Signs
Temp Pulse Resp BP Pulse Ox
96.6 F L 74 26 94/65 94
05/10/24 20:24 05/10/24 20:24 05/10/24 20:24 05/10/24 20:24 05/10/24 20:24
Last Documented Vital Signs
Temp Pulse Resp BP Pulse Ox
96.6 F L 74 26 94/65 94
05/10/24 20:24 05/10/24 20:24 05/10/24 20:24 05/10/24 20:24 05/10/24 20:24
*Critical Care Note
Total Time (30-74mins, 75-104mins- exclusive of procedures): Not Applicable
ED Attending Note
-
Portions of this chart may have been created with voice recognition software.� Occasional wrong word or��sound alike� substitutions may have occurred due to the inherent limitations of voice recognition software.
Discharge Plan
Departure
Patient Disposition: Admit
Date of Disposition: 05/10/24
Time of Disposition: 21:59
Presentation/result/management discussed w/ accepting MD/DO: Hospitalist
Discharge Problem:
Nonischemic cardiomyopathy
Prescriptions:
No Action
levocetirizine [Xyzal] 5 mg Tablet
5 mg PO HS
budesonide-formoterol 160-4.5 mcg/actuation Hfa Aerosol Inhaler
2 puff inhalation R BID
gabapentin 300 mg capsule
300 mg PO HS
pantoprazole 40 mg Tablet,Delayed Release (Dr/Ec)
40 mg PO DAILY 30 Days Qty: 30 0RF
guaifenesin 200 mg Tablet
200 mg PO BID
spironolactone 25 mg Tablet
12.5 mg PO DAILY Qty: 30 11RF
Entresto 24-26 mg Tablet
1 tab PO BID Qty: 60 11RF
dapagliflozin propanediol [Farxiga] 10 mg Tablet
10 mg PO DAILY Qty: 30 11RF
amiodarone [Pacerone] 200 mg Tablet
200 mg PO DAILY Qty: 0 0RF
metoprolol succinate 25 mg Tablet Extended Release 24 Hr
25 mg PO DAILY Qty: 0 0RF
aspirin 81 mg capsule
81 mg PO DAILY Qty: 30 0RF
atorvastatin 40 mg tablet
40 mg PO HS Qty: 30 0RF
furosemide [Lasix] 20 mg tablet
20 mg PO Q OTHER DAY Qty: 30 0RF
Rx Instructions:
Thursday
Referrals:
tSeven Hay MD [Family Provider] -
Interventions
Interventions:
*Risk Screen - Suicide Last Done: 05/10/24 20:24
*Neglect/Abuse Screening Last Done: 05/10/24 20:24
Discharge Date and Time
Print Language: ARABIC
[2024-05-10 20:51] LABS: % Basophils 0.4 % (0-2); % Eosinophils 4.5 % (0-6); % Immature Granulocytes 0.8 % (0-0.5); % Monocytes 10.9 % (1.7-9.3); % Neutrophils 68.4 % (42.2-75.2); Absolute Eosinophils 0.5 10^3/uL (0-0.7); Absolute Immature Granulocytes 0.1 10^3/uL (0-0.05); Absolute Lymphocytes 1.6 10^3/uL (1.2-3.4); Absolute Monocytes 1.1 10^3/uL (0.1-0.6); Absolute Neutrophils 7.2 10^3/uL (1.4-6.5); Hematocrit 48.7 % (39.0-52.0); Hemoglobin 17.1 g/dL (13.0-18.0); Mean Corp Hgb Conc. 35.1 g/dL (33.0-37.0); Mean Corpuscular Hgb 29.4 pg (27.0-31.0); Mean Corpuscular Volume 83.8 fL (80.0-94.0); Nucleated Red Blood Cells % 0 % (-); Platelet Count 184 10^3/uL (130-400); Red Blood Cell Count 5.81 10^6/uL (4.70-6.10); Red Cell Dist. Width 14.8 % (11.5-14.5); White Blood Cell Count 10.5 10^3/uL (4.8-10.8)
[2024-05-10 21:14] LABS: NT-proBNP 209 pg/ml; Troponin I < 0.012 ng/ml
[2024-05-10 21:23] LABS: ALT (SGPT) 20 U/L (0-50); AST (SGOT) 27 U/L (17-59); Albumin 4.6 g/dl (3.5-5.0); Alkaline Phosphatase 102 U/L (38-126); Blood Urea Nitrogen 38 mg/dl (9-20); Calcium 9.4 mg/dl (8.4-10.2); Carbon Dioxide 18 mmol/L (22-30); Chloride 102 mmol/L (98-107); Glucose 98 mg/dl (70-99); Potassium 4.7 mmol/L (3.5-5.1); Sodium 133 mmol/L (135-145); Total Bilirubin 0.9 mg/dl (0.2-1.3); Total Protein 7.2 g/dl (6.3-8.2); eGFR 37.82
--- NOTE | 2024-05-10 22:27 | HPS.HSE ---
Addendum entered and electronically signed by Asa Watkins MD 05/11/24 12:57:
Correction:
HX Chronic HFmEF : BNP is at baseline
- Family reports no increase in weight.
- In the past, he was only taking diuretic more on an as-needed basis.
- Wt at ER and daily
- Continue Entresto, <del>spironolactone</del>
- Continue aspirin, statin
- Continue dapagliflozin
- DCA card consult
Original Note:
Family Physician
-
Family Physician: Steven Hay MD
Chief Complaint
-
CP/SOB
History of Present Illness
78M HX chr HFmEF with LVEF 20-25, recurretn NSTVT, NICM, PPM implant sent to ER by P repairer helper for Acute on chr CHF. He was placed on Lasix yesterday but SoB and Chest prorgressive. [facility] increase Lasix however he feels no improvement.
- Daughter states his blood pressure usually is chronically low.
- Family reports no increase in weight.
- In the past, he was only taking diuretic more on an as-needed basis.
Medical History
Past Medical History
Past Medical History: Reports Other (recurrent nonsustained ventricular tachycardia with ICD, HFrEF, nonischemic cardiomyopathy, essential hypertension, left medial hallux pain, KATE hypertension, hyperlipidemia, COPD, obstructive sleep apnea)
Past Surgical History: Reports None
Social History
Tobacco: Non-smoker
Alcohol: Occasional
Drug: None
Family History
Family History: Not pertinent
Allergies / Home Medications
Allergies reflects when Allergies were last updated in [facility].
Home Medications with original date entered in [facility]
Allergy/Medication List:
Allergies
Allergy/AdvReac Type Severity Reaction Status Date / Time
No Known Allergies Allergy Verified 02/26/24 16:03
Home Medications
aspirin 81 mg tablet,delayed release 81 mg PO Q48H Blood clot prevention/tx 10/05/22
atorvastatin 40 mg tablet (Lipitor) 40 mg PO DAILY High cholesterol 10/05/22
budesonide-formoterol HFA 160 mcg-4.5 mcg/actuation aerosol inhaler 2 puff inhalation R BID Lung/breathing issues 10/05/22
levocetirizine 5 mg tablet (Xyzal) 5 mg PO HS Allergies 10/05/22
gabapentin 300 mg capsule 300 mg PO HS Pain 11/03/22
metoprolol succinate 25 mg tablet,extended release 24 hr (Toprol XL) 25 mg PO BID Blood Pressure 08/21/23
pantoprazole 40 mg tablet,delayed release 40 mg PO DAILY Gastrointestinal issue 30 days #30 tabs 08/27/23
guaifenesin 200 mg tablet 200 mg PO BID 11/12/23
amiodarone 200 mg tablet 200 mg PO BID Arrhythmia #28 tabs 11/19/23
amiodarone 200 mg tablet 200 mg PO DAILY Arrhythmia #30 tabs 11/19/23
amiodarone 200 mg tablet 200 mg PO TID Arrhythmia #42 tabs 11/19/23
dapagliflozin propanediol 10 mg tablet (Farxiga) 10 mg PO DAILY Heart Failure #30 tabs 11/19/23
sacubitril 24 mg-valsartan 26 mg tablet (Entresto) 1 tab PO BID Heart Failure #60 tabs 11/19/23
spironolactone 25 mg tablet 12.5 mg (1/2 x 25 mg) PO DAILY Heart Failure #30 tabs 11/19/23
Review of Systems
-
Constitutional: Reports No Symptoms
EENT: Reports No Symptoms
Respiratory: Reports Trouble Breathing
Cardiac: Reports Chest Pain
Abdomen/GI: Reports No Symptoms
: Reports No Symptoms
Musculoskeletal: Reports No Symptoms
Skin: Reports No Symptoms
Neurological: Reports No Symptoms
Endocrine: Reports No Symptoms
Hematologic/Lymphatic: Reports No Symptoms
Psych: Reports No Symptoms
Physical Exam
Vital Signs
Vital Signs
Temp Pulse Resp BP Pulse Ox
96.6 F L 74 26 94/65 94
05/10/24 20:24 05/10/24 20:24 05/10/24 20:24 05/10/24 20:24 05/10/24 20:24
Physical Exam
General: Well Developed, Well Nourished and No Apparent Distress
HEENT: NormoCephalic, Moist mucous membranes and Atraumatic
Respiratory: Clear
Cardiac: S1/S2 and Regular Rhythm; No Murmur or Rub
GI: Soft, Non Tender, Non Distended and Normal Bowel Sounds; No Organomegaly
Rectal: Deferred by Provider
Musculoskeletal: No Clubbing, No Cyanosis and No Edema
Skin: No Rash
Neuro: Nonfocal/grossly intact
Laboratory Results
-
05/10/24 20:35
05/10/24 20:35
Laboratory Results
Total Bilirubin 0.9 mg/dl (0.2-1.3) 05/10/24 20:35
AST 27 U/L (17-59) 05/10/24 20:35
ALT 20 U/L (0-50) 05/10/24 20:35
Alkaline Phosphatase 102 U/L (38-126) 05/10/24 20:35
Troponin I < 0.012 ng/ml 05/10/24 20:35
Data Reviewed
-
Medical Tests (Nuc Med, Echo, EKG etc): Report Reviewed by me
Lab Data: Labs Reviewed by me
Old Records: Reviewed
Impression/Plan
-
Reviewed VS: 96.6 HR 74 BP 95/65 POx 94 on RA
Data
Unremarkable CBC
Na 133 - 134 on 03/27/24
CO2 18 - baseline 18-20
BUN 38
Cr 1.8 - bl mid 1s
eGFR 37s - bl is hi 40s c/w CKD3a/b
NEG first TPNI
pro BNP 209 at baseline
EKG report
Ventricular-paced rhythm
ABNORMAL ECG
WHEN COMPARED WITH ECG OF 27-MAR-2024 16:32,
VENT. RATE HAS DECREASED BY 9 BPM
CXR pending
03/14/24 ECHO
LVEF 25-30
Stage I diastolic dysfunction suggestive of abnormal relaxation.
Normal right ventricular size and function.
Estimated pulmonary artery pressure of 25-30 mmHg. Assuming a right atrial pressure of 3 mmHg.
Last hospitalist admission: 02/25- 02/27/24
PDX
Chest pain.
History of coronary disease.
History of chronic systolic congestive heart failure.
ASSESSMENT & PLAN
Worsening CP/SOB
- HX NICM
- NEG TPNI
-EKG shows AV dual paced rhythm, no ischemic changes
- Trend TPNI
- DCA card consult
HX Chronic HFmEF : BNP is at baseline
- Family reports no increase in weight.
- In the past, he was only taking diuretic more on an as-needed basis.
- Wt at ER and daily
- Continue Entresto, spironolactone
- Continue aspirin, statin
- Continue dapagliflozin
- DCA card consult
CKD 3a/b with element of ESTEBAN
- observe Cr
- held Spironolactone
HX recurrent nonsustained ventricular tachycardia with ICD
- ICD to be interrogated at OP
- Continue amiodarone
Chronic hypotension with postural hypotension HX
Essential hypertension
- Held Spironolactone
- Continue metoprolol
- fall precuation
Hyperlipidemia
COPD
- Continue inhalers
Obstructive sleep apnea
Obesity
- Noncompliant with CPAP
Recurrent diverticulitis status post sigmoidectomy
HX cigarette use in the past
HX GERD
HX left medial hallux pain
DVT Px: SQH
Code: Full code
IP TLM
[2024-05-11 00:55] VITALS: BMI 28.2
[2024-05-11 00:59] VITALS: BP 138/68
[2024-05-11 01:42] LABS: Troponin I < 0.012 ng/ml
[2024-05-11 01:56] VITALS: BMI 28.2
[2024-05-11 03:33] VITALS: BP 111/56
[2024-05-11 04:32] LABS: % Basophils 0.4 % (0-2); % Eosinophils 4.7 % (0-6); % Immature Granulocytes 0.6 % (0-0.5); % Lymphocytes 16.1 % (20.5-51.1); % Monocytes 9.1 % (1.7-9.3); % Neutrophils 69.1 % (42.2-75.2); Absolute Eosinophils 0.5 10^3/uL (0-0.7); Absolute Immature Granulocytes 0.1 10^3/uL (0-0.05); Absolute Lymphocytes 1.7 10^3/uL (1.2-3.4); Absolute Monocytes 0.9 10^3/uL (0.1-0.6); Absolute Neutrophils 7.1 10^3/uL (1.4-6.5); Hematocrit 48.7 % (39.0-52.0); Hemoglobin 17.1 g/dL (13.0-18.0); Mean Corp Hgb Conc. 35.1 g/dL (33.0-37.0); Mean Corpuscular Hgb 30.2 pg (27.0-31.0); Nucleated Red Blood Cells % 0 % (-); Platelet Count 150 10^3/uL (130-400); Red Blood Cell Count 5.66 10^6/uL (4.70-6.10); Red Cell Dist. Width 14.7 % (11.5-14.5); White Blood Cell Count 10.2 10^3/uL (4.8-10.8)
[2024-05-11 04:56] LABS: ALT (SGPT) 19 U/L (0-50); AST (SGOT) 23 U/L (17-59); Albumin 4.2 g/dl (3.5-5.0); Alkaline Phosphatase 104 U/L (38-126); Blood Urea Nitrogen 38 mg/dl (9-20); Calcium 9.6 mg/dl (8.4-10.2); Carbon Dioxide 20 mmol/L (22-30); Chloride 104 mmol/L (98-107); Estimated Creatinine Clearance 36 ml/min; Glucose 128 mg/dl (70-99); Potassium 4.4 mmol/L (3.5-5.1); Sodium 135 mmol/L (135-145); Total Bilirubin 0.7 mg/dl (0.2-1.3); Total Protein 6.6 g/dl (6.3-8.2); eGFR 43.56
[2024-05-11 05:05] LABS: Troponin I < 0.012 ng/ml
[2024-05-11] MEDS: SYMBICORT 160/4.5 MCG INHALER 2 PUFF INH ×2 (07:45→20:38)
[2024-05-11] MEDS: FARXIGA 10 MG PO (08:45)
[2024-05-11] MEDS: TOPROL XL 12.5 MG PO (08:45)
[2024-05-11] MEDS: PROTONIX 40 MG PO (08:46)
[2024-05-11] MEDS: PACERONE 200 MG PO (08:46)
[2024-05-11] MEDS: LIPITOR 40 MG PO (08:47)
[2024-05-11] MEDS: HEPARIN 5000 UNITS SC ×2 (08:47→20:34)
[2024-05-11] MEDS: MUCINEX 1200 MG PO ×2 (08:47→20:34)
[2024-05-11] MEDS: LASIX 20 MG PO (08:47)
--- NOTE | 2024-05-11 09:05 | CON.CAR ---
Addendum entered and electronically signed by Sina Mcguire DO 05/11/24 13:55:
I saw and examined the patient.
The Government Guard's note was reviewed and I agree with the note.
Comment:
Plan:
Appears volume overloaded. Transition to IV lasix 40 mg IV BID
OPTIVOL trending up.
Monitor Is and Os and daily wts.
Hypotension has also made it difficult to titrate GDMT and EF was down somewhat at 25-30% by last echo 03/14/24. Patient has not noticed any weight gain or increased LE edema at home, but feels dyspnea
Cont Toprol. Hold Entresto if needed for hypotension to allow for more room for bp with diuresis.
May need to establish a new dry wt
CXR without acute findings by report
Discussed with nursing.
�
Original Note:
Consultation
Consultation Request
Date/Time Consultation Requested: 05/11/24 at 0037
Date/Time Consultation Performed: 05/11/24 at 0924
Requesting Provider: Dr. Barnes
Performing Provider: Dr. Mcguire
Reason for Consultation: Chest pain and SOB
Medical History
-
History of Present Illness:
Patient came to [facility] yesterday with chest pain and SOB and cardiology has been consulted. Patient was seen in the office on 05/11/2024 for symptoms of shortness of breath that had started a few days earlier. He also had a vague chest
discomfort without radiation. Device check showed increased Optivol and there was concern for acute HF because overall this felt similar to recent admission 02/26/24 until 02/27/24 when he had chest pain with serially normal Troponins and evidence of
acute HF on ICD check. During that admission patient symptomatically improved with IV diuresis and was d/c'd to home on Lasix 3 times a week, but that dose was later changed to PRN during office visit 03/03/24 due to hypotension. Hypotension has also
made it difficult to titrate GDMT and EF was down a bit to 25-30% by last echo 03/14/24. Patient has not noticed any weight gain or increased LE edema at home, but feels SOB and has WEBER.
PMH:
Recent admission for chest pain, SOB and acute HF 02/26/24 until 02/27/24
Chronic HFrEF
Nonischemic cardiomyopathy, EF 30-35% by echo 11/13/23
Nonobstructive coronary artery disease by cath 11/03/22
s/p Medtronic COIL TESTER-D 11/16/23
RV lead revision 11/17/23
s/p robotic sigmoidectomy for recurrent diverticulitis on 09/17/2023
Hypertension
Hyperlipidemia
PVCs
Former smoker
COPD
Obstructive sleep apnea, CPAP intolerant
Past Medical History
Past Medical History: Other (in HPI)
Past Surgical History: Bowel Resection (Robotic sigmoidectomy September 2023), Orthopedic (Right knee arthroscopy, foot and bilateral hand surgery) and Other (Herniorrhaphy)
Social History
Tobacco: Former Smoker
Alcohol: None
Drug: None
Personal:
Living: With Family (Lives with daughter Effie)
Employment: Retired
Family History
Family History: Reviewed & Not Pertinent
Allergies / Home Medications
Allergy/AdvReac Type Severity Reaction Status Date / Time
No Known Allergies Allergy Verified 05/10/24 20:30
�Medication �Instructions �Recorded �Confirmed �Type
budesonide-formoterol HFA 160 2 puff inhalation R BID 10/05/22 05/10/24 History
mcg-4.5 mcg/actuation aerosol Lung/breathing issues
inhaler
levocetirizine 5 mg tablet (Xyzal) 5 mg PO HS Allergies 10/05/22 05/10/24 History
pantoprazole 40 mg tablet,delayed 40 mg PO DAILY Gastrointestinal 08/27/23 05/10/24 Rx
release issue 30 days #30 tabs
dapagliflozin propanediol 10 mg 10 mg PO DAILY Heart Failure #30 11/19/23 05/10/24 Rx
tablet (Farxiga) tabs
spironolactone 25 mg tablet 12.5 mg (1/2 x 25 mg) PO DAILY 11/19/23 05/10/24 Rx
Heart Failure #30 tabs
amiodarone 200 mg tablet (Pacerone) 200 mg PO DAILY #0 tabs 02/27/24 05/10/24 Rx
aspirin 81 mg capsule 81 mg PO Q48H Blood Clot 05/10/24 05/10/24 History
Prevention/Tx
atorvastatin 40 mg tablet 40 mg PO DAILY High Cholesterol 05/10/24 05/10/24 History
furosemide 20 mg tablet (Lasix) 20 mg PO MOWEFR Fluid 05/10/24 05/10/24 History
Retention/Swelling
guaifenesin 1,200 mg tablet, 1,200 mg PO BID congestion/cough 05/10/24 05/10/24 History
extended release 12 hr
metoprolol succinate 25 mg 12.5 mg PO DAILY Blood Pressure 05/10/24 05/10/24 History
tablet,extended release 24 hr
sacubitril 24 mg-valsartan 26 mg 1 tab PO HS Heart Failure 05/10/24 05/10/24 History
tablet (Entresto)
Review of Systems
-
History Source: Patient and Family (daughter, Janey, by phone)
All other systems: Negative unless noted
Physical Exam
Vital Signs
Temp Pulse Resp BP Pulse Ox
98.0 F 69 16 111/56 95
05/11/24 03:33 05/11/24 08:46 05/11/24 07:48 05/11/24 08:46 05/11/24 07:48
GEN: NAD. AAOx3
HEENT: EOMI, MMM
LUNGS: CTA B/L without rales
CV: Reg, no murmur
ABD: soft, BS+, ND, NT
EXT: No clubbing, cyanosis, lesions or edema B/L
NEURO: Gross non-focal
SKIN: Warm, dry and pink. No rash
Lab Results
05/11/24 04:09
05/11/24 04:09
Troponin I Cancelled 05/11/24 07:16
Tau-B-Rjwhywkhyxm Pept 209 pg/ml 05/10/24 20:35
Impression / Plan
-
PCP: Steven Reynolds
Green Chain Marker: Dr. EDGAR Todd
Impression:
Chest pain
SOB, WEBER
Recent admission for chest pain, SOB and acute HF 02/26/24 until 02/27/24
Acute on chronic HFrEF
Nonischemic cardiomyopathy, EF 30-35% by echo 11/13/23
Nonobstructive coronary artery disease by cath 11/03/22
s/p Medtronic COIL TESTER-D 11/16/23
RV lead revision 11/17/23
s/p robotic sigmoidectomy for recurrent diverticulitis on 09/17/2023
Hypertension
Hyperlipidemia
PVCs
Former smoker
COPD
Obstructive sleep apnea, CPAP intolerant
Nuclear Sestamibi 10/30/22. Mild to moderate-sized, mid intensity defect in the basal, mid, inferior and apical segments. Summed rest score was 4.
Cardiac cath 11/03/2022:�LM: NL; LAD: LI, A [employer]ler Omni wire was advanced to the distal LAD and the iFR serially measured at/above the ischemic threshold. RAMUS:LI. LCX:LI. RCA: LI.� LVG:Mildly reduced LVEF estimated 45% with moderate global
hypokinesis that is more pronounced in the inferior and anterolateral gallegos
Echo 10/30/22: EF 40-45%,� mild concentric LVH with inferior, anteroseptal, and focal apical hypokinesis. Thickened mitral leaflets w/ trace MR. nl LA. trace AR. nl RV. nl RA. aortic root is 4cm. Similar to December 2021.
Echo 09/16/23: EF 40 to 45%, mild global hypokinesis, stage I diastolic dysfunction, mild MR, trace TR, mildly dilated aortic root at 4.0 cm.
Echo 11/13/23: EF 30-35%, global hypokinesis, mild LVH, trace MR, aortic valve grossly normal, right atrium normal left atrium mildly dilated, RV normal, trace TR
Echo 03/14/24: EF 25 to 30%, global hypokinesis, trace MR, trace TR with PAP 25 to 30 mmHg, compared to previous 11/13/23 study EF is currently 25 to 30% and was previously 30 to 35%
Plan:
-Patient came to [facility] yesterday with chest pain and SOB and cardiology has been consulted. Patient was seen in the office on 05/11/2024 for symptoms of shortness of breath that had started a few days earlier. He also had a vague chest
discomfort without radiation. Device check showed increased Optivol and there was concern for acute HF because overall this felt similar to recent admission 02/26/24 until 02/27/24 when he had chest pain with serially normal Troponins and evidence of
acute HF on ICD check. During that admission patient symptomatically improved with IV diuresis and was d/c'd to home on Lasix 3 times a week, but that dose was later changed to PRN during office visit 03/03/24 due to hypotension. Hypotension has also
made it difficult to titrate GDMT and EF was down a bit to 25-30% by last echo 03/14/24. Patient has not noticed any weight gain or increased LE edema at home, but feels SOB and has WEBER.
-Patient with stable pro-BNP, but Optivol was trending up during office check 05/09/24 and is trending up again by ER device check last night. Talked with patient and daughter and will diurese with Lasix 40 mg IV daily.
-pro-BNP is always in the 200-300 range, even when his Optivol is trending up.
-His trigger weight for taking a dose of Lasix is 188 lbs and he weighs 185 lbs today, so will look to establish a new dry weight at d/c.
-No need to repeat echo
-Outpatient dose of Toprol XL 12.5 mg daily has been continued.
-Outpatient dose of Entresto 24/26 mg at HS has been continued, this dose has been lowered over time due to hypotension.
-Outpatient dose of spironolactone has been on hold since admission due to hypotension and ESTEBAN.
-Cre was 1.8 on admission and is a bit better at 1.6 today.
-ECG reviewed by me is v paced
[2024-05-11 09:08] LABS: Glycohemoglobin (HgbA1c) 5.8 % (4.0-5.6)
[2024-05-11 09:18] LABS: Troponin I < 0.012 ng/ml
--- NOTE | 2024-05-11 09:26 | W.PN.HOSP.TC ---
Today's Communication/Plan
-
see bold
Assessment / Plan
Assessment / Plan
Gen: NAD, AAOx3.
Eyes: EOMI, PERRLA, no scleral icterus.
Neck: supple.
CV: RRR, +S1/S2, no m/r/g.
Resp: CTAB, no rales, wheezes, or rhonchi.
Abd: +BS, soft, NT, ND
Skin: No rashes.
MSK: no TTP with sternal palpation
Neuro: CN 2-12 intact, non-focal.
Psych: Normal mood and affect.
CXR: No radiographic evidence of acute cardiopulmonary abnormality.
Worsening CP/SOB:
-h/o NICM
-EKG with AV dual paced rhythm, no acute ischemic changes
-saturating well on RA
-Trop NEG x 4
-c/s cards
Chronic HFmEF:
-proBNP 209
-daily wts, I/Os
-cont Farxiga/Lasix/BB/Entresto
Other problems:
ESTEBAN on CKD3b: aldactone held
h/o recurrent NSVT with ICD: cont Amio/BB
Documented h/o both essential HTN and chronic postural hypotension: Aldactone held, cont BB/Entresto
Hyperlipidemia: cont statin
COPD (h/o tobacco abuse disorder): cont Symbicort
Obstructive sleep apnea: noncompliant with CPAP
Recurrent diverticulitis status post sigmoidectomy
GERD: cont PPI
FULL/Heparin
Anticipated Discharge: Within 24 hours
Subjective/Interval History
-
Date of Service: May 11, 2024
Patient reports pleuritic, retrosternal, pressure-like pain.
Objective Data
-
Labs:
Laboratory Results
05/11/24
04:09
WBC 10.2
Hgb 17.1
Hct 48.7
Plt Count 150
Sodium 135
Potassium 4.4
Chloride 104
Carbon Dioxide 20 L
BUN 38 H
Creatinine 1.6 H
Glucose 128 H
Calcium 9.6
Total Bilirubin 0.7
AST 23
ALT 19
Alkaline Phosphatase 104
Vital Signs:
Vital Signs
Temp Pulse Resp BP Pulse Ox
98.0 F 69 16 111/56 95
05/11/24 03:33 05/11/24 08:46 05/11/24 07:48 05/11/24 08:46 05/11/24 07:48
I&O
05/10/24 05/11/24 05/12/24
06:59 06:59 06:59
Intake Total 480 / 480
Balance 480 / 480
[2024-05-11] MEDS: LASIX 40 MG IV (12:19)
[2024-05-11] MEDS: TYLENOL 650 MG PO (14:56)
[2024-05-11 15:00] VITALS: BP 114/72
--- NOTE | 2024-05-11 16:04 | CM ---
Met with pt at bedside
Pt lives alone in a 1 story town home - no steps to enter
Daughter lives nearby. Mostly independent, no longer drives
DME - rolling walker - does not use
SNF/HH - denies past hx
PCP - [facility]
Pharm - [facility]
CM will follow for d/c needs
Plan - anticipate home no needs vs with VN
[2024-05-11 19:57] VITALS: BP 114/68
[2024-05-11] MEDS: CLARITIN 10 MG PO (21:17)
[2024-05-11 23:48] VITALS: BP 107/70
[2024-05-12 03:12] VITALS: BP 101/59
[2024-05-12 06:00] VITALS: BMI 27.6
[2024-05-12] MEDS: TYLENOL 650 MG PO (07:02)
[2024-05-12 07:42] VITALS: BP 104/68
[2024-05-12] MEDS: PROTONIX 40 MG PO (08:32)
[2024-05-12] MEDS: ASPIR LOW (ENTERIC COATED) 81 MG PO (08:32)
[2024-05-12] MEDS: HEPARIN 5000 UNITS SC ×2 (08:32→19:26)
[2024-05-12] MEDS: PACERONE 200 MG PO (08:32)
[2024-05-12] MEDS: FARXIGA 10 MG PO (08:32)
[2024-05-12] MEDS: MUCINEX 1200 MG PO ×2 (08:32→19:26)
[2024-05-12] MEDS: LIPITOR 40 MG PO (08:32)
[2024-05-12] MEDS: LASIX 40 MG IV (08:33)
[2024-05-12] MEDS: SYMBICORT 160/4.5 MCG INHALER 2 PUFF INH ×2 (08:44→19:23)
[2024-05-12] MEDS: TOPROL XL 12.5 MG PO (08:44)
--- NOTE | 2024-05-12 09:02 | W.PN.CARDCBS ---
Addendum entered and electronically signed by Mendez Todd MD 05/12/24 12:26:
Patient feels about the same
PMH/PSH/SH/FH: Reviewed
Allergies none
Outpatient medications: Reviewed
Current medications amiodarone 200 mg a day, aspirin 81 mg a day, atorvastatin 40 mg a day, Farxiga 10 mg a day, Claritin, metoprolol ER 12.5 mg daily, Protonix, Entresto 1 daily, subcu heparin, furosemide 40 mg a day
ROS: Negative except as above
91/57, 104/68, pulse 75, respirate 16, afebrile, sats 92%
Weight is 82.2 kg, down 1.8 kg, intake and output complete, Head neck exam unremarkable, lungs relatively clear, minimally decreased left base, regular rate and rhythm without obvious murmurs, JVD okay, extremities without much edema, abdomen benign
BUN and creatinine are 45 and 1.8, creatinine was 1.8 on admission, had been 1.07 March 2023
Impression:
Chest pain
SOB, WEBER
Recent admission for chest pain, SOB and acute HF 02/26/24 until 02/27/24
Acute on chronic HFrEF
Nonischemic cardiomyopathy, EF 30-35% by echo 11/13/23
Nonobstructive coronary artery disease by cath 11/03/22
s/p Medtronic FORMING PRESS OPERATOR-D 11/16/23
RV lead revision 11/17/23s/p robotic sigmoidectomy for recurrent diverticulitis on 09/17/2023
Hypertension
Hyperlipidemia
PVCs
Former smoker
COPD
Obstructive sleep apnea, CPAP intolerant
Plan:
Overall he looks about the same, creatinine is up to 1.8, will decrease furosemide., Continue low-dose metoprolol and Entresto.
It has been difficult to optimize GDMT given his hypotension
Daughter Janey does not feel he is ready to leave. Okay to proceed with discharge planning for tomorrow.
Original Note:
Today's Communication / Plan
-
Change to Lasix 20 mg PO MWF
Impression / Plan
-
PCP: Steven Reynolds
Oncology Radiation Physician: Dr. EDGAR Todd
Impression:
Chest pain
SOB, WEBER
Recent admission for chest pain, SOB and acute HF 02/26/24 until 02/27/24
Acute on chronic HFrEF
Nonischemic cardiomyopathy, EF 30-35% by echo 11/13/23
Nonobstructive coronary artery disease by cath 11/03/22
s/p Medtronic FORMING PRESS OPERATOR-D 11/16/23
RV lead revision 11/17/23
s/p robotic sigmoidectomy for recurrent diverticulitis on 09/17/2023
Hypertension
Hyperlipidemia
PVCs
Former smoker
COPD
Obstructive sleep apnea, CPAP intolerant
Nuclear Sestamibi 10/30/22. Mild to moderate-sized, mid intensity defect in the basal, mid, inferior and apical segments. Summed rest score was 4.
Cardiac cath 11/03/2022:�LM: NL; LAD: LI, A [employer] Omni wire was advanced to the distal LAD and the iFR serially measured at/above the ischemic threshold. RAMUS:LI. LCX:LI. RCA: LI.� LVG:Mildly reduced LVEF estimated 45% with moderate global
hypokinesis that is more pronounced in the inferior and anterolateral gallegos
Echo 10/30/22: EF 40-45%,� mild concentric LVH with inferior, anteroseptal, and focal apical hypokinesis. Thickened mitral leaflets w/ trace MR. nl LA. trace AR. nl RV. nl RA. aortic root is 4cm. Similar to December 2021.
Echo 09/16/23: EF 40 to 45%, mild global hypokinesis, stage I diastolic dysfunction, mild MR, trace TR, mildly dilated aortic root at 4.0 cm.
Echo 11/13/23: EF 30-35%, global hypokinesis, mild LVH, trace MR, aortic valve grossly normal, right atrium normal left atrium mildly dilated, RV normal, trace TR
Echo 03/14/24: EF 25 to 30%, global hypokinesis, trace MR, trace TR with PAP 25 to 30 mmHg, compared to previous 11/13/23 study EF is currently 25 to 30% and was previously 30 to 35%
Plan:
-pro-BNP stable, but Optivol was trending up consistent with volume overload. pro-BNP is always in the 200-300 range, even when his Optivol is trending up.
-Weight down 4 lbs with Lasix 40 mg IV daily since admission. Cre 1.8 to 1.6 to 1.8.
-Will consider new dry weight 181 lbs. Prior to admission patient was taking Lasix PRN, but on Thursday he was seen by Dr. Todd in the office and they decided on a regimen of Lasix 20 mg MW. He has previously been intolerant to daily Lasix due to
hypotension.
-Patient thinks SOB is improved. He has a normal pulse ox on room air and slept flat to sleep.
-No need to repeat echo
-Outpatient dose of Toprol XL 12.5 mg daily has been continued.
-Outpatient dose of Entresto 24/26 mg at has been continued with holding parameters for SBP less than 120, this dose has been lowered over time due to hypotension.
-Outpatient dose of spironolactone has been on hold since admission due to hypotension and ESTEBAN. Will resume at d/c
HPI: Patient came to [facility] yesterday with chest pain and SOB and cardiology has been consulted. Patient was seen in the office on 05/11/2024 for symptoms of shortness of breath that had started a few days earlier. He also had a vague chest
discomfort without radiation. Device check showed increased Optivol and there was concern for acute HF because overall this felt similar to recent admission 02/26/24 until 02/27/24 when he had chest pain with serially normal Troponins and evidence of
acute HF on ICD check. During that admission patient symptomatically improved with IV diuresis and was d/c'd to home on Lasix 3 times a week, but that dose was later changed to PRN during office visit 03/03/24 due to hypotension. Hypotension has also
made it difficult to titrate GDMT and EF was down a bit to 25-30% by last echo 03/14/24. Patient has not noticed any weight gain or increased LE edema at home, but feels SOB and has WEBER.
Progress Note - Oncology Radiation Physician
Subjective
Date of Service: May 12, 2024
He thinks SOB has improved
Objective
Labs:
05/11/24 04:09
05/11/24 04:09
Labs
Hgb 17.1 g/dL (13.0-18.0) 05/11/24 04:09
Hct 48.7 % (39.0-52.0) 05/11/24 04:09
Plt Count 150 10^3/uL (130-400) 05/11/24 04:09
Sodium 135 mmol/L (135-145) 05/11/24 04:09
Potassium 4.4 mmol/L (3.5-5.1) 05/11/24 04:09
BUN 38 mg/dl (9-20) H 05/11/24 04:09
Creatinine 1.6 mg/dL (0.7-1.3) H 05/11/24 04:09
Glucose 128 mg/dl (70-99) H 05/11/24 04:09
Troponins
05/10/24 05/11/24 05/11/24
20:35 01:06 04:09
Troponin I < 0.012 < 0.012 < 0.012
05/11/24 05/11/24
07:16 08:23
Troponin I Cancelled < 0.012
Vital Signs and I&O:
Vital Signs
Temp Pulse Resp BP Pulse Ox
97.5 F 74 16 104/68 95
05/12/24 07:42 05/12/24 08:50 05/12/24 08:50 05/12/24 07:42 05/12/24 08:50
Vital Signs
Temp Pulse Resp BP Pulse Ox
97.5 F 74 16 104/68 95
05/12/24 07:42 05/12/24 08:50 05/12/24 08:50 05/12/24 07:42 05/12/24 08:50
Intake & Output
05/10/24 05/11/24 05/12/24 05/13/24
06:59 06:59 06:59 06:59
Intake Total 480 / 480 1460 / 1460
Balance 480 / 480 1460 / 1460
Physical Exam
Physical Exam
GEN: NAD. AAOx3
HEENT: EOMI
LUNGS: No audible wheeze
CV: V paced on tele
ABD: ND
EXT: No edema B/L
NEURO: Gross non-focal
SKIN: No rash
--- NOTE | 2024-05-12 09:23 | W.PN.HOSP.TC ---
Today's Communication/Plan
-
see bold
Assessment / Plan
Assessment / Plan
Gen: NAD, AAOx3.
Eyes: EOMI, PERRLA, no scleral icterus.
Neck: supple.
CV: Remains RRR, +S1/S2, no m/r/g.
Resp: Remain CTAB, no rales, wheezes, or rhonchi.
Abd: +BS, soft, NT, ND
Skin: No rashes.
Neuro: Remain CN 2-12 intact, non-focal.
Psych: Normal mood and affect.
CXR: No radiographic evidence of acute cardiopulmonary abnormality.
Worsening CP/SOB:
-h/o NICM
-EKG with AV dual paced rhythm, no acute ischemic changes
-saturating well on RA
-Trop NEG x 4
-cards following. Case discussed with Dr. EDGAR Kemp.
Chronic HFmEF:
-proBNP 209
-daily wts, I/Os
-cont Farxiga/Lasix/BB/Entresto
Other problems:
ESTEBAN on CKD3b: aldactone held
h/o recurrent NSVT with ICD: cont Amio/BB
Documented h/o both essential HTN and chronic postural hypotension: Aldactone held, cont BB/Entresto
Hyperlipidemia: cont statin
COPD (h/o tobacco abuse disorder): cont Symbicort
Obstructive sleep apnea: noncompliant with CPAP
Recurrent diverticulitis status post sigmoidectomy
GERD: cont PPI
FULL/Heparin
Medically cleared for discharge if okay with cardiology.
Anticipated Discharge: Today
Subjective/Interval History
-
Date of Service: May 12, 2024
Patient complains of pleuritic chest pain.
Objective Data
-
Labs:
Laboratory Results
05/12/24
09:02
Sodium Pending
Potassium Pending
Chloride Pending
Carbon Dioxide Pending
BUN Pending
Creatinine Pending
Glucose Pending
Calcium Pending
Vital Signs:
Vital Signs
Temp Pulse Resp BP Pulse Ox
97.5 F 74 16 104/68 95
05/12/24 07:42 05/12/24 08:50 05/12/24 08:50 05/12/24 07:42 05/12/24 08:50
I&O
05/11/24 05/12/24 05/13/24
06:59 06:59 06:59
Intake Total 480 / 480 1460 / 1460
Balance 480 / 480 1460 / 1460
--- NOTE | 2024-05-12 10:20 | PN.CDI ---
Addendum entered and electronically signed by Bharathi Barnes MD 05/12/24 10:31:
Documentation is complete
Original Note:
CDI
- -
CDI:
Physician Documentation Request
Admit Date: 05/10/24 23:03
Dear Doctor Molly,
Patient admitted for heart failure.
05/11 Cardiology PN: 'Acute on chronic HFrEF...-Patient with stable pro-BNP, but Optivol was trending up during office check 05/09/24 and is trending up again by ER device check last night. Talked with patient and daughter and will diurese with Lasix 40
mg IV daily.'
05/12 Hospitalist PN: 'Chronic HFmEF: -proBNP 209'
Clarify which of the following accurately represents the acuity of the heart failure. Possible options might include:
Acute on chronic
Chronic
Other
Use of terms such as suspected, likely, concern for, or probable (associated with a specific diagnosis that is being evaluated, monitored, or treated as if it exists) are acceptable and can be coded in the inpatient setting, when documented at the
time of discharge.
Thank you,
Giselle Hensley RN, BSN
CDI Specialist
Available via [place] text
Please use your independent medical judgment in providing your response.
[2024-05-12 11:15] VITALS: BP 91/57
[2024-05-12 11:25] LABS: Blood Urea Nitrogen 45 mg/dl (9-20); Calcium 9.6 mg/dl (8.4-10.2); Carbon Dioxide 29 mmol/L (22-30); Chloride 95 mmol/L (98-107); Estimated Creatinine Clearance 32 ml/min; Glucose 112 mg/dl (70-99); Potassium 4.6 mmol/L (3.5-5.1); Sodium 135 mmol/L (135-145); eGFR 37.82
[2024-05-12 15:16] VITALS: BP 114/75
[2024-05-12 19:19] VITALS: BP 101/66
[2024-05-12] MEDS: CLARITIN 10 MG PO (19:27)
[2024-05-12 23:32] VITALS: BP 123/70
[2024-05-13] MEDS: TYLENOL 650 MG PO (00:48)
[2024-05-13 03:08] VITALS: BP 131/68
[2024-05-13 05:50] VITALS: BMI 27.4
[2024-05-13] MEDS: SYMBICORT 160/4.5 MCG INHALER 2 PUFF INH (07:40)
[2024-05-13 07:44] VITALS: BP 93/60
[2024-05-13 08:03] VITALS: BP 116/72
[2024-05-13] MEDS: PROTONIX 40 MG PO (08:05)
[2024-05-13] MEDS: FARXIGA 10 MG PO (08:05)
[2024-05-13] MEDS: LIPITOR 40 MG PO (08:05)
[2024-05-13] MEDS: HEPARIN 5000 UNITS SC (08:05)
[2024-05-13] MEDS: PACERONE 200 MG PO (08:05)
[2024-05-13] MEDS: MUCINEX 1200 MG PO (08:05)
[2024-05-13] MEDS: TOPROL XL 12.5 MG PO (08:05)
--- NOTE | 2024-05-13 08:28 | W.PN.HOSP.TC ---
Addendum entered and electronically signed by Bharathi Barnes MD 05/13/24 13:36:
ESTEBAN has been ruled out
Addendum entered and electronically signed by Bharathi Barnes MD 05/13/24 12:07:
Total time spent on d/c = 31 min. This included today's physical exam, progress note, review of laboratory and diagnostic data, preparation of discharge documents and prescriptions, and discussions about the pt's hospital course and discharge plan
with the patient and other medical records clerk involved in the patient's care.
Original Note:
Today's Communication/Plan
-
see bold
Assessment / Plan
Assessment / Plan
Gen: NAD, AAOx3.
Eyes: EOMI, PERRLA, no scleral icterus.
Neck: supple.
CV: continues to remain RRR, +S1/S2, no m/r/g.
Resp: continues to remain CTAB, no rales, wheezes, or rhonchi.
Abd: +BS, soft, NT, ND
Skin: No rashes.
Neuro: continues to remain CN 2-12 intact, non-focal.
Psych: Normal mood and affect.
CXR: No radiographic evidence of acute cardiopulmonary abnormality.
Worsening CP/SOB:
-h/o NICM
-EKG with AV dual paced rhythm, no acute ischemic changes
-saturating well on RA
-Trop NEG x 4
-cards following.
Chronic HFmEF:
-I have seen no evidence of acute exacerbation of the pt's chronic HFmrEF while hospitalized
-proBNP 209
-daily wts, I/Os
-cont Farxiga/Lasix/BB/Entresto
Other problems:
ESTEBAN on CKD3b: aldactone held
h/o recurrent NSVT with ICD: cont Amio/BB
Documented h/o both essential HTN and chronic postural hypotension: Aldactone held, cont BB/Entresto
Hyperlipidemia: cont statin
COPD (h/o tobacco abuse disorder): cont Symbicort
Obstructive sleep apnea: noncompliant with CPAP
Recurrent diverticulitis status post sigmoidectomy
GERD: cont PPI
FULL/Heparin
Remains medically cleared for discharge.
Anticipated Discharge: Today
Subjective/Interval History
-
Date of Service: May 13, 2024
'I feel better.' Still with sternal pleuritic CP unchanged from prior.
Objective Data
-
Vital Signs:
Vital Signs
Temp Pulse Resp BP Pulse Ox
97.7 F 77 18 116/72 95
05/13/24 07:44 05/13/24 08:03 05/13/24 07:44 05/13/24 08:03 05/13/24 07:44
I&O
05/12/24 05/13/24 05/14/24
06:59 06:59 06:59
Intake Total 1460 / 1460 660 / 660
Balance 1460 / 1460 660 / 660
[2024-05-13 08:41] VITALS: O2SAT 94; O2SAT 97
--- NOTE | 2024-05-13 08:51 | W.PN.CARDCBS ---
Addendum entered and electronically signed by Mendez Todd MD 05/13/24 19:57:
No new complaints
PMH/PSH/SH/FH: Reviewed
Allergies: None
Medications: Reviewed
ROS: Negative except as above
115/73, pulse 79, head neck exam unremarkable lungs diminished but clear, regular rate and rhythm abdomen benign extremities without clubbing cyanosis or edema distal pulses intact, neuro nonfocal
Impression:
Chest pain
SOB, WEBER
Recent admission for chest pain, SOB and acute HF 02/26/24 until 02/27/24
Acute on chronic HFrEF
Nonischemic cardiomyopathy, EF 30-35% by echo 11/13/23
Nonobstructive coronary artery disease by cath 11/03/22
s/p [employer]OR-D 11/16/23
RV lead revision 11/17/23s/p robotic sigmoidectomy for recurrent diverticulitis on 09/17/2023
Hypertension
Hyperlipidemia
PVCs
Former smoker
COPD
Obstructive sleep apnea, CPAP intolerant
Plan:
Stable for discharge.
Follow-up BMP
Outpatient follow-up arranged.
Original Note:
Today's Communication / Plan
-
Continue PO lasix 40mg MWF
Continue Entresto, Toprol.
May consider resuming spironolactone as OP
BMP in 1 week
Follow up arranged
Impression / Plan
-
PCP: Steven Reynolds
Machine Tailer: Dr. EDGAR Todd
Impression:
Chest pain
SOB, WEBER
Recent admission for chest pain, SOB and acute HF 02/26/24 until 02/27/24
Acute on chronic HFrEF
Nonischemic cardiomyopathy, EF 30-35% by echo 11/13/23
Nonobstructive coronary artery disease by cath 11/03/22
s/p [employer] PROFESSOR-D 11/16/23
RV lead revision 11/17/23
s/p robotic sigmoidectomy for recurrent diverticulitis on 09/17/2023
Hypertension
Hyperlipidemia
PVCs
Former smoker
COPD
Obstructive sleep apnea, CPAP intolerant
Nuclear Sestamibi 10/30/22. Mild to moderate-sized, mid intensity defect in the basal, mid, inferior and apical segments. Summed rest score was 4.
Cardiac cath 11/03/2022:�LM: NL; LAD: LI, A [employer] wire was advanced to the distal LAD and the iFR serially measured at/above the ischemic threshold. RAMUS:LI. LCX:LI. RCA: LI.� LVG:Mildly reduced LVEF estimated 45% with moderate global
hypokinesis that is more pronounced in the inferior and anterolateral gallegos
Echo 10/30/22: EF 40-45%,� mild concentric LVH with inferior, anteroseptal, and focal apical hypokinesis. Thickened mitral leaflets w/ trace MR. nl LA. trace AR. nl RV. nl RA. aortic root is 4cm. Similar to December 2021.
Echo 09/16/23: EF 40 to 45%, mild global hypokinesis, stage I diastolic dysfunction, mild MR, trace TR, mildly dilated aortic root at 4.0 cm.
Echo 11/13/23: EF 30-35%, global hypokinesis, mild LVH, trace MR, aortic valve grossly normal, right atrium normal left atrium mildly dilated, RV normal, trace TR
Echo 03/14/24: EF 25 to 30%, global hypokinesis, trace MR, trace TR with PAP 25 to 30 mmHg, compared to previous 11/13/23 study EF is currently 25 to 30% and was previously 30 to 35%
Plan:
-Presented with chest pain and SOB. Concern for acute heart failure with increased Optivol on device check.
-Diuresed this admission w/ IV lasix 40mg daily. Weight down 5lbs, down to 180 lbs 05/13. Creat stable at 1.8.
-Feeling better, ambulating around unit without SOB this AM.
-Continue PO lasix 40mg MWF.
-Echo 03/14/24 with EF 25-30%. Continue medical therapy with Toprol and Entresto. BP stable.
-Spironolactone has been on hold this admission with hypotension and ESTEBAN. May consider resuming as OP as renal function and BP allow.
-Check BMP in 1 week.
-Follow up arranged.
HPI: Patient came to [facility] yesterday with chest pain and SOB and cardiology has been consulted. Patient was seen in the office on 05/11/2024 for symptoms of shortness of breath that had started a few days earlier. He also had a vague chest
discomfort without radiation. Device check showed increased Optivol and there was concern for acute HF because overall this felt similar to recent admission 02/26/24 until 02/27/24 when he had chest pain with serially normal Troponins and evidence of
acute HF on ICD check. During that admission patient symptomatically improved with IV diuresis and was d/c'd to home on Lasix 3 times a week, but that dose was later changed to PRN during office visit 03/03/24 due to hypotension. Hypotension has also
made it difficult to titrate GDMT and EF was down a bit to 25-30% by last echo 03/14/24. Patient has not noticed any weight gain or increased LE edema at home, but feels SOB and has WEBER.
Progress Note - Machine Tailer
Subjective
Date of Service: May 13, 2024
Feeling better. No SOB with ambulation. No significant recurrent chest pain.
Objective
Labs:
05/11/24 04:09
05/12/24 10:22
Labs
Hgb 17.1 g/dL (13.0-18.0) 05/11/24 04:09
Hct 48.7 % (39.0-52.0) 05/11/24 04:09
Plt Count 150 10^3/uL (130-400) 05/11/24 04:09
Sodium 135 mmol/L (135-145) 05/12/24 10:22
Potassium 4.6 mmol/L (3.5-5.1) 05/12/24 10:22
BUN 45 mg/dl (9-20) H 05/12/24 10:22
Creatinine 1.8 mg/dL (0.7-1.3) H 05/12/24 10:22
Glucose 112 mg/dl (70-99) H 05/12/24 10:22
Troponins
05/10/24 05/11/24 05/11/24
20:35 01:06 04:09
Troponin I < 0.012 < 0.012 < 0.012
05/11/24 05/11/24
07:16 08:23
Troponin I Cancelled < 0.012
Vital Signs and I&O:
Vital Signs
Temp Pulse Resp BP Pulse Ox
97.7 F 77 18 116/72 95
05/13/24 07:44 05/13/24 08:03 05/13/24 07:44 05/13/24 08:03 05/13/24 07:44
Vital Signs
Temp Pulse Resp BP Pulse Ox
97.7 F 77 18 116/72 95
05/13/24 07:44 05/13/24 08:03 05/13/24 07:44 05/13/24 08:03 05/13/24 07:44
Intake & Output
05/11/24 05/12/24 05/13/24 05/14/24
06:59 06:59 06:59 06:59
Intake Total 480 / 480 1460 / 1460 660 / 660
Balance 480 / 480 1460 / 1460 660 / 660
Physical Exam
Physical Exam
GEN: NAD. AAOx3
HEENT: EOMI
LUNGS: CTA b/l, no wheezes/rales
CV: Reg, no murmur
EXT: No clubbing, cyanosis, or edema B/L
NEURO: Gross non-focal
SKIN: Warm, dry, no rash
[2024-05-13 10:45] VITALS: BP 114/77; PULSE 76
--- NOTE | 2024-05-13 10:49 | PTOTSP ---
The patient is independent with ambulation and mobility, reports he is at his baseline and offered no concerns regarding mobility upon return home. No PT needs identified at this time, will sign off.
[2024-05-13 11:07] VITALS: BP 115/73
--- NOTE | 2024-05-13 12:17 | CM ---
Case management following for discharge planning
Pt for d/c today
Has ride with family member to home
Discussed IMM
Plan - home no needs
[2024-05-13] MEDS: LASIX 20 MG PO (12:27)
--- NOTE | 2024-05-13 13:09 | PN.CDI ---
CDI
- -
CDI:
Physician Documentation Request
Admit Date: 05/10/24 23:03
Dear Doctor Molly,
Patient admitted for chest pain.
05/13 Hospitalist PN: 'ESTEBAN on CKD3b: aldactone held'
Laboratory Tests
05/10/24 05/11/24 05/12/24
20:35 04:09 10:22
Creatinine 1.8 H 1.6 H 1.8 H
The purpose of this query is not to question medical judgement, but to ensure the accuracy of the conditions reported for your patient.
There is either a lack of clinical support for this condition in the current medical record, or there is a lack of recognized standard criteria to support the condition.
Criteria for ESTEBAN*
1 Increase in serum creatinine by > or = to 0.3 mg/dL (> or = to 26.5 micromol/L) within 48 hours, OR
2 Increase in serum creatinine to > or = to 1.5 times baseline, which is known or presumed to have occurred within 7 days, OR
3 Urine volume < 0.5 nL/kg/hour for six hours
The request is for one of the following:
- Additional documentation to support the condition. Indicate if this is in lieu of what may be considered standard criteria, and/or support why the standard criteria may not be present for this patient.
- A more appropriate diagnosis, reflecting the patient's condition
- ESTEBAN remains a known or suspected condition for this patient and is further supported by (include additional documentation in the medical record)
- ESTEBAN has been ruled out and a more appropriate diagnosis for this patient's condition is .
- Other (please specify)
- Unable to determine
Use of terms such as suspected, likely, concern for, or probable (associated with a specific diagnosis that is being evaluated, monitored, or treated as if it exists) are acceptable and can be coded in the inpatient setting, when documented at the
time of discharge.
Thank you,
Giselle Hensley RN, BSN
CDI Specialist
Available via [place] text
Please use your independent medical judgment in providing your response.
--- NOTE | 2024-05-13 14:22 | W.DCSUMMARY ---
Discharge Summary
Discharge Data
Date of Admission: 05/10/24
Date of Discharge: 05/13/24
-
Pending Results: No
Hospital Course
Primary diagnoses:
Pleuritic chest pain
Secondary diagnoses:
Chronic heart failure with moderately reduced ejection fraction
Chronic kidney disease stage 3b
h/o recurrent nonsustained ventricular tachycardia s/p ICD
Documented h/o both essential hypertension and chronic postural hypotension
Hyperlipidemia
Chronic obstructive pulmonary disease
Obstructive sleep apnea, noncompliant with CPAP
Recurrent diverticulitis status post sigmoidectomy
Gastroesophageal reflux disease
Consults:
Cardiology
Imaging:
CXR: No radiographic evidence of acute cardiopulmonary abnormality.
Hospital course: 78-year-old male who presented with pleuritic chest pain and shortness of breath as outlined in the H&P done on admission. ECG showed AV dual paced rhythm without acute ischemic changes. Patient was saturating well on room air.
Troponins were negative x 4. Chest x-ray did not show any pulmonary edema. The patient was seen by cardiology. His Farxiga/Lasix/beta-rissa/Entresto were continued. His chest pain appeared to be musculoskeletal in origin. I did not see any
evidence of acute exacerbation of the pt's chronic HFmrEF while hospitalized. Patient was discharged in medically stable condition.
Discharge Plan
-
Patient Disposition: Home (Routine Discharge)
Discharge Diagnosis/Procedures: Pleuritic chest pain
Condition: Good
Diet: 2 Gram Sodium and Restrict fluids to 48 oz
Activity: As tolerated
Driving Restrictions: As prior to admission
Blood Work: BMP in 1 week, prescription from PCP
Specialty Instructions: Weigh Daily- Call MD for wt gain/loss 3 lbs overnight/5 lbs in 1 week
Activity Restrictions/Additional Instructions:
Please see your PCP in less than 7 days.
Instructions: *[facility] Heart Failure Instructions
Referrals:
Rekha Cowart PA-C [Specified Professional Personl] - 05/18/24 11:00 am (You have a follow up visit with Dr. Todd's PA, Rekha Cowart, at the [place] office. Please call with questions. )
Steven Hay MD [Family Provider] -
Mendez Todd MD [Active] - 06/10/24 3:00 pm
Prescriptions:
New
loratadine 10 mg Tablet
10 mg PO HS Qty: 0 0RF
furosemide [Lasix] 40 mg tablet
40 mg PO MOWEFR Qty: 15 0RF
Continued
budesonide-formoterol 160-4.5 mcg/actuation Hfa Aerosol Inhaler
2 puff inhalation R BID
pantoprazole 40 mg Tablet,Delayed Release (Dr/Ec)
40 mg PO DAILY 30 Days Qty: 30 0RF
dapagliflozin propanediol [Farxiga] 10 mg Tablet
10 mg PO DAILY Qty: 30 11RF
amiodarone [Pacerone] 200 mg Tablet
200 mg PO DAILY Qty: 0 0RF
guaifenesin 1,200 mg Tablet Extended Release 12hr
1,200 mg PO BID
atorvastatin 40 mg tablet
40 mg PO DAILY
metoprolol succinate 25 mg tablet extended release 24 hr
12.5 mg PO DAILY
Entresto 24-26 mg tablet
1 tab PO HS
aspirin 81 mg capsule
81 mg PO Q48H
Discontinued
levocetirizine [Xyzal] 5 mg Tablet
5 mg PO HS
spironolactone 25 mg Tablet
12.5 mg PO DAILY Qty: 30 11RF
furosemide [Lasix] 20 mg tablet
20 mg PO MOWEFR
Rx Instructions:
Thursday
Discharge Orders:
Discharge Patient (As Directed); Ordered 05/13/24
Ordered By: Bharathi Barnes
Discharge Date and Time
Discharge Date/Time: 05/13/24 13:52
Print Language: HUNGARIAN
--- NOTE | 2024-05-16 11:25 | W.HF.CON ---
Heart Failure
- LV Function
Left ventricular function study result: LV Ejection fraction </= 35% (ECHO 03/14/24)
Ejection Fraction Percentage: 25-30
- ARNI
Patient already on ARNI: Yes
- ACEI/ARB
Patient already on ACEI/ARB: No
Heart Failure ACEI/ARB Not Indicated: Patient ordered/on ARNI
- Beta Ken
Patient already on Evidence Based Beta Ken: Yes
- Mineralocorticord Receptor Antagonist
Patient already on MRA: No
Heart Failure MRA Contraindication: Acute Renal Insufficiency, Hypotension
- SGLT-2 Inhibitor
Patient already on SGLT-2 Inhibitor: Yes
- NYHA CHF Classification
NYHA CHF Classification Level: Class III - Symptoms w/ min exertion, interferes w/ nml daily activity
- ACC/AHA Stage
ACC/AHA Stage: Stage C: Symptomatic Heart Failure
== END 2024-05-13 13:52 | disposition home or self-care (01) ==
LOC: 3 WEST ACU 23:03
PROVIDERS: Emergency Medicine; Physician Assistant Medical; ADMITTING PHYSICIAN Internal Medicine; ATTENDING PHYSICIAN Internal Medicine; EMERGENCY PHYSICIAN Emergency Medicine; FAMILY PHYSICIAN Student in an Organized Health Care Education/Training Program; OTHER PHYSICIAN Nuclear Medicine Nuclear Cardiology
DX: R07.89 Other chest pain (principal); R06.02 Shortness of breath; I42.8 Other cardiomyopathies; I25.10 Atherosclerotic heart disease of native coronary artery without angina pectoris; I13.0 Hypertensive heart and chronic kidney disease with heart failure and stage 1 through stage 4 chronic kidney disease, or unspecified chronic kidney disease; J44.9 Chronic obstructive pulmonary disease, unspecified; I95.1 Orthostatic hypotension; E66.9 Obesity, unspecified; E78.00 Pure hypercholesterolemia, unspecified; G47.33 Obstructive sleep apnea (adult) (pediatric); K21.9 Gastro-esophageal reflux disease without esophagitis; N18.32 Chronic kidney disease, stage 3b; I50.22 Chronic systolic (congestive) heart failure; Z82.49 Family history of ischemic heart disease and other diseases of the circulatory system; Z79.51 Long term (current) use of inhaled steroids; Z79.82 Long term (current) use of aspirin; Z95.0 Presence of cardiac pacemaker; Z79.84 Long term (current) use of oral hypoglycemic drugs; Z68.27 Body mass index [BMI] 27.0-27.9, adult; Z91.199 Patient's noncompliance with other medical treatment and regimen due to unspecified reason; Z90.49 Acquired absence of other specified parts of digestive tract; Z87.891 Personal history of nicotine dependence
CPT/HCPCS: 71046; 80048; 80053; 83036; 83880; 84484; 85025; 93005; 94640; 94761; 97161; 99285; G0378

== ENCOUNTER → 2024-05-20 10:46 | Outpatient (REF) | payer OTHER, SELFPAY ==
[2024-05-20 13:17] LABS: Blood Urea Nitrogen 23 mg/dl (9-20); Calcium 8.9 mg/dl (8.4-10.2); Carbon Dioxide 22 mmol/L (22-30); Chloride 104 mmol/L (98-107); Glucose 105 mg/dl (70-99); Potassium 4.4 mmol/L (3.5-5.1); Sodium 136 mmol/L (135-145); eGFR 55.88
== END ==
LOC: HWLAB 10:46
PROVIDERS: ATTENDING PHYSICIAN Physician Assistant Medical; FAMILY PHYSICIAN Family Medicine
DX: I42.8 Other cardiomyopathies (principal)
CPT/HCPCS: 36415; 80048

== ENCOUNTER → 2024-05-23 16:00 | Outpatient (REF) | payer OTHER, SELFPAY ==
[2024-05-23 17:29] LABS: NT-proBNP 293 pg/ml
== END ==
LOC: REG 16:00
PROVIDERS: ATTENDING PHYSICIAN Internal Medicine Cardiovascular Disease; FAMILY PHYSICIAN Student in an Organized Health Care Education/Training Program
DX: R07.89 Other chest pain (principal); I10 Essential (primary) hypertension; I25.10 Atherosclerotic heart disease of native coronary artery without angina pectoris
CPT/HCPCS: 36415; 83880

== ENCOUNTER → 2024-10-13 10:54 | Outpatient (REF) | payer OTHER, SELFPAY ==
[2024-10-13 12:35] LABS: % Basophils 0.4 % (0-2); % Eosinophils 3.9 % (0-6); % Immature Granulocytes 0.4 % (0-0.5); % Lymphocytes 17.1 % (20.5-51.1); % Monocytes 7.8 % (1.7-9.3); % Neutrophils 70.4 % (42.2-75.2); Absolute Eosinophils 0.3 10^3/uL (0-0.7); Absolute Lymphocytes 1.2 10^3/uL (1.2-3.4); Absolute Monocytes 0.5 10^3/uL (0.1-0.6); Absolute Neutrophils 4.9 10^3/uL (1.4-6.5); Hematocrit 55.1 % (39.0-52.0); Hemoglobin 18.5 g/dL (13.0-18.0); Mean Corp Hgb Conc. 33.6 g/dL (33.0-37.0); Mean Corpuscular Hgb 29.1 pg (27.0-31.0); Mean Corpuscular Volume 86.6 fL (80.0-94.0); Mean Platelet Volume 10.6 fL (7.4-10.4); Nucleated Red Blood Cells % 0 % (-); Platelet Count 143 10^3/uL (130-400); Red Blood Cell Count 6.36 10^6/uL (4.70-6.10); Red Cell Dist. Width 14.6 % (11.5-14.5); White Blood Cell Count 6.9 10^3/uL (4.8-10.8)
[2024-10-13 13:17] LABS: ALT (SGPT) 21 U/L (0-50); AST (SGOT) 26 U/L (17-59); Albumin 4.7 g/dl (3.5-5.0); Alkaline Phosphatase 99 U/L (38-126); Blood Urea Nitrogen 28 mg/dl (9-20); Calcium 8.9 mg/dl (8.4-10.2); Carbon Dioxide 26 mmol/L (22-30); Chloride 103 mmol/L (98-107); Glucose 108 mg/dl (70-99); HDL Cholesterol 51 mg/dl; LDL Cholesterol, Calculated 65 mg/dl; Potassium 4.6 mmol/L (3.5-5.1); Sodium 140 mmol/L (135-145); Total Cholesterol 148 mg/dl (50-199); Total Protein 7.2 g/dl (6.3-8.2); Triglyceride 160 mg/dl (10-149); Very Low Density Lipoprotein 32 mg/dl (0-30); eGFR 50.81
== END ==
LOC: RAD 10:54
PROVIDERS: ATTENDING PHYSICIAN Nurse Practitioner Family
DX: M25.562 Pain in left knee (principal); G89.29 Other chronic pain; M25.552 Pain in left hip
CPT/HCPCS: 36415; 73502; 73564; 80053; 80061; 85025

== ENCOUNTER → 2024-11-11 08:16 | Outpatient (REF) | payer OTHER, SELFPAY | LOC: REG 08:16 | PROVIDERS: ATTENDING PHYSICIAN Internal Medicine Cardiovascular Disease; FAMILY PHYSICIAN Family Medicine | DX: I50.20 Unspecified systolic (congestive) heart failure (principal) | CPT/HCPCS: 36415; 71046; 84443 ==

== ENCOUNTER → 2024-11-17 08:00 | Outpatient (REF) | payer OTHER, SELFPAY ==
[2024-11-17 11:05] LABS: Free T3 3.54 pg/ml (2.77-5.27); Free T4 0.94 ng/dl (0.78-2.19)
== END ==
LOC: REG 08:00
PROVIDERS: ATTENDING PHYSICIAN Internal Medicine Cardiovascular Disease
DX: Z79.899 Other long term (current) drug therapy (principal)
CPT/HCPCS: 36415; 84439; 84481

== ENCOUNTER → 2025-02-03 10:02 | Outpatient (REF) | payer OTHER, SELFPAY ==
[2025-02-03 13:10] LABS: Free T3 3.23 pg/ml (2.77-5.27); Free T4 0.99 ng/dl (0.78-2.19)
== END ==
LOC: REG 10:02
PROVIDERS: ATTENDING PHYSICIAN Internal Medicine Cardiovascular Disease; FAMILY PHYSICIAN Family Medicine
DX: Z79.899 Other long term (current) drug therapy (principal)
CPT/HCPCS: 36415; 84439; 84481

== ENCOUNTER 2025-05-09 12:21 | Inpatient (IN) | payer OTHER, SELFPAY ==
[2025-05-09] VITALS (86 sets, daily range): BP systolic 76–163; BP diastolic 38–117; BMI 32.0; BMI 31.7
[2025-05-09 04:03] LABS: Hematocrit 49.3 % (39.0-52.0); Hemoglobin 16.4 g/dL (13.0-18.0); Mean Corp Hgb Conc. 33.3 g/dL (33.0-37.0); Mean Corpuscular Volume 89.8 fL (80.0-94.0); Nucleated Red Blood Cells % 0 % (-); Platelet Count 153 10^3/uL (130-400); Red Cell Dist. Width 14.3 % (11.5-14.5)
[2025-05-09 04:33] LABS: ALT (SGPT) 23 U/L (0-50); AST (SGOT) 22 U/L (17-59); Albumin 4.0 g/dl (3.5-5.0); Alkaline Phosphatase 100 U/L (38-126); Blood Urea Nitrogen 24 mg/dl (9-20); Calcium 8.6 mg/dl (8.4-10.2); Carbon Dioxide 26 mmol/L (22-30); Chloride 107 mmol/L (98-107); Estimated Creatinine Clearance 36 ml/min; Glucose 103 mg/dl (70-99); Potassium 4.3 mmol/L (3.5-5.1); Sodium 140 mmol/L (135-145); Total Protein 6.3 g/dl (6.3-8.2); eGFR 37.58
[2025-05-09 04:45] LABS: Troponin I 0.020 ng/ml
--- NOTE | 2025-05-09 06:14 | ED.GENMED ---
History of Present Illness
<Terry Gomez MD, Resident - Last Filed: 05/09/25 11:11>
General
Chief Complaint: Chest Pain
Source: patient and family
Time Seen by Provider: 05/09/25 06:03
Nursing documentation reviewed up to this point in time: agreed with
History of Present Illness
History of Present Illness:
79 year old male with a past medical history of cHFw/moderately reduced ejection fraction, CKD 3b, ventricular tachycardia w/ pacemaker, COPD and sleep apnea comes to the ED due to chest pain that begam around 11pm last night. He states that the
chest pain is right in the middle of his sternum and has been radiating down his left arm as well. He states that the pain worsens with deep inspiration and it is hard for him to breathe now. He does not report any cough, fever or chills and does
not have any heart palpatations. He was given Nitroglycerine which did not seem to help with his pain. He says that he has been ambulating by himself regularly and does not have any calf pain or leg swelling. He states that his left arm hurts when
he moves it.
Past History
<Terry Gomez MD, Resident - Last Filed: 05/09/25 11:11>
Past History
ED Past Medical History: Arrthythmia (Non-sustained Ventricular Tachycardia w/ Pacemaker), CHF (moderately reduced ejection fraction), COPD, HTN and Hypercholesterolemia
ED Past Surgical History: Orthopedic; Negative Cardiac (cath 10/2022)
Social History
Tobacco: Former smoker
Alcohol: None
Drug: None
Personal:
Living: with family
Employment: Retired
Family History
Family History: Hypertension
Review of Systems
<Terry Gomez MD, Resident - Last Filed: 05/09/25 11:11>
Review of Systems
Allergies reviewed?: Yes
Other source history: family
Constitutional: Denies fever, fatigue or chills
EENT: Reports no symptoms
Respiratory: Reports trouble breathing; Denies cough
Cardiac: Reports chest pain; Denies diaphoresis or palpitations
ABD/GI: Reports no symptoms
: Reports no symptoms
Musculoskeletal: Reports other (left arm pain)
Skin: Reports no symptoms
Neurological: Reports no symptoms
Endocrine: Reports no symptoms
Hematologic/Lymphatic: Reports no symptoms
Psychiatric: Reports no symptoms
Phy Exam
<Terry Gomez MD, Resident - Last Filed: 05/09/25 11:11>
General Physical Exam
General Presentation: mild distress
General age: appears stated age
General Skin: warm and dry
General Habitus: normal
General Mental: alert
General Hydration: appears well hydrated
Cardiovascular Exam
Cardiovascular Exam: regular rate/rhythm, no edema, no murmur and pacemaker
Pulmonary Exam
Pulmonary Exam: lungs clear, no respiratory distress, no rales, no crackles, no rhonchi, no wheezing and no cough
Gastrointestinal Exam
Gastrointestinal Exam: non tender, soft and non distended
Musculoskeletal Exam
Musculoskeletal Exam: full ROM and no edema
Scores
<Terry Gomez MD, Resident - Last Filed: 05/09/25 11:11>
Heart Score for Chest Pain Patients
STEMI patient?: No
History: Moderately Suspicious
ECG: Normal
Age: >/= 65 years
Risk Factors: >/= 3 Risk Factors or History of CAD
Troponin: </= Normal Limit
Heart Score for Chest Pain Patients: 5
Heart Score Risk: 20.3% MACE over next 6 weeks
<Shiraz Carter, DO - Last Filed: 05/09/25 09:51>
Heart Score for Chest Pain Patients
Heart Score for Chest Pain Patients: 5
Heart Score Risk: 20.3% MACE over next 6 weeks
Course
<Terry Gomez MD, Resident - Last Filed: 05/09/25 11:11>
Orders/Labs/Results
Orders:
Orders
05/09/25 03:40
Electrocardiogram (*1) Urgent
Reason for Study: Chest Pain
Cardiac Monitoring- Treatment ONCE
EKG- Treatment ONCE
IV Insert/Care/Rem.- Treatment PRN
O2 Therapy [RESP] Urgent
Titrate/Wean O2 to maintain O2 sat greater than (%): 90
Special Instructions: Maintain sats >/=90%
Pulse Ox/spot Check [RESP] Urgent
Quantity: 1
Special Instructions: ON ROOM AIR
05/09/25 03:53
Complete Blood Count/With Diff Urgent
Comprehensive Metabolic Panel Urgent
Lipase Urgent
NT-proBNP Urgent
Comment: ADD ON
Troponin I Urgent
05/09/25 03:54
Interrogated [Interrogate Pacemaker- Treatment] ONCE
05/09/25 06:10
CR Chest - 2 Views Urgent
Comment:
Reason For Exam: sob chf
05/09/25 06:11
Add On- LAB Urgent
Tests Added?: pBNP
05/09/25 07:12
EKG [Electrocardiogram (*1)] Urgent
Reason for Study: Other
Other Reason for Exam: repeat troponin, +chest pain
05/09/25 07:13
EKG- Treatment ONCE
05/09/25 07:15
Troponin I Urgent
05/09/25 07:32
Ketorolac [Toradol] 15 mg IV NOW STA
05/09/25 08:14
Acetaminophen [Tylenol] 650 mg PO NOW STA
05/09/25 08:17
Nitroglycerin Sublingual [Nitrostat (Sublingual)] 0.4 mg SL [id number] PRN
05/09/25 08:36
CT Chest PE Study Stat
Comment:
Reason For Exam: sob low BP
0.9% Sodium Chloride 1000 ml [Nss] 1,000 ml IV BOLUS
05/09/25 08:37
Morphine Sulfate 4 mg IV NOW STA
05/09/25 08:40
CARDIOLOGY CONSULT Urgent
Consulting Provider: Mason Ohara
Was physician already notified: Yes
05/09/25 08:56
Ondansetron HCl [Zofran] 4 mg PO NOW STA
05/09/25 09:00
Ondansetron Injectable [Zofran] 4 mg IV NOW STA
05/09/25 10:30
0.9% Sodium Chloride 1000 ml [Nss] 1,000 ml IV 200 mls/hr
NORepinephrine 4 MG/250 ML [Levophed] 4 mg in 250 ml IV PER PROTOCOL
Initial dose in mcg/min, then titrate:: 2
Titrate to keep:: SBP > 90 mmHg
Titrate by mcg/min:: 1-2 mcg/min
Frequency of titrations (minutes):: 5
Maximum dose in ICU in mcg/min:: 30
Maximum dose in IMU in mcg/min:: 8
Maximum dose in IVU in mcg/min:: 4
Begin to taper infusion when:: Remained at goal for 4hrs
Taper by mcg/min:: 1-2 mcg/min
Frequency of taper (minutes) if patient maintains goal:: 30
Taper to off?: Yes
If infusion off & no longer maintaining goal:: Contact Provider
05/09/25 10:41
Morphine Sulfate 4 mg IV NOW STA
05/09/25 10:43
Echo 2D MMode Color/Doppler Stat
Reason for Study: cp
05/09/25 10:47
Add On- LAB Urgent
Tests Added?: lipase
Rectal Temp- Treatment ONCE
05/09/25 11:15
Lactic Acid Q4H
Comment: CANCEL 2nd LACTIC ACID IF 1st LACTIC ACID IS LESS THAN 2
Blood Culture Q30M
JULIA Source: Blood/Venous
Specimen Description:
05/09/25 11:45
Blood Culture Q30M
JULIA Source: Blood/Venous
Specimen Description:
05/09/25 15:15
Lactic Acid Q4H
Comment: CANCEL 2nd LACTIC ACID IF 1st LACTIC ACID IS LESS THAN 2
Abnormal Lab Results
05/09/25
03:53
WBC 11.1 H 10^3/uL
(4.8-10.8)
MPV 10.8 H fL
(7.4-10.4)
Abs Immat Gran (auto) 0.1 H 10^3/uL
(0-0.05)
Absolute Neuts (auto) 7.9 H 10^3/uL
(1.4-6.5)
Absolute Monos (auto) 0.8 H 10^3/uL
(0.1-0.6)
Immature Gran % 0.6 H %
(0-0.5)
Lymphocytes % 17.1 L %
(20.5-51.1)
BUN 24 H mg/dl
(9-20)
Creatinine 1.8 H mg/dL
(0.7-1.3)
Glucose 103 H mg/dl
(70-99)
05/09/25 03:53
05/09/25 03:53
Vital Signs
Initial and Last Documented VS:
Initial Vital Signs
Temp Pulse Resp BP Pulse Ox
98.1 F 80 22 123/81 93
05/09/25 03:42 05/09/25 03:42 05/09/25 03:42 05/09/25 03:42 05/09/25 03:42
Last Documented Vital Signs
Temp Pulse Resp BP Pulse Ox
97.5 F 74 12 90/57 86
05/09/25 11:02 05/09/25 09:45 05/09/25 09:45 05/09/25 09:45 05/09/25 09:45
<Shiraz Carter, DO - Last Filed: 05/09/25 09:51>
Orders/Labs/Results
Orders:
Orders
05/09/25 03:40
Electrocardiogram (*1) Urgent
Reason for Study: Chest Pain
Cardiac Monitoring- Treatment ONCE
EKG- Treatment ONCE
IV Insert/Care/Rem.- Treatment PRN
O2 Therapy [RESP] Urgent
Titrate/Wean O2 to maintain O2 sat greater than (%): 90
Special Instructions: Maintain sats >/=90%
Pulse Ox/spot Check [RESP] Urgent
Quantity: 1
Special Instructions: ON ROOM AIR
05/09/25 03:53
Complete Blood Count/With Diff Urgent
Comprehensive Metabolic Panel Urgent
Lipase Urgent
NT-proBNP Urgent
Comment: ADD ON
Troponin I Urgent
05/09/25 03:54
Interrogated [Interrogate Pacemaker- Treatment] ONCE
05/09/25 06:10
CR Chest - 2 Views Urgent
Comment:
Reason For Exam: sob chf
05/09/25 06:11
Add On- LAB Urgent
Tests Added?: pBNP
05/09/25 07:12
EKG [Electrocardiogram (*1)] Urgent
Reason for Study: Other
Other Reason for Exam: repeat troponin, +chest pain
05/09/25 07:13
EKG- Treatment ONCE
05/09/25 07:15
Troponin I Urgent
05/09/25 07:32
Ketorolac [Toradol] 15 mg IV NOW STA
05/09/25 08:14
Acetaminophen [Tylenol] 650 mg PO NOW STA
05/09/25 08:17
Nitroglycerin Sublingual [Nitrostat (Sublingual)] 0.4 mg SL [id number] PRN
05/09/25 08:36
CT Chest PE Study Stat
Comment:
Reason For Exam: sob low BP
0.9% Sodium Chloride 1000 ml [Nss] 1,000 ml IV BOLUS
05/09/25 08:37
Morphine Sulfate 4 mg IV NOW STA
05/09/25 08:40
CARDIOLOGY CONSULT Urgent
Consulting Provider: Mason Ohara
Was physician already notified: Yes
05/09/25 08:56
Ondansetron HCl [Zofran] 4 mg PO NOW STA
05/09/25 09:00
Ondansetron Injectable [Zofran] 4 mg IV NOW STA
05/09/25 10:30
0.9% Sodium Chloride 1000 ml [Nss] 1,000 ml IV 200 mls/hr
NORepinephrine 4 MG/250 ML [Levophed] 4 mg in 250 ml IV PER PROTOCOL
Initial dose in mcg/min, then titrate:: 2
Titrate to keep:: SBP > 90 mmHg
Titrate by mcg/min:: 1-2 mcg/min
Frequency of titrations (minutes):: 5
Maximum dose in ICU in mcg/min:: 30
Maximum dose in IMU in mcg/min:: 8
Maximum dose in IVU in mcg/min:: 4
Begin to taper infusion when:: Remained at goal for 4hrs
Taper by mcg/min:: 1-2 mcg/min
Frequency of taper (minutes) if patient maintains goal:: 30
Taper to off?: Yes
If infusion off & no longer maintaining goal:: Contact Provider
05/09/25 10:41
Morphine Sulfate 4 mg IV NOW STA
05/09/25 10:43
Echo 2D MMode Color/Doppler Stat
Reason for Study: cp
05/09/25 10:47
Add On- LAB Urgent
Tests Added?: lipase
Rectal Temp- Treatment ONCE
05/09/25 11:15
Lactic Acid Q4H
Comment: CANCEL 2nd LACTIC ACID IF 1st LACTIC ACID IS LESS THAN 2
Blood Culture Q30M
JULIA Source: Blood/Venous
Specimen Description:
05/09/25 11:45
Blood Culture Q30M
JULIA Source: Blood/Venous
Specimen Description:
05/09/25 15:15
Lactic Acid Q4H
Comment: CANCEL 2nd LACTIC ACID IF 1st LACTIC ACID IS LESS THAN 2
Abnormal Lab Results
05/09/25
03:53
WBC 11.1 H 10^3/uL
(4.8-10.8)
MPV 10.8 H fL
(7.4-10.4)
Abs Immat Gran (auto) 0.1 H 10^3/uL
(0-0.05)
Absolute Neuts (auto) 7.9 H 10^3/uL
(1.4-6.5)
Absolute Monos (auto) 0.8 H 10^3/uL
(0.1-0.6)
Immature Gran % 0.6 H %
(0-0.5)
Lymphocytes % 17.1 L %
(20.5-51.1)
BUN 24 H mg/dl
(9-20)
Creatinine 1.8 H mg/dL
(0.7-1.3)
Glucose 103 H mg/dl
(70-99)
05/09/25 03:53
05/09/25 03:53
Vital Signs
Initial and Last Documented VS:
Initial Vital Signs
Temp Pulse Resp BP Pulse Ox
98.1 F 80 22 123/81 93
05/09/25 03:42 05/09/25 03:42 05/09/25 03:42 05/09/25 03:42 05/09/25 03:42
Last Documented Vital Signs
Temp Pulse Resp BP Pulse Ox
97.5 F 74 12 90/57 86
05/09/25 11:02 05/09/25 09:45 05/09/25 09:45 05/09/25 09:45 05/09/25 09:45
<Terry Gomez MD, Resident - Last Filed: 05/09/25 11:11>
MDM/Problems Addressed
Differential Diagnosis Includes:
ACS, Pulmonary Embolism, CHF Exacerbation, Pneumonia, Pleuritis
MDM/Problems Addressed:
79 year old male with a past medical history of CHF with moderately reduced ejection fraction, ventricular tachycardia w/ pace maker came in with chest pain that started around 11pm last night as per his family.
Initial EKG was unremarkable and showed paced rhythm
Troponin on the borderline
Will get Chest X-Ray, and repeat Trop/EKG
Will check proBNP to check for any exacerbation in CHF
Some leukocytosis noted on CBC which may be due to acute infection vs reactive
Chest X-Ray did not show any acute cardiopulmonary process
Patient continues to have worsening chest pain that is diffuse around the chest and worse with inspiration
May be due to pleuritic chest pain so will try giving 15mg IV Toradol to help with the pain
proBNP and troponin unremarkable. Less suspicion for CHF exacerbation
Patient continues to have pain, and now developing nausea. There is concern for a PE so will get CT Chest PE study
Due to increased pain, was started on Morphine
Will give Zofran for his nausea
Cardiology consulted due to patient's history of CHF and ventricular tachycardia
Pain is not resolving and patient's BP decreasing and O2 requirements increasing
Due to persistent hypotension, patient started on Levophed
Getting Echo now
Will be admitting patient due to persistent chest pain and hypotension requiring pressors
Chronic conditions affecting care: Arrhythmia, COPD and Other (CHF)
<Terry Gomez MD, Resident - Last Filed: 05/09/25 11:11>
*Pulse Oximetry
SaO2: 94
Oxygen Mode of Delivery: Room air
Patient hypoxic: no
*Critical Care Note
Total Time (30-74mins, 75-104mins- exclusive of procedures): Not Applicable
<Shiraz Carter, DO - Last Filed: 05/09/25 09:51>
*Critical Care Note
Total Time (30-74mins, 75-104mins- exclusive of procedures): 32
<Shiraz Carter, DO - Last Filed: 05/09/25 09:51>
Update Note
Update Note:
9:50 AM update no PE per radiology
ED Attending Note
<Terry Gomez MD, Resident - Last Filed: 05/09/25 11:11>
-
Portions of this chart may have been created with voice recognition software.� Occasional wrong word or��sound alike� substitutions may have occurred due to the inherent limitations of voice recognition software.
<Shiraz Carter, DO - Last Filed: 05/09/25 09:51>
ED Attending Note
Patient seen and examined by attending physician: Yes
I performed a history and physical exam of patient and discussed management with resident, I reviewed resident's note and agree with documented findings and plan of care.: Yes
ED Attending Note:
Seen with resident examined independently 79-year-old male nonischemic cardiomyopathy on diuretic presents with chest pain shortness of breath borderline sats,
Update 830, persistent pain, OptiVol low, proBNP low chest x-ray noted troponins flat prior cath report noted nonobstructive CAD with negative IFR, will try nitrates, prior to getting nitrates patient dropped his pressure into the 80s and 90s, this
point believe will be prudent to check CT of the chest rule out PE or dissection cardiology has been consulted,
Discharge Plan
Departure
Patient Disposition: Admit
Date of Disposition: 05/09/25
Time of Disposition: 11:09
Admit to: IMU
Presentation/result/management discussed w/ accepting MD/DO: Hospitalist
Patient with high blood pressure during this ER visit?: No
Condition: Serious
Discharge Problem:
Chest pain made worse by breathing, Hypotension, unspecified
Prescriptions:
No Action
budesonide-formoterol 160-4.5 mcg/actuation Hfa Aerosol Inhaler
2 puff inhalation R BID
pantoprazole 40 mg Tablet,Delayed Release (Dr/Ec)
40 mg PO DAILY 30 Days Qty: 30 0RF
dapagliflozin propanediol [Farxiga] 10 mg Tablet
10 mg PO DAILY Qty: 30 11RF
amiodarone [Pacerone] 200 mg Tablet
200 mg PO DAILY Qty: 0 0RF
guaifenesin 1,200 mg Tablet Extended Release 12hr
1,200 mg PO BID
atorvastatin 40 mg tablet
40 mg PO DAILY
metoprolol succinate 25 mg tablet extended release 24 hr
12.5 mg PO DAILY
Entresto 24-26 mg tablet
1 tab PO HS
aspirin 81 mg capsule
81 mg PO Q48H
loratadine 10 mg Tablet
10 mg PO HS Qty: 0 0RF
furosemide [Lasix] 40 mg tablet
40 mg PO MOWEFR Qty: 15 0RF
Referrals:
Ivon Cotto NP [Family Provider, Family Practice]
Interventions
Interventions:
*Risk Screen - Suicide Last Done: 05/09/25 03:42
*General Assessment Last Done: 05/09/25 03:42
*Neglect/Abuse Screening Last Done: 05/09/25 03:52
*ED- Fall Risk Assessment Last Done: 05/09/25 03:42
*ED COVID-19 Vaccine History Last Done: 05/09/25 03:42
ED- Cardiac Assessment Last Done: 05/09/25 04:00
Discharge Date and Time
Print Language: ETHIOPIAN
[2025-05-09] MEDS: TORADOL 15 MG IV (07:39)
[2025-05-09 07:46] LABS: Troponin I 0.017 ng/ml
[2025-05-09] MEDS: MORPHINE SULFATE 4 MG IV ×2 (08:45→10:45)
[2025-05-09] MEDS: NSS 1000 IV ×2 (08:45→10:30)
[2025-05-09] MEDS: ZOFRAN 4 MG IV (09:03)
[2025-05-09] MEDS: LEVOPHED 250 IV (10:50)
--- NOTE | 2025-05-09 11:06 | CON.CAR ---
Addendum entered and electronically signed by Mason Ohara MD 05/09/25 14:29:
I saw and examined the patient.
The BUSINESS DATABASE ANALYST or PA's note was reviewed and I agree with the note.
Comment: General: Well developed, well nourished in NAD.
Neck: Supple, no JVD, HJR, carotids +2 B/L, no bruits bilaterally.
Heart: Non displaced PMI, RRR, no murmurs, No S3, S4, no rubs.
Lungs: Scattered rhonchi
Extremities: No clubbing, cyanosis or edema bilaterally.
Neuro: Grossly nonfocal, awake, alert and oriented x3.
Angel has a history of nonobstructive CAD, cardiomyopathy, sick sinus syndrome status post pacer, hypertension, hyperlipidemia. He presents with complaints of chest pain for several hours. There is no relief except with morphine. Of note he was
hypotensive and was started on Levophed. Echocardiogram was unchanged with ejection fraction of 30 to 35%. Of note troponins were minimally elevated but decreasing.
Etiology of chest discomfort is unclear. Troponins are decreasing and echocardiogram is unchanged. He will be admitted. Hopefully Levophed can be weaned off. Pulmonary has been consulted. Doubtful cardiac etiology with decreasing troponins and
persistent pain. Of note pacer check was okay.
Original Note:
Consultation
Consultation Request
Date/Time Consultation Requested: 05/09/2025
Date/Time Consultation Performed: 05/09/2025
Requesting Provider: Dr. Carter
Performing Provider: Dr. Ohara
Reason for Consultation: Chest pain, hypotension
Medical History
-
History of Present Illness:
Patient came to the ER very early this morning with complaints of chest pain that started last night and cardiology is consulted. Patient says he had a normal day yesterday and then later at night started with a pain that radiated across his chest
that felt like a bandlike tightness. Pain sometimes radiates down his arms, but nothing up to the neck or jaw. The pain is constant and is worse with a deep breath. He has never had pain like this before. Patient came to the ER at about 2:00
this morning with ongoing pain and the only thing that has made his pain better is morphine. Patient states that morphine relieves the pain and he then falls asleep and when he awakens the pain is back. No recent illness and he specifically denies
any fevers or chills. His WBC count was 11.1. His initial troponin was 0.02 and then 0.017. ECG is a paced rhythm. CT of chest was negative for PE. No mention of pericardial effusion on CT chest. Patient was given NTG SL without improvement in
chest pain. By review of MAR it looks like nitro gtt was ordered, but never administered and I confirmed this with nursing. Nitro gtt was never started due to hypotension and patient instead started on Levophed.
PMH:
Nonobstructive coronary artery disease by cath 11/03/22
negative iFR assessment of distal LAD lesion
Chronic HFrEF
Nonischemic cardiomyopathy, EF 25-30% by echo 03/14/24
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
RV lead revision 11/17/23
s/p robotic sigmoidectomy for recurrent diverticulitis on 09/17/2023
Hypertension
Hyperlipidemia
PVCs
Former smoker
COPD
Obstructive sleep apnea, CPAP intolerant
Past Medical History
Past Medical History: Other
Past Surgical History: Bowel Resection (Robotic sigmoidectomy September 2023), Orthopedic (Right knee arthroscopy, foot and bilateral hand surgery) and Other (Herniorrhaphy)
Social History
Tobacco: Former Smoker
Alcohol: None
Drug: None
Personal:
Living: With Family (Lives with daughter Effie)
Employment: Retired
Family History
Family History: CAD and Diabetes
Allergies / Home Medications
Allergy/AdvReac Type Severity Reaction Status Date / Time
No Known Allergies Allergy Verified 05/09/25 03:38
�Medication �Instructions �Recorded �Confirmed �Type
budesonide-formoterol HFA 160 2 puff inhalation R BID 10/05/22 05/10/24 History
mcg-4.5 mcg/actuation aerosol Lung/breathing issues
inhaler
pantoprazole 40 mg tablet,delayed 40 mg PO DAILY Gastrointestinal 08/27/23 05/10/24 Rx
release issue 30 days #30 tabs
dapagliflozin propanediol 10 mg 10 mg PO DAILY Heart Failure #30 11/19/23 05/10/24 Rx
tablet (Farxiga) tabs
amiodarone 200 mg tablet (Pacerone) 200 mg PO DAILY #0 tabs 02/27/24 05/10/24 Rx
aspirin 81 mg capsule 81 mg PO Q48H Blood Clot 05/10/24 05/10/24 History
Prevention/Tx
atorvastatin 40 mg tablet 40 mg PO DAILY High Cholesterol 05/10/24 05/10/24 History
guaifenesin 1,200 mg tablet, 1,200 mg PO BID congestion/cough 05/10/24 05/10/24 History
extended release 12 hr
metoprolol succinate 25 mg 12.5 mg PO DAILY Blood Pressure 05/10/24 05/10/24 History
tablet,extended release 24 hr
sacubitril 24 mg-valsartan 26 mg 1 tab PO HS Heart Failure 05/10/24 05/10/24 History
tablet (Entresto)
furosemide 40 mg tablet (Lasix) 40 mg PO MOWEFR #15 tabs 05/13/24 Rx
loratadine 10 mg tablet 10 mg PO HS #0 tabs 05/13/24 Rx
Review of Systems
-
History Source: Patient and Family (daughter sitting bedside and helping with HPI)
All other systems: Negative unless noted
Physical Exam
Vital Signs
Temp Pulse Resp BP Pulse Ox
97.5 F 74 12 90/57 86
05/09/25 11:02 05/09/25 09:45 05/09/25 09:45 05/09/25 09:45 05/09/25 09:45
GEN: NAD. AAOx3
HEENT: EOMI, MMM
LUNGS: RA. CTA B/L without wheeze
CV: A sensed and V paced on tele. Reg, S1/S2, no murmur
ABD: soft, BS+, NT, ND
EXT: No edema B/L LE
NEURO: Gross non-focal
SKIN: Warm, dry and pink. No rash
Lab Results
05/09/25 03:53
05/09/25 03:53
Troponin I 0.017 ng/ml 05/09/25 07:15
Ktz-H-Tvkrgujfdjy Pept 267 pg/ml 05/09/25 03:53
Impression / Plan
-
PCP: Steven Reynolds
Dialysis Equipment Technician: Dr. EDGAR Todd
Impression:
Presented to the ER with chest pain 05/09/25
Hypotension
Nonobstructive coronary artery disease by cath 11/03/22
negative iFR assessment of distal LAD lesion
Chronic HFrEF
Nonischemic cardiomyopathy, EF 25-30% by echo 03/14/24
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
RV lead revision 11/17/23
s/p robotic sigmoidectomy for recurrent diverticulitis on 09/17/2023
Hypertension
Hyperlipidemia
PVCs
Former smoker
COPD
Obstructive sleep apnea, CPAP intolerant
Nuclear Sestamibi 10/30/22. Mild to moderate-sized, mid intensity defect in the basal, mid, inferior and apical segments. Summed rest score was 4.
Cardiac cath 11/03/2022:�LM: NL; LAD: LI, A Wedge Buster Omni wire was advanced to the distal LAD and the iFR serially measured at/above the ischemic threshold. RAMUS:LI. LCX:LI. RCA: LI.� LVG:Mildly reduced LVEF estimated 45% with moderate global
hypokinesis that is more pronounced in the inferior and anterolateral gallegos
Echo 10/30/22: EF 40-45%,� mild concentric LVH with inferior, anteroseptal, and focal apical hypokinesis. Thickened mitral leaflets w/ trace MR. nl LA. trace AR. nl RV. nl RA. aortic root is 4cm. Similar to December 2021.
Echo 09/16/23: EF 40 to 45%, mild global hypokinesis, stage I diastolic dysfunction, mild MR, trace TR, mildly dilated aortic root at 4.0 cm.
Echo 11/13/23: EF 30-35%, global hypokinesis, mild LVH, trace MR, aortic valve grossly normal, right atrium normal left atrium mildly dilated, RV normal, trace TR
Echo 03/14/24: EF 25 to 30%, global hypokinesis, trace MR, trace TR with PAP 25 to 30 mmHg, compared to previous 11/13/23 study EF is currently 25 to 30% and was previously 30 to 35%
Plan:
-Patient came to the ER very early this morning with complaints of chest pain that started last night and cardiology is consulted. Patient says he had a normal day yesterday and then later at night started with a pain that radiated across his chest
that felt like a bandlike tightness. Pain sometimes radiates down his arms, but nothing up to the neck or jaw. The pain is constant and is worse with a deep breath. He has never had pain like this before. Patient came to the ER at about 2:00
this morning with ongoing pain and the only thing that has made his pain better is morphine. Patient states that morphine relieves the pain and he then falls asleep and when he awakens the pain is back. No recent illness and he specifically denies
any fevers or chills. His WBC count was 11.1. His initial troponin was 0.02 and then 0.017. ECG is a paced rhythm. CT of chest was negative for PE. No mention of pericardial effusion on CT chest. Patient was given NTG SL without improvement in
chest pain. By review of MAR it looks like nitro gtt was ordered, but never administered and I confirmed this with nursing. Nitro gtt was never started due to hypotension and patient instead started on Levophed.
-ECG reviewed by me is paced rhythm
-Chest pain is constant for more than 12 hours and troponin levels are normal. Doubt ACS.
-Patient had nonobstructive CAD by cardiac cath 11/03/2022 and IFR assessment of LAD lesion at that time was negative for ischemia.
-Urgent bedside echo ordered and coordinated by me to recheck EF and exclude pericardial effusion. Of note no mention of pericardial effusion on CT chest.
-No fevers or chills, but WBC is 11.1. Lactic acid level is pending. LFTs normal. Aside from chest pain he denies having any other pain.
-Blood cultures ordered by ER staff.
-Patient now hypotensive and Levophed started in the ER. Nitro gtt was ordered, but never started due to hypotension. Patient was given NTG SL x 1 dose without improvement in chest pain.
-proBNP 267 which is the average based on previous levels. No evidence of acute HF on CXR or CT chest. OptiVol level was also in the normal range on device check in the ER.
-Device check in the ER reviewed by me and no arrhythmia events recorded.
[2025-05-09 11:33] LABS: Lipase 97 U/L (23-300)
--- NOTE | 2025-05-09 11:43 | CARDSERVLU ---
Echocardiogram with [facility] completed after protocol screening completed. Allergies verified.
Patent IV site: _Right wrist site clear____
IV site flushed with 0.9% NaCl pre and post administration.
Diluted bolus method utilized to enhance visualization of ventricular gallegos.
Total volume given: __2.5__ mL
Patient tolerated all procedures well without complications.
--- NOTE | 2025-05-09 12:25 | HPS.HSE ---
Family Physician
-
Family Physician: Ivon Cotto NP
Chief Complaint
-
chest pain
History of Present Illness
79yo M with PMHx of HFrEF s/p APARTMENT HOUSE MANAGER-D, HLD, PVCs, COPD, KATE not on CPAP, non-obstructive CAD as per cath in 2022, nonischemic CM, Hx of chest pain, thought to be musculosceletal came with chest pain, dull, heavy and persistent, worse on inspiration
and when palpating sternum started 12 hours before admission. Gven morphine and nitro in ED that somewhat helped.
No recent trauma noted. Patient sad that the pain quality is different from prior and also was intermitently radiating to LUE. Also found hypotensive in ED, however asymptomatic - without any lightheadedness or lethargy. Has no respiratory, GI or
urinary symptoms.
Medical History
Past Medical History
Past Medical History: Reports Other
Additional Past Medical History:
se above
Past Surgical History: Reports Other
Additional Past Surgical History:
see above
Social History
Tobacco: Former Smoker
Alcohol: Occasional
Drug: None
Family History
Family History: Not pertinent
Allergies / Home Medications
Allergies reflects when Allergies were last updated in [employer].
Home Medications with original date entered in [employer]
Allergy/Medication List:
Allergies
Allergy/AdvReac Type Severity Reaction Status Date / Time
No Known Allergies Allergy Verified 05/09/25 03:38
Home Medications
budesonide-formoterol HFA 160 mcg-4.5 mcg/actuation aerosol inhaler 2 puff inhalation R BID Lung/breathing issues 10/05/22
pantoprazole 40 mg tablet,delayed release 40 mg PO DAILY Gastrointestinal issue 30 days #30 tabs 08/27/23
amiodarone 200 mg tablet (Pacerone) 200 mg PO DAILY #0 tabs 02/27/24
atorvastatin 40 mg tablet 40 mg PO QPM High Cholesterol 05/10/24
metoprolol succinate 25 mg tablet,extended release 24 hr 12.5 mg PO DAILY Blood Pressure 05/10/24
sacubitril 24 mg-valsartan 26 mg tablet (Entresto) 1 tab PO HS Heart Failure 05/10/24
acetaminophen 325 mg tablet (Tylenol) 650 mg PO HSPRN PRN mild pain 05/09/25
aspirin 81 mg tablet,delayed release 81 mg PO Q48H 05/09/25
furosemide 40 mg tablet (Lasix) 20 mg PO DAILY 05/09/25
guaifenesin 600 mg tablet, extended release 12 hr (Mucinex) 600 mg PO BID 05/09/25
levocetirizine 5 mg tablet (Xyzal) 5 mg PO HS 05/09/25
Review of Systems
-
History Source: Patient
A 12 point ROS was completed and negative except as noted: Yes
Cardiac: Reports See HPI
Physical Exam
Vital Signs
Vital Signs
Temp Pulse Resp BP Pulse Ox
97.5 F 74 12 90/57 86
05/09/25 11:02 05/09/25 09:45 05/09/25 09:45 05/09/25 09:45 05/09/25 09:45
Physical Exam
General: Well Developed, Conversant and Pain
HEENT: NormoCephalic and Anicteric; No Moist mucous membranes
Respiratory: Clear; No Wheezes or Crackles
Cardiac: S1/S2 and Regular Rhythm; No Tachycardia
GI: Soft, Non Tender, Non Distended and Normal Bowel Sounds
Musculoskeletal: No Clubbing, No Cyanosis and No Edema
Skin: Warm; No Rash or Jaundice
Neuro: Awake, Alert, Oriented, AO x 3 and No Motor Deficits
Psych: Calm
Laboratory Results
-
05/09/25 03:53
05/09/25 03:53
Laboratory Results
Total Bilirubin 0.9 mg/dl (0.2-1.3) 05/09/25 03:53
AST 22 U/L (17-59) 05/09/25 03:53
ALT 23 U/L (0-50) 05/09/25 03:53
Alkaline Phosphatase 100 U/L (38-126) 05/09/25 03:53
Troponin I 0.017 ng/ml 05/09/25 07:15
Lipase 97 U/L (23-300) 05/09/25 03:53
Data Reviewed
-
Diagnostic Radiology: Report Reviewed by me
Lab Data: Labs Reviewed by me
Impression/Plan
-
A/P:
#Shock
unclear if hypovolemic vs septic
Patient seems to be at east euvolemic if not somewhat fluid depleted on admission
Attempt to hydrate
CT chest without overt pneumonia
check Bcx, UA
Vanco/Cefepime prnding further results
Follow CBC
ICU admission and pack worker to follow
Wean off pressors, while holding antihypertensives
check TSH (Hx of elevated tsh, but currently not on meds)
start PPI, lipase WNL, unclear if can be referred pain from gastritis, but reproducible nature makes it unlikely
#Chest pain
pleuritic
CT chest without VTE or aortic abnormality, no effusion or pneumonia seen
follow trops
Cardio consult
Pending Echo
check LDL, PT, PTT
#PVCs
#HFrEF chronic s/p APARTMENT HOUSE MANAGER-D
#COPD not in exacerbation
#Atopic d/o
#HLD
cont home meds
#CKD stage 3b
follow BMP
#low-attenuation left lobe thyroid nodule
Outpatient f/u with PCP for US
DVT ppx hep
Full code
I have spent at least 77min critical care time checking chart, test results, communication with consultants, family and providing direct patient care
[2025-05-09 13:37] LABS: Urine Character Clear (Clear)
[2025-05-09 13:55] LABS: INR 1.05; PT 14.0 Sec (11.4-14.6)
[2025-05-09 13:56] LABS: APTT 31.0 Sec (23.4-35.0)
[2025-05-09 13:58] LABS: LDL Cholesterol, Direct 51 mg/dl
--- NOTE | 2025-05-09 14:10 | CON.INTV ---
Consultation
Consultation Request
Date/Time Consultation Requested: 05/09/2025
Date/Time Consultation Performed: 05/09/2025
Requesting Provider: Dr. Carpenter
Performing Provider: Dr. Omari Price
Reason for Consultation: Shock-undifferentiated
Medical History
-
Chief Complaint: Abdominal pain - LLQ
History of Present Illness:
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
relatively recent cath, history of chest pain in the past which felt to be musculoskeletal.
Presents this time on 05/09/2025 complaining of heavy and persistent pain with inspiration and with palpation 12 hours prior admission.
Improved partially with morphine.
Found to be hypotensive in the emergency room without any other signs or symptoms but
Denies cough, wheezing phlegm production or fever.
Denies prior trauma.
Denies GI or symptoms.
CT of the chest was negative for pulmonary embolism or infiltrates.
Past Medical History
Past Medical History: Other (Above as per HPI)
Past Surgical History: Other (Above as per HPI)
Social History
Tobacco: Former Smoker (Smokes a cigar once a month; former cigarette user - quit 2001)
Alcohol: Occasional (Once a month)
Drug: None
Personal:
Employment: Retired
Family History
Family History: Reviewed & Not Pertinent
Allergies / Home Medications
Allergies
Allergy/AdvReac Type Severity Reaction Status Date / Time
No Known Allergies Allergy Verified 05/09/25 03:38
Home Medications
�Medication �Instructions �Recorded �Confirmed �Last Taken �Type
budesonide-formoterol HFA 160 2 puff inhalation R BID 10/05/22 05/09/25 05/08/25 History
mcg-4.5 mcg/actuation aerosol Lung/breathing issues
inhaler
pantoprazole 40 mg tablet,delayed 40 mg PO DAILY Gastrointestinal 08/27/23 05/09/25 05/08/25 Rx
release issue 30 days #30 tabs
atorvastatin 40 mg tablet 40 mg PO QPM High Cholesterol 05/10/24 05/09/25 05/08/25 History
metoprolol succinate 25 mg 12.5 mg PO DAILY Heart Failure 05/10/24 05/09/25 05/08/25 History
tablet,extended release 24 hr
sacubitril 24 mg-valsartan 26 mg 1 tab PO HS Heart Failure 05/10/24 05/09/25 05/08/25 History
tablet (Entresto)
acetaminophen 325 mg tablet 650 mg PO HSPRN PRN mild pain 05/09/25 05/09/25 05/08/25 History
(Tylenol)
amiodarone 200 mg tablet (Pacerone) 200 mg PO DAILY Arrhythmia 05/09/25 05/09/25 05/08/25 History
aspirin 81 mg tablet,delayed 81 mg PO Q48H Blood Clot 05/09/25 05/09/25 Unknown History
release Prevention/Tx
furosemide 40 mg tablet (Lasix) 20 mg PO DAILY Fluid 05/09/25 05/09/25 05/08/25 History
Retention/Swelling
guaifenesin 600 mg tablet, 600 mg PO BID Congestion 05/09/25 05/09/25 05/08/25 History
extended release 12 hr (Mucinex)
levocetirizine 5 mg tablet (Xyzal) 5 mg PO HS Allergies 05/09/25 05/09/25 05/08/25 History
Review of Systems
-
History Source: Patient
All other systems: Negative unless noted
Vitals / Labs / Diagnostic Testing
Vital Signs
Temp Pulse Resp BP Pulse Ox
97.5 F 67 16 115/58 95
05/09/25 11:02 05/09/25 14:05 05/09/25 14:05 05/09/25 14:05 05/09/25 13:05
Lab Data
05/09/25 03:53
05/09/25 03:53
Laboratory Results
05/09/25
13:29
PT 14.0
INR 1.05
APTT 31.0
Diagnostic Testing:
Physical Exam
-
HEENT: Normocephalic
Cardiovascular: S1/S2
Respiratory: Non-Labored Respirations and Other (Tenderness to palpation with sternal pressure. Reproducible.)
GI: Soft and Non Distended
Neurology: Awake, Oriented and No Motor Deficits
Skin: Warm and Other (Normal truncal rash)
General: Comfortable
Assessment
-
79-year-old male with past medical history noted. Admitted through the emergency room complaining of chest pain that is reproducible, worse with inspiration. Retrosternal. Worse with palpation. Found to be also hypotensive.
Shock: Undifferentiated
Normal lactic acid
Negative troponin/normal proBNP
Atypical chest pain
Mild leukocytosis
Acute kidney injury
Conditions present prior admission:
Hypertension
Hyperlipidemia
PVCs
COPD last time seen in our office 03/2024 By Tammie MACK and prior to that by Dr. Price 2022
Emphysema on CAT scan
On Symbicort and DuoNebs as needed. Asthmatic component suspected as well.
Obstructive sleep apnea-CPAP intolerant
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
Nonischemic cardiomyopathy ejection fraction 30 to 35% last echocardiogram available 11/2023.
Sick sinus syndrome status post pacemaker
Nonobstructive coronary artery disease status post cath in 2022.
Status post robotic sigmoid ectomy for recurrent diverticulitis 09/17/2023
Former smoker [id number] history
History of lung nodules
Last low-dose radiation CAT scan 04/04/2024: Chronic fibrotic changes. No evidence for pneumonia. Stable 5 mm right upper lobe lung nodule. Benign.
2 mm nodule right lower lobe unchanged.
Assessment and plan:
Patient transferred to the critical care unit for vasopressor support.
Initially admitted with chest pain and morphine was given for relief.
Workup so far negative.
Cardiology correspondence reviewed: Doubt any cardiac etiology for chest pain.
-
Shock: Undifferentiated. Possibly ? hypovolemic and related to multiple cardiac medication. Not clear to me whether hypotension develop after morphine.
Levophed will continue to maintain mean arterial blood pressure 65 mmHg or higher
-
Hypotensive with rising creatinine-status post IV hydration. Follow respiratory status closely.
Concentrated urine on Ely catheter.
Hold antihypertensive and diuretics.
Echocardiogram noted: Unchanged.
Patient appears nontoxic: So far no evidence for infection to suggest sepsis as explanation for hypotension.
-
Empirically started on broad-spectrum antibiotics for possible infection pending cultures, follow fevers. Follow leukocytosis. Suspicion not very high.
Will continue to monitor closely
-
May be in relationship to multiple cardiac medications as well as multiple morphine dosages/nitroglycerin.
Repeat BMP later
Ely urinary output-currently concentrated
Continue gentle IV fluid
-
Check TSH
Check cortisol level random
Minimize narcotic use
-
Pain is reproducible: Rule out costochondritis. Patient states that he has arthritis.
Analgesia per primary team pain appears to be musculoskeletal
Tramadol added
Prednisone may be helpful if everything else negative.
-
Check CRP
Sedimentation rate to be checked
Cardiology does not think cardiac in etiology at this point.
Troponin is trending lower
EKG not suggestive of ischemia
Echocardiogram is unchanged
Hemodynamic monitoring will continue
-
From the COPD perspective: No evidence for bronchospasm
Continue Symbicort
No indication for corticosteroids
Obstructive sleep apnea: Intolerant to CPAP.
Head of the bed elevation
Nocturnal oxygen
Dr. Price updated daughter at the bedside 05/09/2025.
Critical care statement: A total of 38 minutes of critical care time was provided for this patient today. This includes management of unstable vital signs, evaluation of the patient at bedside, reviewing the patient's pertinent medical records
including ventilator settings, arterial blood gases, radiographs, microbiology, laboratory evaluations and discussion with primary team, critical care nursing, and respiratory therapy.

Data reviewed:
CT angiogram of the chest 05/09/2025:
No evidence for central pulmonary embolism
Coronary artery calcifications.
No infiltrates.
Echocardiogram 05/09/2025:
Moderately decreased left ventricular function 30-35% LVEF. Global moderately decreased left ventricular function. Right ventricular function appear near normal. No pericardial effusion
ICD in place
Trace MR
[2025-05-09 14:11] LABS: Troponin I 0.015 ng/ml
[2025-05-09] MEDS: ROXICODONE 5 MG PO (14:20)
--- NOTE | 2025-05-09 14:45 | PHA.VAN.IN ---
Assessment
- Assessment
Renal Function: SCR Appears Elevated from baseline
Concomitant Antimicrobials: cefepime
Plan
- Plan
Initial / Loading Dose: 2000mg - administration pending
Maintenance Regimen: dosing by level
Monitoring: random 05/10 06
MRSA Screen: Ordered per protocol
Pharmacokinetics Vancomycin I
- -
Patient Age: 79
Patient Sex: Male
Vancomycin Day #: 1
Indication: Other
Requesting Provider: Dr. Carpenter
Pertinent Antimicrobial Allergies:
NKDA
Height / Weight:
Height 5 ft 7 in
Actual Weight 92.6 kg
- Vital Signs / Lab Results
Temp Pulse Resp BP Pulse Ox
97.5 F 72 26 117/80 95
05/09/25 11:02 05/09/25 14:25 05/09/25 14:25 05/09/25 14:25 05/09/25 14:25
Lab Results - Hematology
05/09/25
03:53
WBC 11.1 H
Lab Results - Chemistry
05/09/25
03:53
BUN 24 H
Creatinine 1.8 H
Estimated Creat Clear 36
Albumin 4.0
05/09/25
12:14
Lactic Acid 0.9
Lab Results - Urine
05/09/25
13:29
Urine Nitrite (Reflex) Negative
Leukocyte Esterase Rfl 1+ A
--- NOTE | 2025-05-09 15:00 | PTCARENOTE ---
Received pt from ER into rm [id number]. Pt. AAox3, c/o severe chest pain/pressure; rated 10; unrelieved by previous intervention in ER. Pt. reports pain worsens w activity and inspiration. Dr. Price notified and to bedside to assess; further orders
received for tramadol x1- see DEC. V-paced on monitor w atrial sensing. SpO2 93% on 3LNC. Auscultated dim breath sounds throughout w crackles @ bases. WEBER/shallow breaths. +BS, abd soft/round obese. Cont bowel. Ely in place draining clear,
betsey urine. # 18 L AC and #20 R FA patent, dressing c/d/i. IVF order clarified; LR @ 75mL/hr infusing w levo gtt- see flow sheet. Daughter @ bedside. Pt. instructed on how to report care concerns and call simental in reach.
[2025-05-09 15:01] LABS: Glucose - Point of Care 124 mg/dl (70-99)
[2025-05-09 15:17] LABS: C-Reactive Protein 8.20 mg/L (0.0-10.00)
[2025-05-09] MEDS: VANCOCIN 540 MG IV (15:27)
[2025-05-09] MEDS: LR 1000 IV (15:27)
[2025-05-09] MEDS: NSS IV (15:40)
[2025-05-09 15:42] LABS: Urine Red Blood Cell >100 /HPF (0-2); Urine Squamous Cell 0-2 /LPF (Few)
[2025-05-09 15:43] LABS: Urine White Cell 0-2 /HPF (0-5)
[2025-05-09] MEDS: ULTRAM 50 MG PO (17:35)
[2025-05-09] MEDS: HEPARIN 5000 UNITS SC ×2 (17:36→22:53)
[2025-05-09] MEDS: STERILE WATER FOR INJECTION 10 ML IV ×2 (17:36→22:52)
[2025-05-09] MEDS: MAXIPIME 1000 MG IV ×2 (17:36→22:52)
[2025-05-09] MEDS: LIPITOR 40 MG PO (17:36)
--- NOTE | 2025-05-09 18:24 | PTCARENOTE ---
pt. reported improved chest pain; rate down to 6. Levo gtt titrated off- see flow sheet. Radiology in contact w this RN regarding necessity/urgency of x-ray orders. Relayed to Dr. Carpenter via phone; orders adjusted and MD relayed to this RN
x-rays can be done routine in AM. Pt. assisted w ordering dinner; awaiting meal. Call simental remains w in reach.
[2025-05-09] MEDS: SYMBICORT 160/4.5 MCG INHALER 2 PUFF INH (19:43)
[2025-05-09] MEDS: TYLENOL 650 MG PO (19:57)
[2025-05-09] MEDS: NSS (PRESERVATIVE FREE) 10 ML IV (19:57)
[2025-05-09] MEDS: PROTONIX IV 40 MG IV (19:58)
--- NOTE | 2025-05-09 20:00 | PTCARENOTE ---
Received patient sitting up in bed, awake and alert watching TV. He appears uncomfortable in his breathing, states he has sternal CP with deep inspiration. Sternum and left medial breast is tender to palpation; left breast appears swollen,
especially medially. He rates pain 6/10. Prn Tylenol given. See ore miner blasting charted on worklist flowsheet. BBS with UL clear. Posteriorly diminished with bibasilar crackles. S1S2 regular with positive murmur. 100% Vpaced on CM. Positive pulses x 4
extremities, no edema. Ely catheter patent draining clear betsey urine. O2 at 3L/nc. Bed in low and locked position, call simental within reach.
--- NOTE | 2025-05-09 21:23 | PTCARENOTE ---
Tete MOTTA notified of patient bibasilar crackles, Cough, Sats 91-92% on 3L/nc and oral intake. Patient denies SOB but his breathing is reflective of musculoskeletal pain at sternum. He is currently on IVF. IVF discontinued per order.
[2025-05-09 21:26] LABS: Blood Urea Nitrogen 23 mg/dl (9-20); Calcium 7.9 mg/dl (8.4-10.2); Carbon Dioxide 24 mmol/L (22-30); Chloride 108 mmol/L (98-107); Estimated Creatinine Clearance 49 ml/min; Glucose 99 mg/dl (70-99); Potassium 4.4 mmol/L (3.5-5.1); Sodium 136 mmol/L (135-145); eGFR 55.53
[2025-05-09] MEDS: ZYRTEC 5 MG PO (22:52)
[2025-05-09] MEDS: DILAUDID 0.25 MG IV (22:54)
--- NOTE | 2025-05-09 23:30 | PTCARENOTE ---
Sats 87% on 3L/nc. Patient appears to be sleeping comfortably. Rouses easily. Oxygen increased to 5L/nc. Physical assessment essentially unchanged except patient states sternal pain has improved after pain medication, was previously administered
Dilaudid 0.25mg IV, see MAR. NPO after MN for testing tomorrow.
[2025-05-10] VITALS (17 sets, daily range): BP systolic 94–127; BP diastolic 52–70; BMI 32.1
--- NOTE | 2025-05-10 01:25 | PTCARENOTE ---
Patient mouth breathing with brief periods of sleep apnea noted (patient has hx of KATE), sats continue to drop despite increasing oxygen to 6L at 0015. Tete MOTTA notified, new orders received for oxymask. Oxymask at 6L placed by RT, sats 94-96%.
Oxygen decreased to 4L. Per PLASTIC EXTRUDING MACHINE OPERATOR, keep sats >89%.
--- NOTE | 2025-05-10 04:30 | PTCARENOTE ---
Patient awake. He appears to have slept comfortably for most of the night. Appears to be breathing easier. Denies SOB. States that he has no 'chest pain' if he is still and resting. He only has discomfort if he moves. Declines offer of pain med. BBS
unchanged. Sats 93% on 4L oxymask. Am labs drawn.
[2025-05-10 04:53] LABS: Hematocrit 44.9 % (39.0-52.0); Hemoglobin 14.9 g/dL (13.0-18.0); Mean Corp Hgb Conc. 33.2 g/dL (33.0-37.0); Mean Corpuscular Volume 90.7 fL (80.0-94.0); Nucleated Red Blood Cells % 0 % (-); Platelet Count 127 10^3/uL (130-400); Red Cell Dist. Width 14.6 % (11.5-14.5)
[2025-05-10 05:13] LABS: ALT (SGPT) 16 U/L (0-50); AST (SGOT) 16 U/L (17-59); Albumin 3.2 g/dl (3.5-5.0); Alkaline Phosphatase 85 U/L (38-126); Blood Urea Nitrogen 21 mg/dl (9-20); Calcium 8.2 mg/dl (8.4-10.2); Carbon Dioxide 22 mmol/L (22-30); Chloride 109 mmol/L (98-107); Estimated Creatinine Clearance 49 ml/min; Glucose 94 mg/dl (70-99); Potassium 4.6 mmol/L (3.5-5.1); Sodium 136 mmol/L (135-145); Total Protein 5.3 g/dl (6.3-8.2); eGFR 55.53
[2025-05-10 05:45] LABS: Cortisol, Random 11.6 ug/dl; TSH 7.17 uIU/ml (0.47-4.68)
--- NOTE | 2025-05-10 07:20 | PTCARENOTE ---
Report given verbally to oncoming israel, Tiny GU. Bedside rounds complete. Questions answered.
[2025-05-10] MEDS: SYMBICORT 160/4.5 MCG INHALER 2 PUFF INH ×2 (07:36→21:13)
[2025-05-10] MEDS: PROTONIX IV 40 MG IV (08:27)
[2025-05-10] MEDS: NSS (PRESERVATIVE FREE) 10 ML IV (08:27)
[2025-05-10] MEDS: SYNTHROID 75 MCG PO (08:27)
[2025-05-10] MEDS: ASPIR LOW (ENTERIC COATED) 81 MG PO (08:28)
[2025-05-10] MEDS: MAXIPIME 1000 MG IV (08:28)
[2025-05-10] MEDS: PACERONE 200 MG PO (08:28)
[2025-05-10] MEDS: STERILE WATER FOR INJECTION 10 ML IV (08:28)
[2025-05-10] MEDS: HEPARIN 5000 UNITS SC ×3 (08:29→23:58)
[2025-05-10 09:28] LABS: COVID-19 Antigen Negative (Negative)
--- NOTE | 2025-05-10 10:07 | W.PN.CARDCBS ---
Today's Communication / Plan
-
stable cardiology status for d/c
Impression / Plan
-
PCP: Steven Reynolds
Hand Wood Sander: Dr. EDGAR Todd
Impression:
Presented to the ER with chest pain 05/09/25
Hypotension, Resolved
Nonobstructive coronary artery disease by cath 11/03/22
negative iFR assessment of distal LAD lesion
Chronic HFrEF
Nonischemic cardiomyopathy, EF 25-30% by echo 03/14/24
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
RV lead revision 11/17/23
s/p robotic sigmoidectomy for recurrent diverticulitis on 09/17/2023
Hypertension
Hyperlipidemia
PVCs
Former smoker
COPD
Obstructive sleep apnea, CPAP intolerant
Nuclear Sestamibi 10/30/22. Mild to moderate-sized, mid intensity defect in the basal, mid, inferior and apical segments. Summed rest score was 4.
Cardiac cath 11/03/2022:�LM: NL; LAD: LI, A Arbuckle Omni wire was advanced to the distal LAD and the iFR serially measured at/above the ischemic threshold. RAMUS:LI. LCX:LI. RCA: LI.� LVG:Mildly reduced LVEF estimated 45% with moderate global
hypokinesis that is more pronounced in the inferior and anterolateral gallegos
Echo 10/30/22: EF 40-45%,� mild concentric LVH with inferior, anteroseptal, and focal apical hypokinesis. Thickened mitral leaflets w/ trace MR. nl LA. trace AR. nl RV. nl RA. aortic root is 4cm. Similar to December 2021.
Echo 09/16/23: EF 40 to 45%, mild global hypokinesis, stage I diastolic dysfunction, mild MR, trace TR, mildly dilated aortic root at 4.0 cm.
Echo 11/13/23: EF 30-35%, global hypokinesis, mild LVH, trace MR, aortic valve grossly normal, right atrium normal left atrium mildly dilated, RV normal, trace TR
Echo 03/14/24: EF 25 to 30%, global hypokinesis, trace MR, trace TR with PAP 25 to 30 mmHg, compared to previous 11/13/23 study EF is currently 25 to 30% and was previously 30 to 35%
Plan:
Chest pain has resolved. Etiology unclear but troponins have continued to go down and echocardiogram was unchanged. May be musculoskeletal source. Patient feels well. Will ambulate and if no further discomfort will discharge to home. Updated
primary service and patient's daughter who is a nurse in our office.
Hypotension resolved
PREADMIT DATA
-Patient came to the ER very early this morning with complaints of chest pain that started last night and cardiology is consulted. Patient says he had a normal day yesterday and then later at night started with a pain that radiated across his chest
that felt like a bandlike tightness. Pain sometimes radiates down his arms, but nothing up to the neck or jaw. The pain is constant and is worse with a deep breath. He has never had pain like this before. Patient came to the ER at about 2:00
this morning with ongoing pain and the only thing that has made his pain better is morphine. Patient states that morphine relieves the pain and he then falls asleep and when he awakens the pain is back. No recent illness and he specifically denies
any fevers or chills. His WBC count was 11.1. His initial troponin was 0.02 and then 0.017. ECG is a paced rhythm. CT of chest was negative for PE. No mention of pericardial effusion on CT chest. Patient was given NTG SL without improvement in
chest pain. By review of MAR it looks like nitro gtt was ordered, but never administered and I confirmed this with nursing. Nitro gtt was never started due to hypotension and patient instead started on Levophed.
Progress Note - Hand Wood Sander
Subjective
Date of Service: May 10, 2025
No complaints
Objective
Labs:
05/10/25 04:32
05/10/25 04:32
Labs
Hgb 14.9 g/dL (13.0-18.0) 05/10/25 04:32
Hct 44.9 % (39.0-52.0) 05/10/25 04:32
Plt Count 127 10^3/uL (130-400) L 05/10/25 04:32
PT 14.0 Sec (11.4-14.6) 05/09/25 13:29
INR 1.05 05/09/25 13:29
APTT 31.0 Sec (23.4-35.0) 05/09/25 13:29
Sodium 136 mmol/L (135-145) 05/10/25 04:32
Potassium 4.6 mmol/L (3.5-5.1) 05/10/25 04:32
BUN 21 mg/dl (9-20) H 05/10/25 04:32
Creatinine 1.3 mg/dL (0.7-1.3) 05/10/25 04:32
Glucose 94 mg/dl (70-99) 05/10/25 04:32
Troponins
05/09/25 05/09/25 05/09/25
03:53 07:15 13:29
Troponin I 0.020 0.017 0.015
05/09/25
20:15
Troponin I Cancelled
Vital Signs and I&O:
Vital Signs
Temp Pulse Resp BP Pulse Ox
98.5 F 67 16 107/59 92
05/10/25 07:52 05/10/25 09:00 05/10/25 09:00 05/10/25 09:00 05/10/25 08:50
Vital Signs
Temp Pulse Resp BP Pulse Ox
98.5 F 67 16 107/59 92
05/10/25 07:52 05/10/25 09:00 05/10/25 09:00 05/10/25 09:00 05/10/25 08:50
Intake & Output
05/08/25 05/09/25 05/10/25 05/11/25
06:59 06:59 06:59 06:59
Intake Total 1310 / 1310 0 / 0
Output Total 850 / 850
Balance 460 / 460 0 / 0
Physical Exam
Physical Exam
General: Well developed, well nourished in NAD.
Neck: Supple, no JVD, HJR, carotids +2 B/L, no bruits bilaterally.
Heart: Non displaced PMI, RRR, no murmurs, No S3, S4, no rubs.
Lungs: Scattered rhonchi
Extremities: No clubbing, cyanosis or edema bilaterally.
Neuro: Grossly nonfocal, awake, alert and oriented x3.
--- NOTE | 2025-05-10 10:10 | PTCARENOTE ---
Patient downgraded to M/S level of care. VSS. Resting comfortably in bed. Denies cp. Order obtained to sergio toure.
--- NOTE | 2025-05-10 11:06 | W.PN.INTV ---
Today's Communication / Plan
Recommendations
Increase activity as able
IV fluids discontinued
Encourage oral intake
Follow CBC
Continue inhalers
Transfer to [facility]
Sign off
Eventual follow-up with Dr. Price after discharge
Assessment
-
79-year-old male with past medical history noted. Admitted through the emergency room complaining of chest pain that is reproducible, worse with inspiration. Retrosternal. Worse with palpation. Found to be also hypotensive.
Shock: Undifferentiated
Normal lactic acid
Negative troponin/normal proBNP
Atypical chest pain
Mild leukocytosis
Acute kidney injury
Conditions present prior admission:
Hypertension
Hyperlipidemia
PVCs
COPD last time seen in our office 03/2024 By Tammie MACK and prior to that by Dr. Price 2022
Emphysema on CAT scan
On Symbicort and DuoNebs as needed. Asthmatic component suspected as well.
Obstructive sleep apnea-CPAP intolerant
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
Nonischemic cardiomyopathy ejection fraction 30 to 35% last echocardiogram available 11/2023.
Sick sinus syndrome status post pacemaker
Nonobstructive coronary artery disease status post cath in 2022.
Status post robotic sigmoid ectomy for recurrent diverticulitis 09/17/2023
Former smoker [id number] history
History of lung nodules
Last low-dose radiation CAT scan 04/04/2024: Chronic fibrotic changes. No evidence for pneumonia. Stable 5 mm right upper lobe lung nodule. Benign.
2 mm nodule right lower lobe unchanged.
Assessment and plan:
Patient transferred to the critical care unit for vasopressor support 05/10/2025
Initially admitted with chest pain and morphine was given for relief.
Workup so far negative.
Cardiology correspondence reviewed: Doubt any cardiac etiology for chest pain.
-
Shock: Undifferentiated. Resolved after IV fluid resuscitation.
Levophed has been discontinued
Suspect related to volume depletion and cardiac medications.
Creatinine improved after IV fluid hydration
-
TSH slightly elevated
--Defer to primary team further evaluation
normal random cortisol
Patient appears nontoxic: So far no evidence for infection to suggest sepsis as explanation for hypotension.
So far no evidence for infection.
If all cultures negative consider discontinuation of antibiotics. Defer to primary team.
Urine on Ely now appears clear. Discontinue Ely.
Cautiously reintroduce antihypertensive.
Would hold diuretics for now.
Echocardiogram noted: Unchanged.
-
Follow CBC.Mild thrombocytopenia noted. Normal white blood cell counts and hemoglobin.
-
Pain is reproducible in the sternal area: Rule out costochondritis. Patient states that he has arthritis.
Normal sedimentation rate
Analgesia per primary team pain appears to be musculoskeletal
Tramadol as needed.
If pain is persistent can consider low-dose prednisone course.
Patient today reports that his pain is gone 05/10/2025.
There is no presence of rash on exam
-
Cardiology does not think cardiac in etiology at this point.
Troponin is trending lower
EKG not suggestive of ischemia
Echocardiogram is unchanged
Hemodynamic monitoring will continue
-
From the COPD perspective: No evidence for bronchospasm
Continue Symbicort
No indication for corticosteroids
Obstructive sleep apnea: Intolerant to CPAP.
Head of the bed elevation
Nocturnal oxygen
Dr. Price updated daughter at the bedside 05/09/2025.
No additional pulmonary or critical care recommendations.
At this point I will sign off
Transfer to [facility]

Data reviewed:
CT angiogram of the chest 05/09/2025:
No evidence for central pulmonary embolism
Coronary artery calcifications.
No infiltrates.
Echocardiogram 05/09/2025:
Moderately decreased left ventricular function 30-35% LVEF. Global moderately decreased left ventricular function. Right ventricular function appear near normal. No pericardial effusion
ICD in place
Trace MR
Subjective Dataa
Subjective Data
Date of Service:
Date of Service: May 10, 2025
Chief Complaint: Paper Mill Manager Follow Up (Hypotension/atypical chest pain)
Subjective:
Patient states that his pain has resolved
He would like to eat
Denies shortness of breath
Levophed has been discontinued
Review of Systems
General: Fever (n)
Cardiopulmonary: Dyspnea (none at rest) and Cough (n)
GI: Abdominal Pain (n)
Neuro: Headache (n)
Objective Data
Data Reviewed
Vital Signs / I&O / Oxygen:
Vital Signs
Temp Pulse Resp BP Pulse Ox
98.5 F 68 17 109/60 93
05/10/25 07:52 05/10/25 10:00 05/10/25 10:00 05/10/25 10:00 05/10/25 10:00
Intake and Output
05/09/25 05/10/25 05/11/25
06:59 06:59 06:59
Intake Total 1310 / 1310 480 / 480
Output Total 850 / 850 270 / 270
Balance 460 / 460 210 / 210
SaO2 93
Nasal Cannula flow liters per 2
minute
Physical Exam
General: Comfortable
HEENT: Normocephalic
Cardiovascular: S1-S2 and Regular Rhythm
Respiratory: Clear and Non-Labored Respirations
GI: Soft and Non Distended
Neurology: Awake, Oriented and AO x 3
Labs/Micro/Reports
Lab Data
05/10/25 04:32
05/10/25 04:32
Laboratory Results
05/09/25
13:29
PT 14.0
INR 1.05
APTT 31.0
Microbiology
05/10/25 08:48 Nasal Swab Influenza Types A & B (GUERRERO) - Final
Negative for Influenza A & B, NAAT
Negative results must be combined with clinical observations
and patient history.
Nucleic Acid Amplification test (NAAT)performed on the
[employer] platform.
05/09/25 17:58 Nose Nasal Screen MRSA (PCR) - Final
MRSA not detected - performed by PCR methodology.
--- NOTE | 2025-05-10 11:52 | CM ---
Initial assessment completed with patient with daughter in room. patient lives alone in a 1 story condo wt no steps to enter. [employer] he was independent in ADL's and ambulation, drives. Has a RW and SPC in the home but does not use. Patient has a
pacer/ICD. He has sleep apnea but does not use a Bipap/CPAP. He cannot tolerate the mask. No in-home services. No service. Does have HC-POA. MAPPING TECHNICIAN is Ivon Cotto and pharmacy is [facility] on [address] in [place]. Discharge POC: Anticipate
home with no needs.
--- NOTE | 2025-05-10 11:58 | PTCARENOTE ---
Patient weaned to RA. VSS. OOB in chair since 1020. Ambulatory in room with supervision.
--- NOTE | 2025-05-10 12:32 | W.PN.HOSP.TC ---
Today's Communication/Plan
-
ceftriaxone pending Ucx
follow BP, restart BB
transfer to [facility]
Assessment / Plan
Assessment / Plan
79yo M with PMHx of HFrEF s/p GOLD LEAF LAYER-D, HLD, PVCs, COPD, KATE not on CPAP, non-obstructive CAD as per cath in 2022, nonischemic CM, Hx of chest pain, thought to be musculosceletal came with chest pain, dull, heavy and persistent, worse on inspiration
and when palpating sternum started 12 hours before admission. REventually resolved. Cardiology contributed derik to musculosceletal cause.
A/P:
#UTI
minimal concern for cystitis
ceftriaxone pensing Ucx
#Mild thrombocytopenia
most liekly 2/2 hydration
Follow plt
Check Blood for parasites
#Shock
unclear if hypovolemic vs septic
Patient seems to be at east euvolemic if not somewhat fluid depleted on admission
improved on hydration
CT chest without overt pneumonia
Bcx NTD
ICU admission and customs investigator to follow
Weaned off pressors, while holding antihypertensives, restart gradually
check TSH (Hx of elevated tsh, but currently not on meds)
start PPI, lipase WNL, unclear if can be referred pain from gastritis, but reproducible nature makes it unlikely
#Chest pain
resolved, so no current reason to proceed with ribs series or esophagram -cancelled
pleuritic
CT chest without VTE or aortic abnormality, no effusion or pneumonia seen
trops neg
Cardio consult: no further w/u needed, might be musculosceletal
Echo: Ef 30-35%, diffuse hypokinesis of L ventricular wall, no pericardial effusion
Advised outpatient EGD
#PVCs
#HFrEF chronic s/p GOLD LEAF LAYER-D
#COPD not in exacerbation
#Atopic d/o
#HLD
cont home meds
#CKD stage 3b
follow BMP
#low-attenuation left lobe thyroid nodule
Outpatient f/u with PCP for US
DVT ppx hep
Full code
I have spent at least 57min critical care time checking chart, test results, communication with consultants, family and providing direct patient care
Anticipated Discharge: 24 - 48 hours
Subjective/Interval History
-
Date of Service: May 10, 2025
Objective Data
-
Labs:
Laboratory Results
05/10/25
04:32
WBC 7.0
Hgb 14.9
Hct 44.9
Plt Count 127 L
Sodium 136
Potassium 4.6
Chloride 109 H
Carbon Dioxide 22
BUN 21 H
Creatinine 1.3
Glucose 94
Calcium 8.2 L
Total Bilirubin 0.9
AST 16 L
ALT 16
Alkaline Phosphatase 85
Vital Signs:
Vital Signs
Temp Pulse Resp BP Pulse Ox
98.5 F 72 17 101/62 92
05/10/25 07:52 05/10/25 11:18 05/10/25 11:18 05/10/25 11:18 05/10/25 11:18
I&O
05/09/25 05/10/25 05/11/25
06:59 06:59 06:59
Intake Total 1310 / 1310 480 / 480
Output Total 850 / 850 270 / 270
Balance 460 / 460 210 / 210
Review of Systems
-
History Source: Patient
All other systems: Reviewed and negative
Physical Exam
-
General: No Apparent Distress
HEENT: Normocephalic
Respiratory: Clear to Auscultation
GI: Soft, Nontender and Nondistended
Rectal: Brown
Genito-urinary: No Costovertebral Tender
Musculoskeletal: No Clubbing, No Cyanosis and No Edema
Neuro: Awake, Alert, Oriented and AO x 3
Psych: Calm
--- NOTE | 2025-05-10 15:14 | CM ---
Patient transferred to Room 407.
--- NOTE | 2025-05-10 15:17 | TRANSFER ---
Patient transported on tele pack with belongings to . [facility].
--- NOTE | 2025-05-10 15:50 | PTCARENOTE ---
Received pt in transfer from ICU via wheelchair; accompanied by volunteer. Pt AAO x3, MAGALLON well, ambulatory to bed, no c/o weakness/dizziness. VSS. Placed on telemetry; SR with V-pacing; occ AV paced. On room air- pt with slight WEBER; denies SOB.
Pulse ox 93%. Abd large, soft, BS (+). Pt DTV; states will void in BR. Afebrile; skin warm and dry. Oriented to 4 East, currently resting comfortably. Will continue to monitor.
[2025-05-10] MEDS: LIPITOR 40 MG PO (17:40)
[2025-05-10] MEDS: NSS (PRESERVATIVE FREE) IV (21:21)
[2025-05-10] MEDS: ZYRTEC 5 MG PO (21:54)
[2025-05-10] MEDS: TYLENOL 650 MG PO (22:35)
[2025-05-11 03:17] VITALS: BP 100/45
[2025-05-11] MEDS: SYNTHROID 75 MCG PO (05:47)
[2025-05-11 06:00] VITALS: BMI 31.7
[2025-05-11] MEDS: SYMBICORT 160/4.5 MCG INHALER 2 PUFF INH (07:32)
[2025-05-11 07:50] VITALS: BP 121/62
[2025-05-11] MEDS: HEPARIN 5000 UNITS SC (08:50)
[2025-05-11] MEDS: TOPROL XL 12.5 MG PO (08:51)
[2025-05-11] MEDS: ASPIR LOW (ENTERIC COATED) 81 MG PO (08:51)
[2025-05-11] MEDS: PROTONIX 40 MG PO (08:52)
[2025-05-11] MEDS: PACERONE 200 MG PO (08:52)
--- NOTE | 2025-05-11 09:04 | PN.CDI ---
CDI
- -
CDI:
Physician Documentation Request
Admit Date: 05/09/25 12:21
Dear Doctor Jayden,
Please review the following and provide your response in the progress notes.
Clinical Indicators:
- 05/10 Director Of Distribution 'acute kidney injury'
- 05/10 PN 'CKD stage 3b'
Laboratory Tests
05/09/25 05/09/25 05/10/25
03:53 21:00 04:32
Creatinine 1.8 H 1.3 1.3
eGFR 37.58 55.53 55.53
In an attempt to clarify potentially conflicting documentation, please clarify the renal status:
ESTEBAN
ESTEBAN on CKD 3
Other (please specify)
Criteria for ESTEBAN*
1 Increase in serum creatinine by > or = to 0.3 mg/dL (> or = to 26.5 micromol/L) within 48 hours, OR
2 Increase in serum creatinine to > or = to 1.5 times baseline, which is known or presumed to have occurred within 7 days, OR
3 Urine volume < 0.5 nL/kg/hour for six hours
Stages of Chronic Kidney Disease*
Level Description GFR
G1 Normal or High >90
G2 Mildly decreased 60-89
G3a Mildly to moderately decreased 45-59
G3b Moderately to severely decreased 30-44
G4 Severely decreased 15-29
G5 Kidney failure <15
Use of terms such as suspected, likely, concern for, or probable (associated with a specific diagnosis that is being evaluated, monitored, or treated as if it exists) are acceptable and can be coded in the inpatient setting, when documented at the
time of discharge.
Thank you,
Tee Kevin RN
CDI Specialist
Please use your independent medical judgment in providing your response.
*Source: Kidney Disease: Improving Global Outcomes (KDIGO) 2012
[2025-05-11 09:42] LABS: Hematocrit 44.7 % (39.0-52.0); Hemoglobin 15.2 g/dL (13.0-18.0); Mean Corp Hgb Conc. 34.0 g/dL (33.0-37.0); Mean Corpuscular Volume 88.2 fL (80.0-94.0); Nucleated Red Blood Cells % 0 % (-); Platelet Count 129 10^3/uL (130-400); Red Cell Dist. Width 14.1 % (11.5-14.5)
[2025-05-11 09:51] LABS: ALT (SGPT) 15 U/L (0-50); AST (SGOT) 19 U/L (17-59); Albumin 3.5 g/dl (3.5-5.0); Alkaline Phosphatase 70 U/L (38-126); Blood Urea Nitrogen 19 mg/dl (9-20); Calcium 8.4 mg/dl (8.4-10.2); Carbon Dioxide 23 mmol/L (22-30); Chloride 107 mmol/L (98-107); Estimated Creatinine Clearance 58 ml/min; Glucose 136 mg/dl (70-99); Potassium 4.5 mmol/L (3.5-5.1); Sodium 136 mmol/L (135-145); Total Protein 5.8 g/dl (6.3-8.2); eGFR > 60.00
--- NOTE | 2025-05-11 10:13 | W.PN.HOSP.TC ---
Today's Communication/Plan
-
DC
Assessment / Plan
Assessment / Plan
79yo M with PMHx of HFrEF s/p POWERHOUSE TENDER-D, HLD, PVCs, COPD, KATE not on CPAP, non-obstructive CAD as per cath in 2022, nonischemic CM, Hx of chest pain, thought to be musculoskeletal came with chest pain, dull, heavy and persistent, worse on inspiration
and when palpating sternum started 12 hours before admission. Eventually resolved. Cardiology contributed derik to musculoskeletal cause. Found hypothyroidism, started on Synthroid and follow TFT with PCP in 3-4 weeks. Advised to restart home meds
and follow with typewriter assembler if hypotension ensues. US thyroid recommended. repat CBC in 1 week for mild thrombocytopenia, if persistent - get referral to carton gluing machine operator from PCP. Outpatient GI recommended. Medically stable for d/c
A/P:
#UTI ruled out
Ucx neg
#Mild thrombocytopenia
most liekly 2/2 hydration
Follow plt with PCP
Check Blood for parasites
#Shock
unclear if hypovolemic vs septic
Patient seems to be at east euvolemic if not somewhat fluid depleted on admission
improved on hydration
CT chest without overt pneumonia
Bcx NTD
ICU admission and cargo and ramp services manager to follow
Weaned off pressors, while holding antihypertensives, restart gradually
lipase WNL, unclear if can be referred pain from gastritis, but reproducible nature makes it unlikely
#Chest pain
resolved, so no current reason to proceed with ribs series or esophagram -cancelled
pleuritic
CT chest without VTE or aortic abnormality, no effusion or pneumonia seen
trops neg
Cardio consult: no further w/u needed, might be musculoskeletal
Echo: Ef 30-35%, diffuse hypokinesis of L ventricular wall, no pericardial effusion
Advised outpatient EGD
#PVCs
#HFrEF chronic s/p POWERHOUSE TENDER-D
#COPD not in exacerbation
#Atopic d/o
#HLD
cont home meds
Outpatient pulm for spirometry
#CKD stage 3b
follow BMP
#low-attenuation left lobe thyroid nodule
Outpatient f/u with PCP for US
DVT ppx hep
Full code
I have spent at least 37min critical care time checking chart, test results, communication with consultants, family and providing direct patient care
Anticipated Discharge: Today
Subjective/Interval History
-
Date of Service: May 11, 2025
Objective Data
-
Labs:
Laboratory Results
05/11/25
09:26
WBC 6.2
Hgb 15.2
Hct 44.7
Plt Count 129 L
Sodium 136
Potassium 4.5
Chloride 107
Carbon Dioxide 23
BUN 19
Creatinine 1.1
Glucose 136 H
Calcium 8.4
Total Bilirubin 0.9
AST 19
ALT 15
Alkaline Phosphatase 70
Vital Signs:
Vital Signs
Temp Pulse Resp BP Pulse Ox
98.1 F 71 18 121/62 96
05/11/25 07:50 05/11/25 08:52 05/11/25 07:50 05/11/25 07:50 05/11/25 09:00
I&O
05/10/25 05/11/25 05/12/25
06:59 06:59 06:59
Intake Total 1310 / 1310 1380 / 1380
Output Total 850 / 850 270 / 270
Balance 460 / 460 1110 / 1110
Review of Systems
-
History Source: Patient
All other systems: Reviewed and negative
Physical Exam
-
General: No Apparent Distress
HEENT: Normocephalic
Respiratory: Clear to Auscultation
GI: Soft, Nontender and Nondistended
Musculoskeletal: No Clubbing, No Cyanosis and No Edema
Neuro: Awake, Alert, Oriented and AO x 3
Psych: Calm
--- NOTE | 2025-05-11 10:20 | W.DCSUMMARY ---
Discharge Summary
Discharge Data
Date of Admission: 05/09/25
Date of Discharge: 05/11/25
-
Pending Results: No
Hospital Course
79yo M with PMHx of HFrEF s/p SEWAGE DISPOSAL WORKER-D, HLD, PVCs, COPD, KATE not on CPAP, non-obstructive CAD as per cath in 2022, nonischemic CM, Hx of chest pain, thought to be musculoskeletal came with chest pain, dull, heavy and persistent, worse on inspiration
and when palpating sternum started 12 hours before admission. Eventually resolved. Cardiology contributed derik to musculoskeletal cause. Found hypothyroidism, started on Synthroid and follow TFT with PCP in 3-4 weeks. Advised to restart home meds
and follow with gas appliance installer if hypotension ensues. US thyroid recommended. repat CBC in 1 week for mild thrombocytopenia, if persistent - get referral to field staff from PCP. Outpatient GI recommended. Medically stable for d/c
I have spent at least 37min critical care time checking chart, test results, communication with consultants, family and providing direct patient care
Patient was managed for:
#UTI ruled out
#Mild thrombocytopenia
#Shock
#Chest pain
#PVCs
#HFrEF chronic s/p SEWAGE DISPOSAL WORKER-D
#COPD not in exacerbation
#Atopic d/o
#HLD
#ESTEBAN on CKD stage 3b
#low-attenuation left lobe thyroid nodule
Discharge Plan
-
Patient Disposition: Home (Routine Discharge)
Discharge Diagnosis/Procedures: chest pain
Diet: Low Sodium
Activity: As tolerated
Driving Restrictions: Not until seen by your Dr
Blood Work: CBC in 1 week and TFT in 3-4 weeks with family doctor
Others Tests: US thyroid with family doctor
Specialty Instructions: Weigh Daily- Call MD for wt gain/loss 3 lbs overnight/5 lbs in 1 week
Referrals:
Ivon Cotto NP [Family Provider, Family Practice] - in one week
Referral Note: CBC in 1 week for thrombocytopenia and TFT in 3-4 weeks for new Synthroid and US thyroid due to newly found small nodule
Omari Hastings MD [Active, Pulmonary Medicine] - in two to three weeks
Referral Note: 6MWT/spirometry.
Ava Issa MD [Active, Gastroenterology] - in one to two months
Referral Note: for EGD - recurrent substernal pain
Prescriptions:
New
levothyroxine 75 mcg Tablet
75 mcg PO DAILY @ 0600 Qty: 30 0RF
Continued
budesonide-formoterol 160-4.5 mcg/actuation Hfa Aerosol Inhaler
2 puff inhalation R BID
pantoprazole 40 mg Tablet,Delayed Release (Dr/Ec)
40 mg PO DAILY 30 Days Qty: 30 0RF
atorvastatin 40 mg tablet
40 mg PO QPM
metoprolol succinate 25 mg tablet extended release 24 hr
12.5 mg PO DAILY
sacubitril-valsartan [Entresto] 24-26 mg tablet
1 tab PO HS
aspirin 81 mg Tablet,Delayed Release (Dr/Ec)
81 mg PO Q48H
levocetirizine [Xyzal] 5 mg Tablet
5 mg PO HS
guaifenesin [Mucinex] 600 mg Tablet Extended Release 12hr
600 mg PO BID
furosemide [Lasix] 40 mg tablet
20 mg PO DAILY
acetaminophen [Tylenol] 325 mg Tablet
650 mg PO HSPRN PRN (Reason: mild pain)
amiodarone [Pacerone] 200 mg tablet
200 mg PO DAILY
Discharge Orders:
Discharge Patient (As Directed); Ordered 05/11/25
Ordered By: Derrek Carpenter
Discharge Date and Time
Print Language: CITIZEN [place]
--- NOTE | 2025-05-11 10:52 | CM ---
Spoke with patient as discharge order is in. He stated that his daughter is coming to transport him home. He expressed that he feels he is physically at baseline and does not need anything post acute care. IMM, reviewed, signed and on chart.
Plan: Case management will continue to follow and assist with discharge planning. Home, no needs.
[2025-05-11 11:28] VITALS: BP 120/67
== END 2025-05-11 12:57 | disposition home or self-care (01) | DRG 682 ==
LOC: 4 EAST ACU 12:21
PROVIDERS: Emergency Medicine; ADMITTING PHYSICIAN Internal Medicine; CONSULT PHYSICIAN Internal Medicine Cardiovascular Disease; CONSULT PHYSICIAN Internal Medicine Critical Care Medicine; EMERGENCY PHYSICIAN Emergency Medicine; FAMILY PHYSICIAN Nurse Practitioner Family
DX: N17.9 Acute kidney failure, unspecified (principal); R57.1 Hypovolemic shock; I13.0 Hypertensive heart and chronic kidney disease with heart failure and stage 1 through stage 4 chronic kidney disease, or unspecified chronic kidney disease; I47.20 Ventricular tachycardia, unspecified; I50.22 Chronic systolic (congestive) heart failure; I42.8 Other cardiomyopathies; N18.32 Chronic kidney disease, stage 3b; E11.22 Type 2 diabetes mellitus with diabetic chronic kidney disease; I25.10 Atherosclerotic heart disease of native coronary artery without angina pectoris; G47.33 Obstructive sleep apnea (adult) (pediatric); I49.3 Ventricular premature depolarization; E78.00 Pure hypercholesterolemia, unspecified; J43.9 Emphysema, unspecified; E04.1 Nontoxic single thyroid nodule; D72.829 Elevated white blood cell count, unspecified; R91.1 Solitary pulmonary nodule; D69.6 Thrombocytopenia, unspecified; E03.9 Hypothyroidism, unspecified; E86.1 Hypovolemia; Z60.2 Problems related to living alone; Z87.891 Personal history of nicotine dependence; Z95.0 Presence of cardiac pacemaker; Z79.82 Long term (current) use of aspirin; Z79.84 Long term (current) use of oral hypoglycemic drugs; Z11.52 Encounter for screening for COVID-19; Z90.49 Acquired absence of other specified parts of digestive tract
CPT/HCPCS: 51702; 51798; 71046; 71275; 80048; 80053; 80202; 81003; 81015; 82533; 82962; 83605; 83690; 83721; 83880; 84439; 84443; 84484; 85025; 85610; 85652; 85730; 86140; 86308; 87015; 87040; 87086; 87207; 87502; 87641; 87811; 93005; 93288; 93306; 94640; 96361; 96365; 96366; 96375; 96376; 99291; Q9950; Q9967

== ENCOUNTER → 2025-05-18 07:20 | Outpatient (REF) | payer OTHER, SELFPAY ==
[2025-05-18 08:45] LABS: Hematocrit 51.3 % (39.0-52.0); Hemoglobin 16.8 g/dL (13.0-18.0); Mean Corp Hgb Conc. 32.7 g/dL (33.0-37.0); Mean Corpuscular Volume 91.0 fL (80.0-94.0); Nucleated Red Blood Cells % 0 % (-); Platelet Count 176 10^3/uL (130-400); Red Cell Dist. Width 14.2 % (11.5-14.5)
== END ==
LOC: REG 07:20
PROVIDERS: ATTENDING PHYSICIAN Internal Medicine Cardiovascular Disease; FAMILY PHYSICIAN Family Medicine
DX: D69.6 Thrombocytopenia, unspecified (principal)
CPT/HCPCS: 36415; 85025

== ENCOUNTER → 2025-06-27 07:14 | Outpatient (REF) | payer OTHER, SELFPAY ==
[2025-06-27 09:33] LABS: Hematocrit 54.0 % (39.0-52.0); Hemoglobin 18.0 g/dL (13.0-18.0); Mean Corp Hgb Conc. 33.3 g/dL (33.0-37.0); Mean Corpuscular Volume 87.7 fL (80.0-94.0); Nucleated Red Blood Cells % 0 % (-); Platelet Count 169 10^3/uL (130-400); Red Cell Dist. Width 13.5 % (11.5-14.5)
[2025-06-27 09:43] LABS: HDL Cholesterol 49 mg/dl; LDL Cholesterol, Calculated 66 mg/dl; Very Low Density Lipoprotein 33 mg/dl (0-30)
[2025-06-27 09:52] LABS: Total Iron Binding Capacity 367 ug/dl (261-462)
[2025-06-27 10:31] LABS: TSH 8.36 uIU/ml (0.47-4.68)
[2025-06-27 10:50] LABS: Vitamin B12 176 pg/ml (239-931)
== END ==
LOC: REG 07:14
PROVIDERS: ATTENDING PHYSICIAN Nurse Practitioner Family
DX: E03.9 Hypothyroidism, unspecified (principal); E78.2 Mixed hyperlipidemia; D69.6 Thrombocytopenia, unspecified; D58.2 Other hemoglobinopathies; R71.8 Other abnormality of red blood cells; I42.9 Cardiomyopathy, unspecified
CPT/HCPCS: 36415; 80061; 82607; 83550; 84439; 84443; 85025

== ENCOUNTER → 2025-08-02 15:14 | Outpatient (REF) | payer OTHER, SELFPAY | LOC: HWRAD 15:14 | PROVIDERS: ATTENDING PHYSICIAN Nurse Practitioner Family | DX: E04.1 Nontoxic single thyroid nodule (principal) | CPT/HCPCS: 76536 ==

== ENCOUNTER 2025-09-18 05:46 | Inpatient (IN) | payer OTHER, SELFPAY ==
--- NOTE | 2025-08-25 14:01 | CM ---
Demographics: lives alone
Living situation:
Support Person Post Operatively: daughter
History of
VN:
SNF:
Outpatient: [facility], patient's daughters with make appointments
Has patient purchased required equipment: yes
PCP: confirmed
Pharmacy: [facility]
Post Operative Discharge Plan:23 hour, Outpatient PT with [facility]
[2025-09-04 13:55] VITALS: BMI 30.7
[2025-09-04 14:02] LABS: Hematocrit 54.4 % (39.0-52.0); Hemoglobin 18.2 g/dL (13.0-18.0); Mean Corp Hgb Conc. 33.5 g/dL (33.0-37.0); Mean Corpuscular Volume 87.7 fL (80.0-94.0); Platelet Count 155 10^3/uL (130-400); Red Cell Dist. Width 14.0 % (11.5-14.5)
--- NOTE | 2025-09-04 14:21 | VNURNOTE ---
Chart Reviewed. Pt scheduled for L TKA on 09/18 -Noted will be 23 hr OBS. Pt to start outpt PT on 09/21. No referral placed for [facility].
[2025-09-04 14:24] VITALS: BMI 30.7
[2025-09-04 14:26] LABS: ALT (SGPT) 30 U/L (0-50); AST (SGOT) 25 U/L (17-59); Albumin 4.6 g/dl (3.5-5.0); Alkaline Phosphatase 101 U/L (38-126); Blood Urea Nitrogen 16 mg/dl (9-20); Calcium 9.0 mg/dl (8.4-10.2); Carbon Dioxide 23 mmol/L (22-30); Chloride 106 mmol/L (98-107); Estimated Creatinine Clearance 42 ml/min; Glucose 92 mg/dl (70-99); Potassium 4.5 mmol/L (3.5-5.1); Sodium 137 mmol/L (135-145); Total Protein 7.2 g/dl (6.3-8.2); eGFR 46.48
[2025-09-05 07:26] LABS: Glycohemoglobin (HgbA1c) 5.9 % (4.0-5.9)
--- NOTE | 2025-09-15 11:35 | CM ---
executive account manager reviewed patient's chart and patient is for surgery on 09/18/25 for total knee arthroplasty with Dr. Farmer, patient is for possible discharge 09/19/25, 23hr admission and patient has scheduled outpatient PT for 09/21/25 at [facility].
[2025-09-18] VITALS (16 sets, daily range): BP systolic 95–125; BP diastolic 53–74; PULSE 60–70; O2SAT 95; BMI 30.7; BMI 30.4
[2025-09-18] MEDS: CELEBREX 200 MG PO (06:38)
[2025-09-18] MEDS: TYLENOL 650 MG PO ×4 (06:38→20:33)
[2025-09-18] MEDS: NORMOSOL-R/PLASMALYTE-A 1000 IV ×2 (06:38→11:20)
--- NOTE | 2025-09-18 06:44 | W.PN.ORTHO ---
Today's Communication / Plan
-
d/c when stable
Assessment
.
Assessment:
Nonobstructive coronary artery disease.
NSVT.
NICM/HFrEF 30%-35% TTE 05/2025.
SSS s/p pacemaker with upgrade to BIV-ICD.
-tele
0decrease IVF rate-daily weight
-continue Amiodarone + GDMT and _ Midodrine w/parameter to insure heart meds
COPD/history of tobacco abuse.
Obstructive sleep apnea, noncompliant with CPAP.
-O2 hs
-Incentive spirometry
-monitor sats
Vertigo.
-fall precautions
Plan
.
Surgery / Date: L ADRIAN Farmer 09/18/25
DVT Prophylaxis: Aspirin
Activity:
Out of bed.
PT/OT
Discharge Plan: Home w/ Outpatient PT
Vital Signs and Labs
.
Vital Signs and Labs:
Lab Results
09/04/25 12:28
09/04/25 12:28
Temp Pulse Resp BP Pulse Ox
98.6 F 79 16 123/68 94
09/18/25 06:14 09/18/25 06:14 09/18/25 06:14 09/18/25 06:14 09/18/25 06:14
--- NOTE | 2025-09-18 07:12 | W.DS.TRANS ---
DC Summary - Repair Technician
-
Discharge Instructions:
Discharge Diagnosis/Procedures L TKA Dr Farmer 09/18/25
Diet As tolerated
Activity With Walker
Driving Restrictions No driving
Bathing Restrictions OK to Shower
Other Services PT
Instructions:
Stand-Alone Forms: Total Hip/Knee Replacement D/C
Changes to Home Medications: Yes
Discharge Medications:
DC Medications w/original date entered in [employer]
budesonide-formoterol HFA 160 mcg-4.5 mcg/actuation aerosol inhaler 2 puff inhalation R BID Lung/breathing issues 10/05/22
pantoprazole 40 mg tablet,delayed release 40 mg PO DAILY Gastrointestinal issue 30 days #30 tabs 08/27/23
atorvastatin 40 mg tablet 40 mg PO DAILY High Cholesterol 05/10/24
metoprolol succinate 25 mg tablet,extended release 24 hr 12.5 mg PO DAILY Heart Failure 05/10/24
sacubitril 24 mg-valsartan 26 mg tablet (Entresto) 1 tab PO HS Heart Failure 05/10/24
amiodarone 200 mg tablet (Pacerone) 200 mg PO DAILY Arrhythmia 05/09/25
furosemide 40 mg tablet (Lasix) 20 mg PO DAILY Fluid Retention/Swelling 05/09/25
guaifenesin 600 mg tablet, extended release 12 hr (Mucinex) 600 mg PO BID Congestion 05/09/25
levocetirizine 5 mg tablet (Xyzal) 5 mg PO HS Allergies 05/09/25
dapagliflozin propanediol 10 mg tablet (Farxiga) 10 mg PO DAILY Heart Failure 08/30/25
levothyroxine 88 mcg tablet 88 mcg PO DAILY 08/30/25
meclizine 25 mg tablet 25 mg PO BID PRN vertigo 08/30/25
mupirocin 2 % topical ointment 1 applic topical BID infection prevention #1 tube 09/01/25
cefadroxil 500 mg capsule 500 mg PO BID infection prevention #14 caps 09/04/25
dexamethasone 4 mg tablet 4 mg PO BID inflammation #6 tabs 09/04/25
gabapentin 300 mg capsule 300 mg PO HS sleep/pain #10 caps 09/04/25
ondansetron 4 mg disintegrating tablet 4 mg PO Q6H PRN n/v #20 tabs 09/04/25
oxycodone 5 mg tablet 5 mg PO Q6H PRN 1 tab moderate pain, 2 tabs severe pain #30 tabs 09/04/25
Saccharomyces boulardii 250 mg capsule (Florastor) 250 mg PO BID #1 cap 09/18/25
acetaminophen 325 mg tablet (Tylenol) 650 mg (2 x 325 mg) PO QID #0 tabs 09/18/25
aspirin 325 mg tablet 325 mg PO DAILY blood clot prevention #1 tab 09/18/25
docusate sodium 100 mg capsule (Colace) 100 mg PO BID stool softner #1 cap 09/18/25
magnesium hydroxide 400 mg/5 mL oral suspension (Milk of Magnesia) 30 ml PO HS PRN constipation #1 mL 09/18/25
sennosides 8.6 mg tablet (Senokot) 17.2 mg (2 x 8.6 mg) PO BID laxative #2 tabs 09/18/25
Home Medication Changes
mupirocin 2 % topical ointment 1 applic topical BID infection prevention #1 tube 09/01/25
cefadroxil 500 mg capsule 500 mg PO BID infection prevention #14 caps 09/04/25
dexamethasone 4 mg tablet 4 mg PO BID inflammation #6 tabs 09/04/25
gabapentin 300 mg capsule 300 mg PO HS sleep/pain #10 caps 09/04/25
ondansetron 4 mg disintegrating tablet 4 mg PO Q6H PRN n/v #20 tabs 09/04/25
oxycodone 5 mg tablet 5 mg PO Q6H PRN 1 tab moderate pain, 2 tabs severe pain #30 tabs 09/04/25
Saccharomyces boulardii 250 mg capsule (Florastor) 250 mg PO BID #1 cap 09/18/25
acetaminophen 325 mg tablet (Tylenol) 650 mg (2 x 325 mg) PO QID #0 tabs 09/18/25
aspirin 325 mg tablet 325 mg PO DAILY blood clot prevention #1 tab 09/18/25
docusate sodium 100 mg capsule (Colace) 100 mg PO BID stool softner #1 cap 09/18/25
magnesium hydroxide 400 mg/5 mL oral suspension (Milk of Magnesia) 30 ml PO HS PRN constipation #1 mL 09/18/25
sennosides 8.6 mg tablet (Senokot) 17.2 mg (2 x 8.6 mg) PO BID laxative #2 tabs 09/18/25
Pending Results: No
[2025-09-18 11:12] LABS: Glucose - Point of Care 118 mg/dl (70-99)
[2025-09-18] MEDS: LIPITOR 40 MG PO (11:14)
[2025-09-18] MEDS: PROTONIX 40 MG PO (11:15)
[2025-09-18] MEDS: SYNTHROID 88 MCG PO (11:15)
[2025-09-18] MEDS: MUCINEX 600 MG PO ×2 (11:15→20:32)
[2025-09-18] MEDS: FARXIGA 10 MG PO (11:16)
--- NOTE | 2025-09-18 11:57 | CM ---
Chart reviewed and will await PT/OT evaluations, plan is for outpatient physical therapy, per patient he has outpatient physical therapy set up at [facility] 09/21/25.
Plan; Home with outpatient physical therapy 09/21/25.
[2025-09-18] MEDS: LASIX 20 MG PO (13:35)
[2025-09-18] MEDS: ANCEF 5 IV ×2 (15:08→22:05)
[2025-09-18] MEDS: SYMBICORT 160/4.5 MCG INHALER INH (15:25)
[2025-09-18] MEDS: ROXICODONE 5 MG PO (16:33)
--- NOTE | 2025-09-18 17:17 | PTCARENOTE ---
Pt arrived to [facility] s/p L TKA with spinal. AV paced on the monitor. Left knee dressing with scant sanguineous drainage. Thigh high teds/ foot pumps on pt. Admission questions answered. Bed locked and in lowest position. Care ongoing.
[2025-09-18] MEDS: ASPIRIN 325 MG PO (17:23)
[2025-09-18] MEDS: SYMBICORT 160/4.5 MCG INHALER 2 PUFF INH (19:17)
[2025-09-18] MEDS: COLACE PO (20:31)
[2025-09-18] MEDS: SENOKOT PO (20:32)
[2025-09-18] MEDS: BACTROBAN 2% OINTMENT 1 APPLIC NASAL (20:32)
[2025-09-18] MEDS: DECADRON 4 MG IV (20:32)
[2025-09-18] MEDS: NEURONTIN 300 MG PO (22:05)
[2025-09-18] MEDS: ENTRESTO 24 MG/26 MG 1 TAB PO (22:05)
[2025-09-18] MEDS: ZYRTEC 5 MG PO (22:05)
[2025-09-19] VITALS (7 sets, daily range): BP systolic 91–116; BP diastolic 48–84; PULSE 68–69; O2SAT 91–94; BMI 30.4
[2025-09-19] MEDS: TYLENOL PO (01:00)
[2025-09-19] MEDS: MILK OF MAGNESIA 30 ML PO (01:40)
[2025-09-19] MEDS: TYLENOL 650 MG PO ×3 (04:57→12:37)
[2025-09-19] MEDS: SYNTHROID 88 MCG PO (04:58)
[2025-09-19] MEDS: SYMBICORT 160/4.5 MCG INHALER 2 PUFF INH (08:08)
[2025-09-19] MEDS: MUCINEX 600 MG PO (08:41)
[2025-09-19] MEDS: COLACE 100 MG PO (08:41)
[2025-09-19] MEDS: FARXIGA 10 MG PO (08:41)
[2025-09-19] MEDS: LIPITOR 40 MG PO (08:41)
[2025-09-19] MEDS: LASIX PO (08:42)
[2025-09-19] MEDS: DECADRON 4 MG IV (08:42)
[2025-09-19] MEDS: BACTROBAN 2% OINTMENT 1 APPLIC NASAL (08:43)
[2025-09-19] MEDS: ASPIRIN 325 MG PO (08:43)
[2025-09-19] MEDS: SENOKOT 17.2 MG PO (08:44)
[2025-09-19] MEDS: PROTONIX 40 MG PO (08:44)
[2025-09-19] MEDS: ROXICODONE 5 MG PO (08:51)
--- NOTE | 2025-09-19 09:07 | CM ---
Addendum entered by Callie Horn 09/19/25 10:23:
Patient has selected home with visiting nurses and referral sent to [facility].
Original Note:
Chart reviewed and patient's plan is to return to home with outpatient physical therapy at [facility]. Patient's daughters to assist with transportation to outpatient therapy.
Plan; Home with outpatient physical therapy at [facility] 09/21/25.
I
--- NOTE | 2025-09-19 10:54 | VNURNOTE ---
Chart reviewed. Met with patient and daughter at bedside. Confirmed that patient's plan is to return to home with outpatient physical therapy at [facility]. Patient's daughter Effie at bedside and confirmed she will assist
with care and transportation to outpatient therapy. This author called [facility], spoke with juan who confirmed that pt is scheduled for 09/21 at 1400 for PT. Daughter and pt updated on time and are agreeable. CM Callie, PT Maylin and
Ortho PA Haily Ramirez all aware of DC plan.
NO [facility] referral.
Plan; Home with outpatient physical therapy at [facility] 09/21/25.
--- NOTE | 2025-09-19 11:16 | W.PN.ORTHO ---
Today's Communication / Plan
-
d/c
Assessment
.
Distal Motor Intact: Yes
Dressing:
Clean, dry and intact.
Assessment:
Nonobstructive coronary artery disease.
NSVT.
NICM/HFrEF 30%-35% TTE 05/2025.
SSS s/p pacemaker with upgrade to BIV-ICD.
-decreased IVF rate-daily weight stable
-continue Amiodarone + GDMT and _ Midodrine w/parameter to insure heart meds
-stable on tele
COPD/history of tobacco abuse.
Obstructive sleep apnea, noncompliant with CPAP.
-O2 hs
-Incentive spirometry
-O2 sats stable on RA
Vertigo.
-fall precautions
Plan
.
Surgery / Date: L ADRIAN Farmer 09/18/25
DVT Prophylaxis: Aspirin
Activity:
Out of bed.
PT/OT
Discharge Plan: Home w/ Outpatient PT
Subjective
.
.:
Patient resting comfortably.
Vital Signs and Labs
.
Vital Signs and Labs:
Lab Results
09/04/25 12:28
09/04/25 12:28
Temp Pulse Resp BP Pulse Ox
97.6 F 73 16 105/48 96
09/19/25 07:35 09/19/25 08:18 09/19/25 08:18 09/19/25 07:35 09/19/25 08:18
Non-invasive Hgb result: 15
Physical Exam
-
HEENT: No pallor, cyanosis, or jaundice. Throat clear.
NECK: Supple. No JVD.
RESPIRATORY: Lungs clear to auscultation.
CVS: S1, S2 normal. RRR.� No murmur, rub or gallop.
ABDOMEN: Soft, non-tender. No distension. BS+/normal.
EXTREMITIES: strength equal, no calf pain with palpation
CHEMICAL DEPENDENCY ATTENDANT: AOx3. No focal deficits. stream control officer grossly intact
== END 2025-09-19 14:41 | disposition home health service (06) | DRG 470 ==
LOC: 2 SOUTH 05:46
PROVIDERS: ADMITTING PHYSICIAN Specialist; FAMILY PHYSICIAN Nurse Practitioner Family
PROC: 0SRD0J9 Replacement of Left Knee Joint with Synthetic Substitute, Cemented, Open Approach (ICD-10-PCS; 2025-09-18)
DX: M17.12 Unilateral primary osteoarthritis, left knee (principal); I13.0 Hypertensive heart and chronic kidney disease with heart failure and stage 1 through stage 4 chronic kidney disease, or unspecified chronic kidney disease; I47.20 Ventricular tachycardia, unspecified; I50.22 Chronic systolic (congestive) heart failure; I42.8 Other cardiomyopathies; E66.9 Obesity, unspecified; I25.10 Atherosclerotic heart disease of native coronary artery without angina pectoris; K21.9 Gastro-esophageal reflux disease without esophagitis; N18.30 Chronic kidney disease, stage 3 unspecified; J44.9 Chronic obstructive pulmonary disease, unspecified; G47.33 Obstructive sleep apnea (adult) (pediatric); E78.5 Hyperlipidemia, unspecified; M51.369 Other intervertebral disc degeneration, lumbar region without mention of lumbar back pain or lower extremity pain; Z60.2 Problems related to living alone; Z96.652 Presence of left artificial knee joint; Z68.30 Body mass index [BMI] 30.0-30.9, adult; Z95.0 Presence of cardiac pacemaker; Z87.891 Personal history of nicotine dependence; Z91.199 Patient's noncompliance with other medical treatment and regimen due to unspecified reason; Z87.19 Personal history of other diseases of the digestive system; Z90.49 Acquired absence of other specified parts of digestive tract
CPT/HCPCS: 36415; 73560; 80053; 82962; 83036; 85027; 87070; 94640; 97110; 97116; 97162; 97167; 97530; 97535; C1713; C1776

== ENCOUNTER 2025-09-25 09:37 | Outpatient (RCR) | payer OTHER, SELFPAY | END 2025-10-02 23:59 | disposition home or self-care (01) | LOC: RPT 09:37 | PROVIDERS: ATTENDING PHYSICIAN Specialist; FAMILY PHYSICIAN Nurse Practitioner Family | DX: Z47.1 Aftercare following joint replacement surgery (principal); Z73.6 Limitation of activities due to disability; R26.2 Difficulty in walking, not elsewhere classified; M62.81 Muscle weakness (generalized); M25.562 Pain in left knee; Z96.652 Presence of left artificial knee joint | CPT/HCPCS: 97010; 97110; 97140; 97162 ==

== ENCOUNTER 2025-09-29 04:01 | Emergency (ER) | payer OTHER, SELFPAY ==
[2025-09-29 04:05] VITALS: BP 116/57
[2025-09-29] MEDS: ROXICODONE 5 MG PO (04:55)
[2025-09-29] MEDS: TORADOL 15 MG IM (04:55)
--- NOTE | 2025-09-29 05:51 | ED.GENMED ---
History of Present Illness
General
Chief Complaint: Post Operative Problem(s)
Source: patient and family (Daughter)
Time Seen by Provider: 09/29/25 04:31
Nursing documentation reviewed up to this point in time: agreed with
History of Present Illness
History of Present Illness:
Note:
CHIEF COMPLAINT(S)
Pain and swelling following recent surgery.
HISTORY OF PRESENT ILLNESS
The patient is an 80-year-old male who recently underwent surgery. Post-surgery, he initially reported a significant reduction in pain and was active, described as 'bopping around with his walker.' However, after approximately four to five days
post-operatively, he experienced a notable increase in pain and swelling, particularly after driving to [place] and walking around. His ankle and foot became swollen, which has persisted. The patient reports taking two extra pain medications due to
the severity of the pain, noting, 'The pain was bad, and I got scared.' He is currently taking a full aspirin daily as per his doctors instructions, after initially taking an 81 mg dose every other day. The examination revealed that the surgical
wound appears well-healed with no signs of excessive swelling or the need for imaging at this time. It is suspected that the patient�s lack of consistent limb elevation may be contributing to the swelling. The importance of keeping the leg elevated
while seated was emphasized to the patient.
PHYSICAL EXAM
General: Alert, no acute distress.
Skin: Warm, dry.
Head: Normocephalic, atraumatic.
Neck: Supple, trachea midline.
Eye Ears, nose, mouth, and throat: Oral mucosa moist.
Cardiovascular: Normal peripheral perfusion, No edema.
Respiratory: Respirations are non-labored.
Gastrointestinal: Abdomen nondistended.
Back: Normal range of motion, Normal alignment.
Musculoskeletal: Normal range of motion, normal strength, noted swelling in ankle and foot associated with recent surgery.
Neurological: Alert and oriented to person, place, time, and situation, No focal neurological deficit observed.
Psychiatric: Cooperative, appropriate mood & affect.
PLAN
- Administer a corticosteroid injection to manage inflammation.
- Provide oxycodone for pain management.
- Emphasize the importance of limb elevation when seated to aid in reducing swelling.
- Follow up with Dr. Guevara office tomorrow to reassess pain management strategy and consider alternative medications if necessary.
- No immediate need for imaging or ultrasound, pending reassessment based on symptom progression.
DIFFERENTIAL DIAGNOSIS
The Differential Diagnosis includes, in no particular order and is not limited to:
- Postoperative edema
- Infection
- Deep vein thrombosis
- Soft tissue injury
- Lymphedema
- Arthritis exacerbation
- Compartment syndrome
- Venous insufficiency
- Cellulitis
- Medication side effect
CARE-UPDATE
09/29/25 - 05:15
The patient reports decreased need for pain medication and better mobility, indicating improvement in post-operative recovery. Continue current observation and reassess as necessary.
Disposition:
SUMMARY OF ENCOUNTER
The patient is an 80-year-old male presenting with left knee post-operative pain. His surgical wound appears intact, and he denies having fever or chills. The patient reports that his pain has improved with the pain medication administered in the
emergency department. He is currently experiencing a verbal argument with his daughter and wishes to be discharged home.
DISPOSITION
Discharge to home.
ASSESSMENT
The patient presents with post-operative pain following recent left knee surgery. The pain is managed with medication, and there is no indication of infection or complications with the surgical wound.
EMERGENCY TREATMENTS ADMINISTERED
Pain medications were provided to the patient during his visit, which improved his pain.
PLAN
The patient will be discharged to home with pain management instructions and advised to continue follow-up with his orthopedic surgeon.
MEDICATION RECONCILIATION
The patient was provided with pain medication in the emergency department, resulting in improved pain control. Additional pain medication was offered but declined by the patient.
MEDICAL DECISION MAKING
1. Number and Complexity of Problems Addressed: Chronic conditions affecting care include post-operative pain management. Differential Diagnosis includes postoperative edema and other potential complications.
2. Data:
- Category 1: No additional testing or imaging was conducted.
3. Risk: Consideration of admission/observation was evaluated but deemed unnecessary. The patients symptoms are manageable with outpatient care, and admission is not required at this time.
DIAGNOSIS
- Postoperative pain, unspecified (ICD-10: G89.18).
Past History
Past History
ED Past Medical History: Arrthythmia (Non-sustained Ventricular Tachycardia w/ Pacemaker), CHF (moderately reduced ejection fraction), COPD, HTN and Hypercholesterolemia
ED Past Surgical History: Orthopedic; Negative Cardiac (cath 10/2022)
Social History
Tobacco: Former smoker
Alcohol: None
Drug: None
Personal:
Living: with family
Employment: Retired
Family History
Family History: Hypertension
Phy Exam
Physical Exam
Physical Exam:
.
Course
Orders/Labs/Results
Orders:
Orders
09/29/25 04:46
Ketorolac [Toradol] 15 mg IM NOW STA
Oxycodone [Roxicodone] 5 mg PO NOW STA
Vital Signs
Initial and Last Documented VS:
Initial Vital Signs
Temp Pulse Resp BP Pulse Ox
98.1 F 83 18 116/57 96
09/29/25 04:05 09/29/25 04:05 09/29/25 04:05 09/29/25 04:05 09/29/25 04:05
Last Documented Vital Signs
Temp Pulse Resp BP Pulse Ox
98.1 F 83 18 116/57 96
09/29/25 04:05 09/29/25 04:05 09/29/25 04:05 09/29/25 04:05 09/29/25 05:58
*Pulse Oximetry
SaO2: 96
Oxygen Mode of Delivery: Room air
Patient hypoxic: no
*Critical Care Note
Total Time (30-74mins, 75-104mins- exclusive of procedures): Not Applicable
ED Attending Note
-
Portions of this chart may have been created with voice recognition software.� Occasional wrong word or��sound alike� substitutions may have occurred due to the inherent limitations of voice recognition software.
Discharge Plan
Departure
Patient Disposition: Home (Routine Discharge)
Date of Disposition: 09/29/25
Time of Disposition: 05:53
Patient with high blood pressure during this ER visit?: Yes
Discharge Problem:
Post-operative pain
Instructions: Wound Care (DC), Postoperative Pain (DC), BLOOD PRESSURE
Prescriptions:
New
tramadol 50 mg tablet
50 mg PO BID PRN (Reason: Pain) Qty: 10 0RF
No Action
budesonide-formoterol 160-4.5 mcg/actuation Hfa Aerosol Inhaler
2 puff inhalation R BID
pantoprazole 40 mg Tablet,Delayed Release (Dr/Ec)
40 mg PO DAILY 30 Days Qty: 30 0RF
atorvastatin 40 mg tablet
40 mg PO DAILY
metoprolol succinate 25 mg tablet extended release 24 hr
12.5 mg PO DAILY
sacubitril-valsartan [Entresto] 24-26 mg tablet
1 tab PO HS
levocetirizine [Xyzal] 5 mg Tablet
5 mg PO HS
guaifenesin [Mucinex] 600 mg Tablet Extended Release 12hr
600 mg PO BID
furosemide [Lasix] 40 mg tablet
20 mg PO DAILY
amiodarone [Pacerone] 200 mg tablet
200 mg PO DAILY
levothyroxine 88 mcg Tablet
88 mcg PO DAILY
dapagliflozin propanediol [Farxiga] 10 mg Tablet
10 mg PO DAILY
meclizine 25 mg Tablet
25 mg PO BID PRN (Reason: vertigo)
cefadroxil 500 mg capsule
500 mg PO BID Qty: 14 0RF
Rx Instructions:
*Take w/ food
*Take w/ probiotic
*POST-OP USE
dexamethasone 4 mg tablet
4 mg PO BID Qty: 6 0RF
Rx Instructions:
take with food
post-op use only
gabapentin 300 mg capsule
300 mg PO HS Qty: 10 0RF
Rx Instructions:
*POST-OP USE ONLY
ondansetron 4 mg tablet,disintegrating
4 mg PO Q6H PRN (Reason: n/v) Qty: 20 0RF
Rx Instructions:
take 1/2h b/f pain med if recurrent nausea
allow to dissolve in mouth w/o water
oxycodone 5 mg tablet
5 mg PO Q6H PRN (Reason: 1 tab moderate pain, 2 tabs severe pain) Qty: 30 0RF
Rx Instructions:
Ongoing therapy
POST-OP USE ONLY
sennosides [Senokot] 8.6 mg tablet
17.2 mg PO BID Qty: 2 0RF
aspirin 325 mg tablet
325 mg PO DAILY Qty: 1 0RF
Rx Instructions:
Take with food
magnesium hydroxide [Milk of Magnesia] 400 mg/5 mL suspension
30 ml PO HS PRN (Reason: constipation) Qty: 1 0RF
Rx Instructions:
CONTINUE colace W/senokot-if no bowel movement 1 day POST-OP -add milk of mag
docusate sodium [Colace] 100 mg capsule
100 mg PO BID Qty: 1 0RF
Saccharomyces boulardii [Florastor] 250 mg capsule
250 mg PO BID Qty: 1 0RF
acetaminophen [Tylenol] 325 mg Tablet
650 mg PO QID Qty: 0 0RF
mupirocin 2 % ointment
1 applic topical BID Qty: 1 0RF
Patient Comments:
started treatment 09/15/25 and completed BID
Referrals:
Ivon Cotto NP [Family Provider, Family Practice]
Activity Restrictions/Additional Instructions:
Thank You for choosing [facility].
It was a pleasure meeting you and taking part in your care. We hope for your continued healing and wellness.
Please read discharge instructions in their entirety. However, they are for general education and may not describe your exact diagnosis at discharge. Information on your ER visit and medical conditions were discussed with you along with appropriate
follow up information...
If indicated, please take your medications as instructed and indicated on discharge paperwork.
Please schedule a follow up appointment as directed. Call to schedule an appointment
Please return to the emergency department with ANY change in, persisting, or worsening of symptoms. If any of your symptoms do not improve, or persist, or become more severe within 6-12 hours, please return to the emergency department for further
care.
Please return to the emergency department if you develop a headache, neck pain/stiffness, fever greater than 100.4F, chest pain, shortness of breath, persistent nausea, vomiting, slurred speech, difficulty walking, numbness/tingling, weakness, signs
of infection or any other symptoms that are worrisome to you.
If you have any questions or concerns please do not hesitate to call the Hospital at .
Interventions
Interventions:
*General Assessment Last Done: 09/29/25 04:05
*Neglect/Abuse Screening Last Done: 09/29/25 04:05
*ED COVID-19 Vaccine History Last Done: 09/29/25 04:05
*ED Influenza Vaccine History Last Done: 09/29/25 04:05
[facility] Risk Assessment Tool Last Done: 09/29/25 04:24
*Risk Screen - Suicide (C-SSRS) Last Done: 09/29/25 04:05
*Nursing Disposition Last Done: 09/29/25 06:16
ED-Skin Assessment Last Done: 09/29/25 04:23
Discharge Date and Time
Discharge Date/Time: 09/29/25 06:16
Print Language: ROMANIAN
== END 2025-09-29 06:16 | disposition home or self-care (01) ==
LOC: EMR 04:01
PROVIDERS: EMERGENCY PHYSICIAN Student in an Organized Health Care Education/Training Program; FAMILY PHYSICIAN Nurse Practitioner Family
DX: M79.89 Other specified soft tissue disorders (principal); M25.562 Pain in left knee; M25.472 Effusion, left ankle; G89.18 Other acute postprocedural pain; I11.0 Hypertensive heart disease with heart failure; I50.9 Heart failure, unspecified; J44.9 Chronic obstructive pulmonary disease, unspecified; E78.00 Pure hypercholesterolemia, unspecified; G47.30 Sleep apnea, unspecified; K57.30 Diverticulosis of large intestine without perforation or abscess without bleeding; Z79.82 Long term (current) use of aspirin; Z95.810 Presence of automatic (implantable) cardiac defibrillator; Z86.16 Personal history of COVID-19; Z85.828 Personal history of other malignant neoplasm of skin; Z87.891 Personal history of nicotine dependence; Z98.0 Intestinal bypass and anastomosis status
CPT/HCPCS: 99284; 96372